=== PATIENT | male | born 1930 ===

== ENCOUNTER 2016-07-11 15:15 | Inpatient (IN) | payer MEDICARE, MEDICAID ==
[2016-07-11 15:15] VITALS: BMI 31.8
--- NOTE | 2016-07-11 16:40 | ED PDOC ---
Lower Extremity Pain/Injury Time Seen by Provider: 07/11/16 16:01 Chief Complaint (Nursing): Lower Extremity Problem/Injury Additional Complaint(s): Patient is an 85 y/o F with hx of htn, hyperlipidemia, on eliquis (for ?clots), presenting after fall 15 days ago. He reports that he walks with a cane at baseline and lost his footing- falling onto his R knee. He reports increasing pain and swelling since that time. Also reports swelling to L lower extremity. He reports dyspnea on exertion and intermittent chest pain. He reports prior cardiac workup, but is a poor historian and cannot provide further information. He reports that he ambulates at baseline with a cane but the lower extremity edema is making it almost impossible to walk. PMD: [facility] Past Medical History Vital Signs: Last Vital Signs Temp 97.6 F 07/11/16 15:40 Pulse 60 07/11/16 15:40 Resp 20 07/11/16 15:40 BP 148/75 07/11/16 15:40 Pulse Ox 98 07/11/16 15:40 - Medical History PMH: Anxiety, Arthritis, Back Problems, HTN Denies: HIV, Chronic Kidney Disease - Surgical History Surgical History: Back Surgery - Family History Family History: States: Unknown Family Hx - Home Medications Home Medications: Ambulatory Orders Medication Instructions Recorded Hydrochlorothiazide [HCTZ] 25 mg PO S[place]UTHSA 04/07/14 Pantoprazole [Protonix EC Tab] 40 mg PO DAILY 04/07/14 Sertraline [Zoloft] 100 mg PO DAILY 04/07/14 Tamsulosin HCl [Flomax] 0.4 mg PO DAILY 04/07/14 Albuterol 0.083% [Albuterol 0.083% 3 ml IH Q4H PRN 09/16/15 Inhal Aster (2.5 mg/3 ml) UD] Albuterol HFA [Ventolin HFA 90 1 puff IH TID PRN 09/16/15 mcg/actuation (8 g)] Aspirin [Ecotrin] 81 mg PO DAILY 09/16/15 Atorvastatin [Lipitor] 20 mg PO HS 09/16/15 Finasteride [Proscar] 5 mg PO DAILY 09/16/15 Gabapentin [Neurontin] 300 mg PO TID 09/16/15 Hydrochlorothiazide [HCTZ] 50 mg PO MOWEFR 09/16/15 Ipratropium 0.02% [Atrovent] 2.5 ml IH Q4 PRN 09/16/15 Lisinopril [Zestril] 20 mg PO DAILY 09/16/15 Metoprolol Succinate [Toprol XL] 100 mg PO DAILY 09/16/15 Multivitamin [Multi-Vitamin Daily] 1 tab PO DAILY 09/16/15 Naproxen 500 mg PO BID PRN 09/16/15 Torsemide [Demadex] 20 mg PO DAILY 09/16/15 Apixaban [Eliquis] 2.5 mg PO BID #60 tablet 09/18/15 Clindamycin [Cleocin] 600 mg PO Q8 #24 cap 09/18/15 Ferrous Sulfate 325 mg PO BID #60 tablet 09/18/15 Sennosides/Docusate Sodium [Eq 1 each PO BID #60 tablet 09/18/15 Stool Softener-Laxative Tab] - Allergies Allergies/Adverse Reactions: Allergies Allergy/AdvReac Type Severity Reaction Status Date / Time No Known Allergies Allergy Verified 07/11/16 15:40 Review of Systems Constitutional: Negative for: Fever, Chills Cardiovascular: Positive for: Chest Pain, Edema. Negative for: Palpitations Respiratory: Positive for: Shortness of Breath, SOB with Exertion. Negative for : Cough Gastrointestinal: Negative for: Nausea, Vomiting, Abdominal Pain, Diarrhea, Constipation Genitourinary Male: Negative for: Dysuria Musculoskeletal: Positive for: Other (knee pain). Negative for: Neck Pain Neurological: Negative for: Weakness, Numbness Psych: Negative for: Anxiety, Depression Physical Exam - Physical Exam Appears: Positive for: Well, Non-toxic Head Exam: Positive for: ATRAUMATIC, NORMAL INSPECTION, NORMOCEPHALIC Skin: Positive for: Normal Color Neck: Positive for: Normal, Supple Cardiovascular/Chest: Positive for: Regular Rate, Rhythm Respiratory: Positive for: Normal Breath Sounds. Negative for: Accessory Muscle Use, Stridor, Wheezing Gastrointestinal/Abdominal: Positive for: Soft. Negative for: Tenderness, Distended Extremity: Positive for: Pedal Edema, Other (2+ pitting edema extending up toward knee. Swelling to R knee. Normal ROM. Distal pulses intact) - Laboratory Results Result Diagrams: 07/11/16 16:40 07/11/16 16:40 - ECG O2 Sat by Pulse Oximetry: 98 Medical Decision Making Medical Decision Making: Patient has pitting edema b/l. Will get xray R knee to r/o fracture. Will get duplex to r/o dvt. Will get labs and ua to evaluate for cardiac, renal or hepatic causes of lower extremity edema. 6:17PM BNP and trop x 1 negative. Chart review shows prior normal echo in 2014. Creatinine WNL. Cxray negative. UA shows proteinuria. Knee xray negative. EKG shows NSR at 64bpm with no ST changes, but sinus arrhythmia 6:56PM U/S negative for DVT. Spoke to family resource specialist. Recommend tele observation for diuresis and further evaluation of lower extremity edema. Disposition - Clinical Impression Clinical Impression: Knee pain, Edema - Disposition Disposition: Against Medical Advice Disposition Time: 19:01 Condition: UNKNOWN
[2016-07-11 17:10] LABS: BASO # 0.1 K/uL (0.0-0.2); BASO % 0.9 % (0.0-2.0); EOS # 0.5 K/uL (0.0-0.7); EOS % 6.5 % (0.0-4.0); HEMATOCRIT 42.4 % (35.0-51.0); LYMPH # 1.7 K/uL (1.0-4.3); MEAN CELL VOLUME 92.5 fl (80.0-94.0); MEAN CORPUSCULAR HEMOGLOBIN 30.3 pg (27.0-31.0); MEAN CORPUSCULAR HGB CONC 32.8 g/dL (33.0-37.0); MEAN PLATELET VOLUME 9.5 fl (7.2-11.7); MONO # 0.8 K/uL (0.0-0.8); MONO % 10.5 % (0.0-10.0); NEUT # 4.2 K/uL (1.8-7.0); NEUT % 58.1 % (50.0-75.0); NRBC % 0.1 % (0.0-0.0); RED CELL DISTRIBUTION WIDTH 13.6 % (11.5-14.5); WHITE BLOOD COUNT 7.2 K/uL (4.8-10.8)
[2016-07-11 17:30] LABS: ALB/GLOB RATIO 1.2 (1.0-2.1); ALKALINE PHOSPHATASE 89 U/L (38-126); ALT/SGPT 31 U/L (21-72); AST/SGOT 27 U/L (17-59); BILIRUBIN,TOTAL 0.4 mg/dl (0.2-1.3); BLOOD UREA NITROGEN 24 mg/dl (9-20); CALCIUM 9.1 mg/dL (8.4-10.2); CARBON DIOXIDE 26 mmol/L (22-30); CHLORIDE 102 mmol/L (98-107); GFR AFRICAN-AMERICAN > 60; GLUCOSE,RANDOM 80 mg/dL (75-110); POTASSIUM 4.6 MMOL/L (3.6-5.0); SODIUM 138 mmol/l (132-148); TOTAL PROTEIN 7.4 G/DL (6.3-8.2)
[2016-07-11 17:32] LABS: RBC URINE 3 /hpf (0-3); URINE BILIRUBIN NEGATIVE (NEGATIVE); URINE BLOOD NEGATIVE (NEGATIVE); URINE COLOR YELLOW (YELLOW); URINE GLUCOSE (UA) NEG (Normal); URINE KETONE NEGATIVE (NEGATIVE); URINE LEUKOCYTE ESTERASE NEG Leu/uL (Negative); URINE PROTEIN 100 mg/dL (NEGATIVE); URINE UROBILINOGEN 0.2-1.0 mg/dL (0.2-1.0); WBC URINE 1 /hpf (0-5)
--- NOTE | 2016-07-11 17:44 | RAD ---
HISTORY: lower extremity swelling COMPARISON: No prior. FINDINGS: LUNGS: No active pulmonary disease. PLEURA: No significant pleural effusion identified, no pneumothorax apparent. CARDIOVASCULAR: Normal. OSSEOUS STRUCTURES: Old fracture of the right clavicle. VISUALIZED UPPER ABDOMEN: Normal. OTHER FINDINGS: None. IMPRESSION: No active disease.
--- NOTE | 2016-07-11 17:46 | RAD ---
HISTORY: pain and swelling after fall x 15 days ago COMPARISON: No prior FINDINGS: BONES: Normal. No fracture. JOINTS: Normal. No osteoarthritis. SOFT TISSUE: Medial soft tissue swelling. OTHER FINDINGS: None . IMPRESSION: No fracture.
--- NOTE | 2016-07-11 18:58 | US ---
PROCEDURE: Bilateral lower extremity venous duplex Doppler. HISTORY: b/l lower extremity swelling COMPARISON: Comparison made with prior bilateral lower extremity venous Doppler exam 09/30/2015 TECHNIQUE: Bilateral common femoral, superficial femoral, popliteal and posterior tibial veins were evaluated. Flow was assessed with color Doppler, compressibility, assessment of phasic flow and augmentation response. FINDINGS: COMMON FEMORAL VEIN: Right CFV: Unremarkable. Left CFV: Unremarkable. SUPERFICIAL FEMORAL VEIN: Right SFV: Unremarkable. Left SFV: Unremarkable. POPLITEAL VEIN: Right Popliteal: Unremarkable. Left Popliteal: Unremarkable. POSTERIOR TIBIAL VEIN: Right PTV: Unremarkable. Left PTV: Unremarkable. OTHER FINDINGS: None. IMPRESSION: No evidence of deep venous thrombosis.
--- NOTE | 2016-07-11 20:09 | CP.PCM.HP ---
History of Present Illness - History of Present Illness History of Present Illness: CC: Fall 15 days ago and bilateral LE edema 84 y/o M with pmh of a fib, HTN, HLD, BPH, chronic back pain admitted due to BL LE edema. Patient reports fall 15 days ago for which he did not see a doctor until today. He walks with a cane at baseline and lost his footing- falling onto his R knee. He reports increasing pain and swelling since that time. Also reports swelling to L lower extremity. He reports dyspnea on exertion, cannot walk 1 block without feeling SOB, cannot climb stairs. Patient states these Sx have been present for many years but have worsened over the past month or so. Patient denies current CP, SOB at rest, abdominal pain, nausea/vomiting, diarrhea, lower extremity swelling, palpitations, urinary disturbances, focal weakness. PMD: Dr. Farrukh Etienne PMH: HTN, 4 cervical disc herniations, BPH, anxiety, a fib, HLD Allergies: NKDA Medications: per ECW Taking Finasteride 5 MG Tablet Taking Flomax 0.4 MG Capsule Taking Eliquis 2.5 MG Tablet Start Ultracet 37.5-325 MG Tablet Taking Atorvastatin Calcium 20 MG Tablet Continue Gabapentin 300 MG Capsule Taking Hydrochlorothiazide 25 MG Tablet Taking Lisinopril 40 MG Tablet Taking Metoprol 100 tablet Taking Ferrous Sulfate 325 (65 Fe) MG Tablet Taking Sennosides-Docusate Sodium 8.6-50 MG Tablet Taking Cleocin 300 MG Capsule Taking Sertraline HCl 100 MG Tablet Taking Pantoprazole Sodium 40 MG Tablet Delayed Release Taking Ecotrin Low Strength 81 MG Tablet Delayed Release Surgeries: Varicose Vein ablation, Herniated Cervical Disc Surgeries x 4 Social: Patient has history of tobacco abuse-quit 40 years ago, used to smoke 1 pack.day x 30 years. ETOH abuse.1 bottle of hard liquor occasional, but "many years ago''. Denies illicit drug use. Patient ambulates with cane. ED Course: Patient has pitting edema b/l. xray R knee to r/o fracture. duplex to r/o dvt. labs and ua to evaluate for cardiac, renal or hepatic causes of lower extremity edema. BNP and trop x 1 negative. Chart review shows prior normal echo in 2015. Creatinine WNL. Cxray negative. UA shows proteinuria. Knee xray negative. EKG shows NSR at 64bpm with no ST changes, but sinus arrhythmia U/S negative for DVT. Present on Admission - Present on Admission Any Indicators Present on Admission: No Review of Systems - Review of Systems Review of Systems: see hpi Past Patient History - Past Medical History & Family History Past Medical History?: Yes - Past Social History Smoking Status: Former Smoker - CARDIAC Hx Hypertension: Yes - PULMONARY Hx Respiratory Disorders: No - NEUROLOGICAL Hx Neurological Disorder: No - HEENT Hx HEENT Problems: Yes Hx Cataracts: Yes - RENAL Hx Chronic Kidney Disease: No - ENDOCRINE/METABOLIC Hx Endocrine Disorders: No - HEMATOLOGICAL/ONCOLOGICAL Hx Human Immunodeficiency Virus (HIV): No - INTEGUMENTARY Hx Dermatological Problems: No - MUSCULOSKELETAL/RHEUMATOLOGICAL Hx Arthritis: Yes - GASTROINTESTINAL Hx Gastrointestinal Disorders: No - GENITOURINARY/GYNECOLOGICAL Hx Genitourinary Disorders: Yes Hx Prostate Problems: Yes - PSYCHIATRIC Hx Anxiety: Yes - SURGICAL HISTORY Hx Surgeries: Yes Hx Musculoskeletal Surgery: Yes (BACK SURGERY 2014) Hx Orthopedic Surgery: Yes (CLAVICULAR SURGERY RIGHT) Other/Comment: VARICOSE VEIN ABLATION - ANESTHESIA Hx Anesthesia: Yes Hx Anesthesia Reactions: No Hx Malignant Hyperthermia: No Meds Allergies/Adverse Reactions: Allergies Allergy/AdvReac Type Severity Reaction Status Date / Time No Known Allergies Allergy Verified 07/11/16 15:40 Physical Exam - Constitutional Appears: Non-toxic, No Acute Distress - Head Exam Head Exam: ATRAUMATIC - Eye Exam Eye Exam: EOMI Pupil Exam: PERRL - ENT Exam ENT Exam: Mucous Membranes Moist - Neck Exam Neck exam: Positive for: Full Rom - Respiratory Exam Respiratory Exam: Clear to Auscultation Bilateral. absent: Rales, Rhonchi, Wheezes - Cardiovascular Exam Cardiovascular Exam: +S1, +S2 - GI/Abdominal Exam GI & Abdominal Exam: Normal Bowel Sounds, Soft. absent: Tenderness - Extremities Exam Additional comments: right knee swelling with limited ROM BL LE 2+ pitting edema extending to knee - Neurological Exam Neurological exam: Alert, Oriented x3 - Psychiatric Exam Psychiatric exam: Normal Affect, Normal Mood - Skin Skin Exam: Dry, Warm Results - Vital Signs Recent Vital Signs: Last Vital Signs Temp 97.6 F 07/11/16 15:40 Pulse 60 07/11/16 15:40 Resp 20 07/11/16 15:40 BP 148/75 07/11/16 15:40 Pulse Ox 98 07/11/16 19:17 - Labs Result Diagrams: 07/11/16 16:40 07/11/16 16:40 Assessment & Plan - Assessment and Plan (Free Text) Plan: 84 y/o M with pmh of a fib, HTN, HLD, BPH, chronic back pain admitted due to BL LE edema. Patient reports fall 15 days ago for which he did not see a doctor until today. BL lower extermity pitting edema extending up to preciado ED Course: BNP 340 and trop x 1 negative. Creatinine WNL. Cxray negative. Knee xray negative. UA shows proteinuria but no infection. EKG shows NSR at 64bpm with no ST changes, but sinus arrhythmia U/S negative for DVT. 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
[2016-07-12 07:16] LABS: BASO # 0.1 K/uL (0.0-0.2); BASO % 1.8 % (0.0-2.0); EOS # 0.6 K/uL (0.0-0.7); EOS % 8.7 % (0.0-4.0); LYMPH # 1.9 K/uL (1.0-4.3); LYMPH % 28.6 % (20.0-40.0); MEAN CELL VOLUME 91.9 fl (80.0-94.0); MEAN CORPUSCULAR HEMOGLOBIN 30.7 pg (27.0-31.0); MEAN CORPUSCULAR HGB CONC 33.4 g/dL (33.0-37.0); MEAN PLATELET VOLUME 9.7 fl (7.2-11.7); MONO # 0.7 K/uL (0.0-0.8); MONO % 10.7 % (0.0-10.0); NEUT # 3.4 K/uL (1.8-7.0); NEUT % 50.2 % (50.0-75.0); NRBC % 0.1 % (0.0-0.0); WHITE BLOOD COUNT 6.8 K/uL (4.8-10.8)
[2016-07-12 07:35] LABS: ALB/GLOB RATIO 1.2 (1.0-2.1); ALKALINE PHOSPHATASE 81 U/L (38-126); ALT/SGPT 35 U/L (21-72); AST/SGOT 26 U/L (17-59); BILIRUBIN,TOTAL 0.5 mg/dl (0.2-1.3); BLOOD UREA NITROGEN 21 mg/dl (9-20); CALCIUM 9.1 mg/dL (8.4-10.2); CARBON DIOXIDE 30 mmol/L (22-30); CHLORIDE 99 mmol/L (98-107); GFR AFRICAN-AMERICAN > 60; GLUCOSE,RANDOM 98 mg/dL (75-110); POTASSIUM 3.4 MMOL/L (3.6-5.0); SODIUM 141 mmol/l (132-148); TOTAL PROTEIN 7.4 G/DL (6.3-8.2)
[2016-07-12] MEDS: Metoprolol Succinate 100 mg XL Tab PO SCH (10:08)
[2016-07-12] MEDS: Pantoprazole 40 mg EC Tab PO SCH (10:08)
--- NOTE | 2016-07-12 17:43 | CP.PCM.PN ---
Subjective - Date & Time of Evaluation Date of Evaluation: 07/12/16 Time of Evaluation: 07:40 - Subjective Subjective: 85 y/o M admitted for B/L LE edema seen at bedside in not acute distress, comfortable in bed. Patient states edema has already improved since admission. He admits SOB with min exertion. Denies CP, palpitations, dizziness, abd pain or calf pain. Afebrile. Patient admits fall 2 weeks ago and he hit his R/knee. Objective - Vital Signs/Intake and Output Vital Signs (last 24 hours): Temp Pulse Resp BP Pulse Ox 98.0 F 69 18 119/61 95 07/12/16 15:31 07/12/16 15:31 07/12/16 15:31 07/12/16 16:35 07/12/16 15:31 - Medications Medications: Current Medications Acetaminophen (Tylenol 325mg Tab) 650 mg PO Q4 PRN PRN Reason: Pain, moderate (4-7) Apixaban (Eliquis) 2.5 mg PO BID [facility] PRN Reason: Protocol Last Admin: 07/12/16 16:35 Dose: 2.5 mg Aspirin (Ecotrin) 81 mg PO DAILY [facility] Last Admin: 07/12/16 10:07 Dose: 81 mg Atorvastatin Calcium (Lipitor) 20 mg PO HS [facility] Last Admin: 07/11/16 22:18 Dose: 20 mg Finasteride (Proscar) 5 mg PO DAILY [facility] Last Admin: 07/12/16 10:08 Dose: 5 mg Furosemide (Lasix) 40 mg IVP BID [facility] Last Admin: 07/12/16 16:35 Dose: 40 mg Gabapentin (Neurontin) 300 mg PO TID [facility] Last Admin: 07/12/16 16:35 Dose: 300 mg Hydrochlorothiazide (Hydrodiuril) 25 mg PO DAILY [facility] Last Admin: 07/12/16 10:07 Dose: 25 mg Lisinopril (Zestril) 40 mg PO DAILY [facility] Last Admin: 07/12/16 10:09 Dose: 40 mg Metoprolol Succinate (Toprol Xl) 100 mg PO DAILY [facility] Last Admin: 07/12/16 10:08 Dose: 100 mg Ondansetron HCl (Zofran Inj) 4 mg IVP Q6 PRN PRN Reason: Nausea/Vomiting Pantoprazole Sodium (Protonix Ec Tab) 40 mg PO DAILY [facility] Last Admin: 07/12/16 10:08 Dose: 40 mg Sertraline HCl (Zoloft) 100 mg PO DAILY [facility] Last Admin: 07/12/16 10:09 Dose: 100 mg Tamsulosin HCl (Flomax) 0.4 mg PO DAILY [facility] Last Admin: 07/12/16 10:07 Dose: 0.4 mg Tramadol HCl (Ultram) 50 mg PO Q6 PRN PRN Reason: Pain, severe (8-10) Last Admin: 07/11/16 22:34 Dose: 50 mg - Constitutional Appears: Non-toxic, No Acute Distress - Eye Exam Eye Exam: PERRL - ENT Exam ENT Exam: Mucous Membranes Moist - Respiratory Exam Respiratory Exam: Clear to Ausculation Bilateral, NORMAL BREATHING PATTERN. absent: Rales - Cardiovascular Exam Cardiovascular Exam: +S1, +S2. absent: Gallop - GI/Abdominal Exam GI & Abdominal Exam: Soft, Normal Bowel Sounds. absent: Distended, Tenderness - Extremities Exam Extremities Exam: Pedal Edema Additional comments: B/L LE edema with mild redness associated in anterior tibial area of right leg. Also R/knee swelling and mild tender. - Neurological Exam Neurological Exam: Alert, Awake, Oriented x3 - Psychiatric Exam Psychiatric exam: Normal Affect, Normal Mood - Skin Skin Exam: Warm Assessment and Plan - Assessment and Plan (Free Text) Assessment: 84 y/o M with pmh of a fib, HTN, HLD, BPH, admitted due to BL LE edema. BL lower extremity pitting edema BNP 340 and trop x 2 negative. Creatinine WNL. Cxray negative. Knee xray negative. UA shows proteinuria but no infection. EKG sinus arrhythmia U/S negative for DVT. 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
[2016-07-12] MEDS: Potassium Chloride 20 mEq ER Tab PO SCH (18:41)
--- NOTE | 2016-07-12 18:49 | CARD ---
APPROVED REPORT EXAM: Two-dimensional and M-mode echocardiogram with Doppler and color Doppler. Other Information Quality : AverageRhythm : NSR Technically limited study due to Poor Echo Window INDICATION Dyspnea 2D DIMENSIONS IVSd1.29 (0.7-1.1cm)LVDd4.08 (3.9-5.9cm) PWd0.97 (0.7-1.1cm)IVSs1.67 (0.8-1.2cm) LVDs3.22 (2.5-4.0cm)FS (%) 21.0 % PWs1.48 (0.8-1.2cm)LVEF (%)55.0 (>50%) M-Mode DIMENSIONS Left Atrium (MM)5.41 (2.5-4.0cm)IVSd1.41 (0.7-1.1cm) Aortic Root3.38 (2.2-3.7cm)LVDd4.31 (4.0-5.6cm) Aortic Cusp Exc.1.94 (1.5-2.0cm)PWd0.97 (0.7-1.1cm) IVSs1.50 cmFS (%) 41 % LVDs2.56 (2.0-3.8cm)PWs1.53 cm Mitral Valve E/A ratio0.0 TDI E/Lateral E'0.0E/Medial E'0.0 LEFT VENTRICLE The left ventricle is normal size. There is mild concentric left ventricular hypertrophy. The left ventricular function is normal. The left ventricular ejection fraction is within the normal range. There is normal LV segmental wall motion. Transmitral Doppler flow pattern is Grade I-abnormal relaxation pattern. RIGHT VENTRICLE The right ventricle is normal size. There is normal right ventricular wall thickness. The right ventricular systolic function is normal. ATRIA The left atrium size is normal. The right atrium size is normal. AORTIC VALVE The aortic valve is not well visualized. There is trace aortic regurgitation. There is no aortic valvular stenosis. MITRAL VALVE The mitral valve is not well visualized. There is no mitral valve stenosis. Mitral regurgitation is trace. TRICUSPID VALVE The tricuspid valve is normal in structure and function. There is no tricuspid valve regurgitation noted. PULMONIC VALVE The pulmonary valve is normal in structure and function. There is no pulmonic valvular regurgitation. GREAT VESSELS The aortic root is normal in size. The IVC was not visualized. PERICARDIAL EFFUSION The pericardium appears normal. <Conclusion> The left ventricle is normal size. There is mild concentric left ventricular hypertrophy. The left ventricular function is normal. The left ventricular ejection fraction is within the normal range. There is normal LV segmental wall motion. Transmitral Doppler flow pattern is Grade I-abnormal relaxation pattern.
[2016-07-13 07:12] LABS: BLOOD UREA NITROGEN 31 mg/dl (9-20); CARBON DIOXIDE 31 mmol/L (22-30); CHLORIDE 97 mmol/L (98-107); GFR AFRICAN-AMERICAN > 60; GLUCOSE,RANDOM 86 mg/dL (75-110); MAGNESIUM 1.9 MG/DL (1.6-2.3); POTASSIUM 3.6 MMOL/L (3.6-5.0); SODIUM 138 mmol/l (132-148)
[2016-07-13] MEDS: Potassium Chloride 20 mEq ER Tab PO SCH (10:18)
[2016-07-13] MEDS: Pantoprazole 40 mg EC Tab PO SCH (10:19)
[2016-07-13] MEDS: Metoprolol Succinate 100 mg XL Tab PO SCH (10:20)
--- NOTE | 2016-07-13 12:05 | PQF GENQUE ---
Dr. Turcios, Please clarify the type of atrial fibrillation: if known >> Chronic >> Paroxysmal >> Permanent >> Persistent >> Other (please specify type) OR: Unable to determine OR: Unknown H and P:Afib ;controlled ;EKG today NSR at 64 bpm ;eliquis 2.5 mg BID This form is a permanent part of the medical record Clarification of your documentation is requested to better reflect the severity of illness and intensity of treatment of your patient. Indicators present [] Specify: [] [] Specify: [] [] Specify: [] [] Specify: [] Location in the medical record that reflects the above clinical findings: [] Treatment Provided: [] PHYSICIAN'S RESPONSE Based on your medical judgment of the clinical indicators outlined above please clarify the following: [] Practitioner response [] If unable to determine, please check the box, sign and date. Present On Admission (POA) Indicator: [] Present at the time of admission [] Not present at the time of admission [] Clinically Undetermined In responding to this query, please exercise your independent professional judgment. The fact that a question is asked does not imply that any particular answer is desired or expected. Thank you for your clarification on this documentation. If you have any questions please call. * Thank you, Verónica Davison RN BSN ext. #[phone] MTDD
--- NOTE | 2016-07-13 14:12 | CP.PCM.PN ---
Subjective - Date & Time of Evaluation Date of Evaluation: 07/13/16 Time of Evaluation: 07:50 - Subjective Subjective: 85 y/o M with PMHx of chronic A.fib admitted for B/L edema and s/p fall 2 weeks ago seen at bedside in not acute distress. Patient c/o leg pain b/l improved since yesterday as well as the swelling. Denies, CP, palpitations or SOB at rest. Objective - Vital Signs/Intake and Output Vital Signs (last 24 hours): Temp Pulse Resp BP Pulse Ox 97.9 F 67 18 94/50 L 95 07/13/16 12:01 07/13/16 12:01 07/13/16 12:01 07/13/16 12:01 07/13/16 12:01 - Medications Medications: Current Medications Acetaminophen (Tylenol 325mg Tab) 975 mg PO Q8 [facility] Apixaban (Eliquis) 2.5 mg PO BID [facility] PRN Reason: Protocol Last Admin: 07/13/16 10:17 Dose: 2.5 mg Aspirin (Ecotrin) 81 mg PO DAILY [facility] Last Admin: 07/13/16 10:17 Dose: 81 mg Atorvastatin Calcium (Lipitor) 20 mg PO HS [facility] Last Admin: 07/12/16 21:52 Dose: 20 mg Finasteride (Proscar) 5 mg PO DAILY [facility] Last Admin: 07/13/16 10:19 Dose: 5 mg Furosemide (Lasix) 20 mg IVP BID [facility] Gabapentin (Neurontin) 300 mg PO TID [facility] Last Admin: 07/13/16 13:19 Dose: 300 mg Hydrochlorothiazide (Hydrodiuril) 25 mg PO DAILY [facility] Last Admin: 07/13/16 10:18 Dose: 25 mg Lisinopril (Zestril) 40 mg PO DAILY [facility] Last Admin: 07/13/16 10:20 Dose: 40 mg Metoprolol Succinate (Toprol Xl) 100 mg PO DAILY [facility] Last Admin: 07/13/16 10:20 Dose: 100 mg Ondansetron HCl (Zofran Inj) 4 mg IVP Q6 PRN PRN Reason: Nausea/Vomiting Pantoprazole Sodium (Protonix Ec Tab) 40 mg PO DAILY [facility] Last Admin: 07/13/16 10:19 Dose: 40 mg Potassium Chloride (K-Dur 20 Meq Er Tab) 40 meq PO DAILY [facility] Last Admin: 07/13/16 10:18 Dose: 40 meq Sertraline HCl (Zoloft) 100 mg PO DAILY [facility] Last Admin: 07/13/16 10:20 Dose: 100 mg Tamsulosin HCl (Flomax) 0.4 mg PO DAILY [facility] Last Admin: 07/13/16 10:17 Dose: 0.4 mg Tramadol HCl (Ultram) 50 mg PO Q6 PRN PRN Reason: Pain, severe (8-10) Last Admin: 07/13/16 10:28 Dose: 50 mg - Labs Labs: 07/13/16 05:05 - Constitutional Appears: Non-toxic, No Acute Distress - Head Exam Head Exam: NORMAL INSPECTION - Eye Exam Eye Exam: PERRL - Respiratory Exam Respiratory Exam: Clear to Ausculation Bilateral, NORMAL BREATHING PATTERN. absent: Wheezes - Cardiovascular Exam Cardiovascular Exam: Irregular Rhythm, +S1, +S2. absent: Gallop, Murmur - GI/Abdominal Exam GI & Abdominal Exam: Soft, Normal Bowel Sounds. absent: Tenderness - Extremities Exam Extremities Exam: Joint Swelling, Normal Capillary Refill, Pedal Edema (B/L LE below knees edema with mild redness in anterior tibial aspect or R/leg. NO loss of skin integrity) Additional comments: r/knee - Neurological Exam Neurological Exam: Alert, Awake, Oriented x3 Neuro motor strength exam: Left Upper Extremity: 4, Right Upper Extremity: 4, Left Lower Extremity: 4, Right Lower Extremity: 4 - Psychiatric Exam Psychiatric exam: Normal Affect, Normal Mood - Skin Skin Exam: Warm Assessment and Plan - Assessment and Plan (Free Text) Assessment: 84 y/o M with pmh of a fib, HTN, HLD, BPH, admitted due to BL LE edema. BL lower extremity pitting edema improved BNP 340 and trop x 2 negative. Creatinine WNL. Cxray negative. Knee xray negative. UA shows proteinuria but no infection. EKG sinus arrhythmia U/S negative for DVT. lasix decreased to 20mg BID ECHO: EF normal Unsteady gait B/L leg pain PT/OT eval ordered S/P fall 2 weeks ago with trauma to the R/Knee Afib chronic stable elaquis 2.5 mg BID HTN hctz, lisinopril, metoprolol HLD c/w atorvastatin BPH c/w finasteride and flomax PPx DVT - on elaquis for a.fib, SCDs
[2016-07-14] MEDS: Potassium Chloride 20 mEq ER Tab PO SCH (09:00)
[2016-07-14] MEDS: Metoprolol Succinate 100 mg XL Tab PO SCH (09:00)
[2016-07-14] MEDS: Pantoprazole 40 mg EC Tab PO SCH (09:00)
[2016-07-14] MEDS: Lidocaine 5% Patch TD SCH (15:00)
[2016-07-15 07:37] VITALS: RESP 20; O2SAT 94
[2016-07-15] MEDS: Potassium Chloride 20 mEq ER Tab PO SCH (08:50)
[2016-07-15] MEDS: Lidocaine 5% Patch TD SCH (08:50)
[2016-07-15] MEDS: Metoprolol Succinate 100 mg XL Tab PO SCH (08:51)
[2016-07-15] MEDS: Pantoprazole 40 mg EC Tab PO SCH (08:51)
[2016-07-15 12:06] VITALS: BP 118/69; PULSE 73; TEMP 98
--- NOTE | 2016-07-15 14:54 | CP.PCM.DIS ---
<Ian Meadows - Last Filed: 07/17/16 13:25> Provider - Provider Date of Admission: 07/12/16 17:10 Attending physician: Kallie Turcios MD Primary care physician: Farrukh Etienne MD Consults: Physical Therapy Time Spent in preparation of Discharge (in minutes): 30 Diagnosis - Discharge Diagnosis (1) Lower extremity edema Status: Acute Comment: Improved. NO DVT. PT home services, F/U outpatient (2) Hypertension Status: Chronic Comment: Stable (3) BPH (benign prostatic hyperplasia) Status: Chronic Comment: Stable Hospital Course - Lab Results Lab Results: Most Recent Lab Values WBC 6.8 K/uL (4.8-10.8) 07/12/16 05:00 RBC 4.79 Mil/uL (4.40-5.90) 07/12/16 05:00 Hgb 14.7 g/dL (12.0-18.0) 07/12/16 05:00 Hct 44.0 % (35.0-51.0) 07/12/16 05:00 MCV 91.9 fl (80.0-94.0) 07/12/16 05:00 MCH 30.7 pg (27.0-31.0) 07/12/16 05:00 MCHC 33.4 g/dL (33.0-37.0) 07/12/16 05:00 RDW 14.0 % (11.5-14.5) 07/12/16 05:00 Plt Count 207 K/uL (130-400) 07/12/16 05:00 MPV 9.7 fl (7.2-11.7) 07/12/16 05:00 Neut % (Auto) 50.2 % (50.0-75.0) 07/12/16 05:00 Lymph % (Auto) 28.6 % (20.0-40.0) 07/12/16 05:00 Bladen % (Auto) 10.7 % (0.0-10.0) H 07/12/16 05:00 Eos % (Auto) 8.7 % (0.0-4.0) H 07/12/16 05:00 Baso % (Auto) 1.8 % (0.0-2.0) 07/12/16 05:00 Neut # 3.4 K/uL (1.8-7.0) 07/12/16 05:00 Lymph # 1.9 K/uL (1.0-4.3) 07/12/16 05:00 Bladen # 0.7 K/uL (0.0-0.8) 07/12/16 05:00 Eos # 0.6 K/uL (0.0-0.7) 07/12/16 05:00 Baso # 0.1 K/uL (0.0-0.2) 07/12/16 05:00 Sodium 138 mmol/l (132-148) 07/13/16 05:05 Potassium 3.6 MMOL/L (3.6-5.0) 07/13/16 05:05 Chloride 97 mmol/L (98-107) L 07/13/16 05:05 Carbon Dioxide 31 mmol/L (22-30) H 07/13/16 05:05 Anion Gap 14 (10-20) 07/13/16 05:05 BUN 31 mg/dl (9-20) H 07/13/16 05:05 Creatinine 1.1 mg/dL (0.8-1.5) 07/13/16 05:05 Est GFR ( Amer) > 60 07/13/16 05:05 Est GFR (Non-Af Amer) > 60 07/13/16 05:05 Random Glucose 86 mg/dL (75-110) 07/13/16 05:05 Calcium 9.0 mg/dL (8.4-10.2) 07/13/16 05:05 Magnesium 1.9 MG/DL (1.6-2.3) 07/13/16 05:05 Total Bilirubin 0.5 mg/dl (0.2-1.3) 07/12/16 05:00 AST 26 U/L (17-59) 07/12/16 05:00 ALT 35 U/L (21-72) 07/12/16 05:00 Alkaline Phosphatase 81 U/L (38-126) 07/12/16 05:00 Total Creatine Kinase 124 U/L (55-170) 07/11/16 16:40 CK-MB (Mass) 5.40 ng/mL (0.0-3.38) H 07/11/16 16:40 Troponin I < 0.0120 ng/mL (0.00-0.120) 07/11/16 16:40 NT-Pro-B Natriuret Pep 341 pg/ml (0-900) 07/11/16 16:40 Total Protein 7.4 G/DL (6.3-8.2) 07/12/16 05:00 Albumin 4.1 g/dL (3.5-5.0) 07/12/16 05:00 Globulin 3.3 gm/dL (2.2-3.9) 07/12/16 05:00 Albumin/Globulin Ratio 1.2 (1.0-2.1) 07/12/16 05:00 Urine Color Yellow (YELLOW) 07/11/16 17:14 Urine Clarity Clear (Clear) 07/11/16 17:14 Urine pH 5.0 (5.0-8.0) 07/11/16 17:14 Ur Specific [place] 1.024 (1.003-1.030) 07/11/16 17:14 Urine Protein 100 mg/dL (NEGATIVE) 07/11/16 17:14 Urine Glucose (UA) Neg mg/dL (Normal) 07/11/16 17:14 Urine Ketones Negative mg/dL (NEGATIVE) 07/11/16 17:14 Urine Blood Negative (NEGATIVE) 07/11/16 17:14 Urine Nitrate Negative (NEGATIVE) 07/11/16 17:14 Urine Bilirubin Negative (NEGATIVE) 07/11/16 17:14 Urine Urobilinogen 0.2-1.0 mg/dL (0.2-1.0) 07/11/16 17:14 Ur Leukocyte Esterase Neg Christina/uL (Negative) 07/11/16 17:14 Urine RBC (Auto) 3 /hpf (0-3) 07/11/16 17:14 Urine Microscopic WBC 1 /hpf (0-5) 07/11/16 17:14 Ur Squamous Epith Cells < 1 /hpf (0-5) 07/11/16 17:14 Hyaline Casts 0-2 /hpf (0-2) 07/11/16 17:14 - Hospital Course Hospital Course: 84 y/o M with pmh of a fib, HTN, HLD, BPH, chronic back pain admitted to hosp for BL LE edema. Patient reports fall 15 days before admission and has had knee pain since then. LE US negative for DVT, Knee XRay negative for Fx and patient edema improved during his hosp stay. Patient was evaluated by PT who recommended Home services and today patient is DC home with referral for PT home services and f/u appt with PMD for next week. Discharge meds: Hydrochlorothiazide [HCTZ] 25 mg PO SUTUTHSA Pantoprazole [Protonix EC Tab] 40 mg PO DAILY Sertraline [Zoloft] 100 mg PO DAILY Tamsulosin HCl [Flomax] 0.4 mg PO DAILY Albuterol 0.083% [Albuterol 0.083% 3 ml IH Q4H PRN Inhal Aster (2.5 mg/3 ml) UD] Albuterol HFA [Ventolin HFA 90 1 puff IH TID PRN mcg/actuation (8 g)] Aspirin [Ecotrin] 81 mg PO DAILY Atorvastatin [Lipitor] 20 mg PO HS 09/16/15 Finasteride [Proscar] 5 mg PO DAILY Gabapentin [Neurontin] 300 mg PO TID Hydrochlorothiazide [HCTZ] 50 mg PO MOWEFR Ipratropium 0.02% [Atrovent] 2.5 ml IH Q4 PRN Lisinopril [Zestril] 20 mg PO DAILY Metoprolol Succinate [Toprol XL] 100 mg PO DAILY Multivitamin [Multi-Vitamin Daily] 1 tab PO DAILY Naproxen 500 mg PO BID PRN Apixaban [Eliquis] 2.5 mg PO BID #60 tablet Ferrous Sulfate 325 mg PO BID #60 tablet Sennosides/Docusate Sodium [Eq 1 each PO BID #60 tablet Stool Softener-Laxative Tab] Discharge Exam - Head Exam Head Exam: NORMAL INSPECTION - Eye Exam Eye Exam: PERRL - ENT Exam ENT Exam: Mucous Membranes Moist - Respiratory Exam Respiratory Exam: Clear to PA & Lateral, NORMAL BREATHING PATTERN, UNREMARKABLE - Cardiovascular Exam Cardiovascular Exam: RRR, +S1, +S2. absent: Gallop - GI/Abdominal Exam GI & Abdominal Exam: Normal Bowel Sounds, Soft. absent: Distended, Tenderness - Extremities Exam Extremities exam: normal capillary refill, pedal edema (B/L dependent pedal edema. No tenderness) - Neurological Exam Neurological exam: Abnormal Gait (Unsteady gait), Alert, Oriented x3 - Psychiatric Exam Psychiatric exam: Normal Affect, Normal Mood - Skin Skin Exam: Normal Color, Warm Discharge Plan - Discharge Medications Prescriptions: Furosemide [Lasix] 20 mg PO BID #60 udc Potassium Chloride 20 meq PO DAILY 30 Days - Follow Up Plan Condition: GOOD Disposition: HOME/ ROUTINE Patient education suggested?: Yes Instructions: Peripheral Artery Disease (DC), Peripheral Artery Disease (GEN) Additional Instructions: F/U with Dr Татьяна Krishnamurthy on Monday07/20/16 2:20pm at [facility] pt verbalized understanding. Referrals: Farrukh Etienne MD [Primary Care Provider] - <Sabra Silva - Last Filed: 07/18/16 11:09> Provider - Provider Date of Admission: 07/12/16 17:10 Attending physician: Kallie Turcios MD Primary care physician: Farrukh Etienne MD Hospital Course - Lab Results Lab Results: Most Recent Lab Values WBC 6.8 K/uL (4.8-10.8) 07/12/16 05:00 RBC 4.79 Mil/uL (4.40-5.90) 07/12/16 05:00 Hgb 14.7 g/dL (12.0-18.0) 07/12/16 05:00 Hct 44.0 % (35.0-51.0) 07/12/16 05:00 MCV 91.9 fl (80.0-94.0) 07/12/16 05:00 MCH 30.7 pg (27.0-31.0) 07/12/16 05:00 MCHC 33.4 g/dL (33.0-37.0) 07/12/16 05:00 RDW 14.0 % (11.5-14.5) 07/12/16 05:00 Plt Count 207 K/uL (130-400) 07/12/16 05:00 MPV 9.7 fl (7.2-11.7) 07/12/16 05:00 Neut % (Auto) 50.2 % (50.0-75.0) 07/12/16 05:00 Lymph % (Auto) 28.6 % (20.0-40.0) 07/12/16 05:00 [place] % (Auto) 10.7 % (0.0-10.0) H 07/12/16 05:00 Eos % (Auto) 8.7 % (0.0-4.0) H 07/12/16 05:00 Baso % (Auto) 1.8 % (0.0-2.0) 07/12/16 05:00 Neut # 3.4 K/uL (1.8-7.0) 07/12/16 05:00 Lymph # 1.9 K/uL (1.0-4.3) 07/12/16 05:00 [place] # 0.7 K/uL (0.0-0.8) 07/12/16 05:00 Eos # 0.6 K/uL (0.0-0.7) 07/12/16 05:00 Baso # 0.1 K/uL (0.0-0.2) 07/12/16 05:00 Sodium 138 mmol/l (132-148) 07/13/16 05:05 Potassium 3.6 MMOL/L (3.6-5.0) 07/13/16 05:05 Chloride 97 mmol/L (98-107) L 07/13/16 05:05 Carbon Dioxide 31 mmol/L (22-30) H 07/13/16 05:05 Anion Gap 14 (10-20) 07/13/16 05:05 BUN 31 mg/dl (9-20) H 07/13/16 05:05 Creatinine 1.1 mg/dL (0.8-1.5) 07/13/16 05:05 Est GFR ( Amer) > 60 07/13/16 05:05 Est GFR (Non-Af Amer) > 60 07/13/16 05:05 Random Glucose 86 mg/dL (75-110) 07/13/16 05:05 Calcium 9.0 mg/dL (8.4-10.2) 07/13/16 05:05 Magnesium 1.9 MG/DL (1.6-2.3) 07/13/16 05:05 Total Bilirubin 0.5 mg/dl (0.2-1.3) 07/12/16 05:00 AST 26 U/L (17-59) 07/12/16 05:00 ALT 35 U/L (21-72) 07/12/16 05:00 Alkaline Phosphatase 81 U/L (38-126) 07/12/16 05:00 Total Creatine Kinase 124 U/L (55-170) 07/11/16 16:40 CK-MB (Mass) 5.40 ng/mL (0.0-3.38) H 07/11/16 16:40 Troponin I < 0.0120 ng/mL (0.00-0.120) 07/11/16 16:40 NT-Pro-B Natriuret Pep 341 pg/ml (0-900) 07/11/16 16:40 Total Protein 7.4 G/DL (6.3-8.2) 07/12/16 05:00 Albumin 4.1 g/dL (3.5-5.0) 07/12/16 05:00 Globulin 3.3 gm/dL (2.2-3.9) 07/12/16 05:00 Albumin/Globulin Ratio 1.2 (1.0-2.1) 07/12/16 05:00 Urine Color Yellow (YELLOW) 07/11/16 17:14 Urine Clarity Clear (Clear) 07/11/16 17:14 Urine pH 5.0 (5.0-8.0) 07/11/16 17:14 Ur Specific [place] 1.024 (1.003-1.030) 07/11/16 17:14 Urine Protein 100 mg/dL (NEGATIVE) 07/11/16 17:14 Urine Glucose (UA) Neg mg/dL (Normal) 07/11/16 17:14 Urine Ketones Negative mg/dL (NEGATIVE) 07/11/16 17:14 Urine Blood Negative (NEGATIVE) 07/11/16 17:14 Urine Nitrate Negative (NEGATIVE) 07/11/16 17:14 Urine Bilirubin Negative (NEGATIVE) 07/11/16 17:14 Urine Urobilinogen 0.2-1.0 mg/dL (0.2-1.0) 07/11/16 17:14 Ur Leukocyte Esterase Neg Christina/uL (Negative) 07/11/16 17:14 Urine RBC (Auto) 3 /hpf (0-3) 07/11/16 17:14 Urine Microscopic WBC 1 /hpf (0-5) 07/11/16 17:14 Ur Squamous Epith Cells < 1 /hpf (0-5) 07/11/16 17:14 Hyaline Casts 0-2 /hpf (0-2) 07/11/16 17:14 Discharge Exam - Additional Findings Additional findings: ATTENDING NOTE/ATTESTATION PATIENT SEEN AND EXAMINED. CASE DISCUSSED WITH RESIDENT. AGREE WITH PLAN.
== END 2016-07-15 16:00 | disposition home or self-care (01) | DRG 948 ==
LOC: H.ER 15:15 → H.ERHOLD 19:08 → H.TEL 22:09 → OBSVTOIN 07-12 17:10
PROVIDERS: ADMIT Family Medicine Geriatric Medicine; ATTEND Family Medicine Geriatric Medicine
DX: R60.9 Edema, unspecified (principal); R06.00 Dyspnea, unspecified; I10 Essential (primary) hypertension; W18.30XA Fall on same level, unspecified, initial encounter; I48.2 Chronic atrial fibrillation; M79.604 Pain in right leg; M79.605 Pain in left leg; E78.5 Hyperlipidemia, unspecified; N40.0 Benign prostatic hyperplasia without lower urinary tract symptoms; Z79.01 Long term (current) use of anticoagulants; R26.81 Unsteadiness on feet; F41.9 Anxiety disorder, unspecified; M19.90 Unspecified osteoarthritis, unspecified site; Y92.9 Unspecified place or not applicable

== ENCOUNTER 2016-09-02 05:25 | Observation (INO) | payer MEDICARE, MEDICAID ==
[2016-09-02 05:26] VITALS: BMI 31.8
--- NOTE | 2016-09-02 06:27 | ED PDOC ---
HPI: Hypertension/Hypotension Time Seen by Provider: 09/02/16 05:38 Chief Complaint (Nursing): High Blood Pressure Chief Complaint (Provider): Hypertension History Per: Patient History/Exam Limitations: no limitations Onset/Duration Of Symptoms: Hrs (x2) Current Symptoms Are (Timing): Still Present Associated Symptoms: Dyspnea Additional Complaint(s): 85 year old male presents to ED with elevated blood pressure and SOB x2 hours and has a past medical history of HTN. Patient notes that an acute sense of SOB prompted him to check his blood pressure, which was over 200 systolic. Patient describes the SOB as a suffocating sensation. (-) chest pain, nausea, vomiting, diarrhea, fever, or cough. Notes that he took his morning blood pressure medication but still desired further evaluation, prompting an ED visit. PCP: Farrukh Etienne Past Medical History Reviewed: Historical Data, Nursing Documentation, Vital Signs Vital Signs: Last Vital Signs Temp 98.7 F 09/02/16 05:38 Pulse 56 L 09/02/16 05:38 Resp 18 09/02/16 05:38 BP 192/106 H 09/02/16 05:38 Pulse Ox 98 09/02/16 05:38 - Medical History PMH: Anxiety, Arthritis, Atrial Fibrillation, Back Problems, HTN, Hypercholesterolemia Denies: HIV, Chronic Kidney Disease - Surgical History Surgical History: Back Surgery - Family History Family History: States: Unknown Family Hx - Social History Current smoker - smoking cessation education provided: No Alcohol: None Drugs: Denies - Home Medications Home Medications: Ambulatory Orders Medication Instructions Recorded Pantoprazole [Protonix EC Tab] 40 mg PO DAILY 04/07/14 Sertraline [Zoloft] 100 mg PO DAILY 04/07/14 Tamsulosin HCl [Flomax] 0.4 mg PO DAILY 04/07/14 Aspirin [Ecotrin] 81 mg PO DAILY 09/16/15 Atorvastatin [Lipitor] 20 mg PO HS 09/16/15 Finasteride [Proscar] 5 mg PO DAILY 09/16/15 Gabapentin [Neurontin] 300 mg PO TID 09/16/15 Lisinopril [Zestril] 20 mg PO DAILY 09/16/15 Metoprolol Succinate [Toprol XL] 100 mg PO DAILY 09/16/15 Apixaban [Eliquis] 2.5 mg PO BID #60 tablet 07/22/16 - Allergies Allergies/Adverse Reactions: Allergies Allergy/AdvReac Type Severity Reaction Status Date / Time No Known Allergies Allergy Verified 07/11/16 15:40 Review of Systems ROS Statement: Except As Marked, All Systems Reviewed And Found Negative Constitutional: Positive for: Other (Hypertension). Negative for: Fever Cardiovascular: Negative for: Chest Pain Respiratory: Positive for: Shortness of Breath. Negative for: Cough Gastrointestinal: Negative for: Nausea, Vomiting, Diarrhea Physical Exam - Reviewed Nursing Documentation Reviewed: Yes Vital Signs Reviewed: Yes - Physical Exam Appears: Positive for: Non-toxic, No Acute Distress Head Exam: Positive for: ATRAUMATIC Eye Exam: Positive for: Normal appearance, EOMI, PERRL ENT: Positive for: Normal ENT Inspection Neck: Positive for: Painless ROM, Supple. Negative for: Normal (lipoma on post cervical region for years - 8 cm diameter) Cardiovascular/Chest: Positive for: Regular Rate, Rhythm. Negative for: Murmur Respiratory: Positive for: Normal Breath Sounds. Negative for: Respiratory Distress Gastrointestinal/Abdominal: Positive for: Normal Exam, Soft. Negative for: Tenderness Back: Positive for: Normal Inspection Extremity: Positive for: Normal ROM. Negative for: Deformity Neurologic/Psych: Positive for: Alert, Oriented. Negative for: Motor/Sensory Deficits - Laboratory Results Result Diagrams: 09/02/16 06:15 09/02/16 06:15 - ECG O2 Sat by Pulse Oximetry: 98 (RA) Pulse Ox Interpretation: Normal Medical Decision Making Medical Decision Makin Initial impression: acute HTN and subjective dyspnea Initial plan: * EKG * Labs * Trop I * PTT/PT * CXR Scribe Attestation: Documented by Brittany Crandall acting as a scribe for Óscar Donohue MD. Scribe Attestation: All medical record entries made by the Scribe were at my direction and personally dictated by me. I have reviewed the chart and agree that the record accurately reflects my personal performance of the history, physical exam, medical decision making, and the department course for this patient. I have also personally directed, reviewed, and agree with the discharge instructions and disposition. Disposition - Clinical Impression Clinical Impression: Chest pain - Patient ED Disposition Is Patient to be Admitted: Transfer of Care - Disposition Disposition: Transfer of Care Disposition Time: 07:00 Condition: STABLE Patient Signed Over To: Rox Jaquez Handoff Comments: Pending ED work up
[2016-09-02 06:30] LABS: BASO # 0.1 K/uL (0.0-0.2); BASO % 0.7 % (0.0-2.0); EOS # 0.4 K/uL (0.0-0.7); EOS % 4.4 % (0.0-4.0); HEMOGLOBIN 12.5 g/dL (12.0-18.0); LYMPH # 1.4 K/uL (1.0-4.3); LYMPH % 16.2 % (20.0-40.0); MEAN CELL VOLUME 90.9 fl (80.0-94.0); MEAN CORPUSCULAR HEMOGLOBIN 30.1 pg (27.0-31.0); MEAN CORPUSCULAR HGB CONC 33.1 g/dL (33.0-37.0); MEAN PLATELET VOLUME 9.3 fl (7.2-11.7); MONO # 0.8 K/uL (0.0-0.8); MONO % 9.1 % (0.0-10.0); NEUT # 6.1 K/uL (1.8-7.0); NEUT % 69.6 % (50.0-75.0); RBC 4.17 Mil/uL (4.40-5.90); WHITE BLOOD COUNT 8.7 K/uL (4.8-10.8)
[2016-09-02 06:36] LABS: ALB/GLOB RATIO 1.2 (1.0-2.1); ALBUMIN 3.8 g/dL (3.5-5.0); ALT/SGPT 33 U/L (21-72); AST/SGOT 28 U/L (17-59); BLOOD UREA NITROGEN 23 mg/dl (9-20); CALCIUM 8.8 mg/dL (8.4-10.2); GFR AFRICAN-AMERICAN > 60; GFR NON-AFRICAN AMERICAN > 60
[2016-09-02 06:42] LABS: INR 1.1 (0.9-1.2); PARTIAL THROMBOPLASTIN TIME 32.5 Seconds (25.6-37.1); PROTHROMBIN TIME 12.4 Seconds (9.8-13.1)
[2016-09-02 06:47] LABS: B-TYPE NATRIURETIC PEPTIDE 234 pg/ml (0-900)
--- NOTE | 2016-09-02 09:29 | RAD ---
HISTORY: chest pain COMPARISON: No prior. FINDINGS: LUNGS: The lungs are clear. PLEURA: No significant pleural effusion identified, no pneumothorax apparent. CARDIOVASCULAR: There is mild cardiomegaly. There is unfolding of the aorta. OSSEOUS STRUCTURES: No significant abnormalities. VISUALIZED UPPER ABDOMEN: Normal. OTHER FINDINGS: None. IMPRESSION: No active pulmonary disease.
--- NOTE | 2016-09-02 09:39 | CP.PCM.HP ---
History of Present Illness - History of Present Illness History of Present Illness: 85 y/o M with PMH including HTN, HLD, Afib, BPH and Chronic back pain brought into ED by son after measuring a BP of over 200 systolic at home. Patient denies any associated chest pain, headaches, visual disturbances or focal weakness. He reports taking his medications as prescribed. He has associated lower extremity edema b/l which appears to be chronic. As per patient, he has a baseline of SOB on exertion. Patient denies SOB at rest but has dyspnea after walking from his bedroom to his restroom. An echo performed 6 weeks ago on previous admission reported mild concentric LVH and normal ejection fraction. He does not require assistance when ambulating at home, but uses a rolling walker when leaving his home. 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 PMD: [facility], Dr Alesha Etienne Present on Admission - Present on Admission Any Indicators Present on Admission: No History of DVT/PE: No History of Uncontrolled Diabetes: No Urinary Catheter: No Decubitus Ulcer Present: No Review of Systems - Review of Systems Review of Systems: See HPI - Constitutional Constitutional: absent: Chills, Fever - Cardiovascular Cardiovascular: Dyspnea, Leg Edema. absent: Chest Pain, Chest Pain with Activity, Palpitations - Respiratory Respiratory: absent: Cough, Wheezing, Chest Congestion, Change in Mucous Color - Gastrointestinal Gastrointestinal: absent: Abdominal Pain, Diarrhea, Nausea, Vomiting - Genitourinary Genitourinary: absent: Difficulty Urinating, Dysuria - Musculoskeletal Musculoskeletal: Arthralgias (Left hip) - Neurological Neurological: absent: Confusion, Focal Weakness, Headaches Past Patient History - Past Medical History & Family History Past Medical History?: Yes - Past Social History Smoking Status: Former Smoker Alcohol: None Drugs: Denies Home Situation {Lives}: With Family (With ) Domestic Violence: Negative - CARDIAC Hx Atrial Fibrillation: Yes Hx Hypercholesterolemia: Yes Hx Hypertension: Yes - PULMONARY Hx Respiratory Disorders: No - NEUROLOGICAL Hx Neurological Disorder: No - HEENT Hx HEENT Problems: Yes Hx Cataracts: Yes - RENAL Hx Chronic Kidney Disease: No - ENDOCRINE/METABOLIC Hx Endocrine Disorders: No - HEMATOLOGICAL/ONCOLOGICAL Hx Human Immunodeficiency Virus (HIV): No - INTEGUMENTARY Hx Dermatological Problems: No - MUSCULOSKELETAL/RHEUMATOLOGICAL Hx Arthritis: Yes - GASTROINTESTINAL Hx Gastrointestinal Disorders: No - GENITOURINARY/GYNECOLOGICAL Hx Genitourinary Disorders: Yes Hx Prostate Problems: Yes (BPH) - PSYCHIATRIC Hx Anxiety: Yes - SURGICAL HISTORY Hx Surgeries: Yes - ANESTHESIA Hx Anesthesia: Yes Hx Anesthesia Reactions: No Hx Malignant Hyperthermia: No Meds Allergies/Adverse Reactions: Allergies Allergy/AdvReac Type Severity Reaction Status Date / Time No Known Allergies Allergy Verified 07/11/16 15:40 Physical Exam - Constitutional Appears: Non-toxic, No Acute Distress - Head Exam Head Exam: ATRAUMATIC, NORMAL INSPECTION - Eye Exam Eye Exam: EOMI, PERRL - ENT Exam ENT Exam: Mucous Membranes Moist - Respiratory Exam Respiratory Exam: Decreased Breath Sounds (b/l ), Clear to Auscultation Bilateral. absent: Rhonchi, Wheezes, Respiratory Distress - Cardiovascular Exam Cardiovascular Exam: Irregular Rhythm, +S1, +S2. absent: Tachycardia, Systolic Murmur - GI/Abdominal Exam GI & Abdominal Exam: Normal Bowel Sounds, Soft. absent: Distended, Tenderness - Extremities Exam Extremities exam: Positive for: normal capillary refill, pedal edema (2+). Negative for: calf tenderness Additional comments: Franco tenderness present b/l, which patient states has been chronic - Back Exam Additional comments: Minor echymosis present on left upper back. No signs of sacral ulcers. - Neurological Exam Neurological exam: Alert, Altered, CN II-XII Intact, Oriented x3 Additional comments: Thought process clear, Speach clearly intelligble with no dysarthria. Finger to nose normal. - Psychiatric Exam Psychiatric exam: Normal Affect, Normal Mood - Skin Skin Exam: Dry, Warm Results - Vital Signs Recent Vital Signs: Last Vital Signs Temp 98.7 F 09/02/16 05:38 Pulse 66 09/02/16 06:48 Resp 16 09/02/16 06:48 BP 165/88 H 09/02/16 06:48 Pulse Ox 95 09/02/16 06:48 - Labs Result Diagrams: 09/02/16 06:15 09/02/16 06:15 Assessment & Plan - Assessment and Plan (Free Text) Assessment: 85 y/o M with PMH including HTN, HLD, Afib, BPH and Chronic back pain brought into ED by son after measuring a BP of over 200 systolic at home. Patient was subsequently admitted for hypertensive urgency and to R/O ACS. Plan: Hypertensive Urgency -Initial Systolic BP in 190s-200s range -Patient denies chest pain, headache, visual disturbance or focal weakness -Lisinopril 40mg daily -Metoprolol 100mg PO daily -Patient may have exhausted his supply of HCT 25mg daily (was last given a 90 day supply almost 4 months ago) -Monitor BP Dyspnea, Rule out ACS -Chronic dyspnea on exertion possibly exacerbated by hypertensive urgency -EKG sinus rhythm with no acute ischemic changes -CXR reveals no active pulmonary disease -ProBNP wnl at: 234 -Echo performed on 07/11/16 revealed mild concentric LVH with normal LV EF. Grade -I abnormal relaxation was also detected. -PT consulted -Continue telemetry monitoring Paroxysmal Afib, chronic -Rate controlled -On Metoprolol 100mg PO daily -On Eliquis 2.5mg PO BID for anticoagulation Hyperlipidemia -Well controlled -Last lipid panel total chol:138, LDL: 72, HDL: 40 -Continue Atorvastatin 20mg PO QHS BPH -Asymptomatic -Continue home Finasteride 5mg PO daily and Tamsulosin 0.4mg PO daily Chronic back pain -Gabapentin 300mg PO TID DVT Prophylaxis -On Eliquis -SCDs
[2016-09-02] MEDS ORDERED: Pantoprazole 40 mg EC Tab PO SCH (11:30)
[2016-09-02] MEDS: Metoprolol Succinate 100 mg XL Tab PO SCH (12:17)
--- NOTE | 2016-09-02 18:23 | CARD ---
APPROVED REPORT EKG Measurement Heart [id number] <Conclusion> Sinus rhythm with premature supraventricular complexes Otherwise normal ECG
[2016-09-03] MEDS ORDERED: Labetalol 5 mg/ml Inj 20ML IVP STA (00:23)
[2016-09-03] MEDS ORDERED: Labetalol 5mg/ml (4ml) IVP STA (00:30)
[2016-09-03] MEDS: Metoprolol Succinate 100 mg XL Tab PO SCH (08:46)
[2016-09-03] MEDS ORDERED: Lidocaine 5% Patch TD SCH (09:00)
[2016-09-03 12:07] VITALS: BP 154/85; RESP 18; TEMP 97.6; O2SAT 98
--- NOTE | 2016-09-03 13:25 | CP.PCM.DIS ---
Provider - Provider Date of Admission: 09/02/16 08:59 Attending physician: Kallie Turcios MD Primary care physician: Farrukh Etienne MD Time Spent in preparation of Discharge (in minutes): 30 Diagnosis - Discharge Diagnosis (1) Hypertensive urgency Status: Resolved (2) Paroxysmal a-fib Status: Chronic (3) BPH (benign prostatic hyperplasia) Status: Chronic (4) Hypertension Status: Chronic Hospital Course - Lab Results Lab Results: Most Recent Lab Values WBC 8.7 K/uL (4.8-10.8) 09/02/16 06:15 RBC 4.17 Mil/uL (4.40-5.90) L 09/02/16 06:15 Hgb 12.5 g/dL (12.0-18.0) D 09/02/16 06:15 Hct 37.9 % (35.0-51.0) 09/02/16 06:15 MCV 90.9 fl (80.0-94.0) 09/02/16 06:15 MCH 30.1 pg (27.0-31.0) 09/02/16 06:15 MCHC 33.1 g/dL (33.0-37.0) 09/02/16 06:15 RDW 15.0 % (11.5-14.5) H 09/02/16 06:15 Plt Count 199 K/uL (130-400) 09/02/16 06:15 MPV 9.3 fl (7.2-11.7) 09/02/16 06:15 Neut % (Auto) 69.6 % (50.0-75.0) 09/02/16 06:15 Lymph % (Auto) 16.2 % (20.0-40.0) L 09/02/16 06:15 Sully % (Auto) 9.1 % (0.0-10.0) 09/02/16 06:15 Eos % (Auto) 4.4 % (0.0-4.0) H 09/02/16 06:15 Baso % (Auto) 0.7 % (0.0-2.0) 09/02/16 06:15 Neut # 6.1 K/uL (1.8-7.0) 09/02/16 06:15 Lymph # 1.4 K/uL (1.0-4.3) 09/02/16 06:15 Sully # 0.8 K/uL (0.0-0.8) 09/02/16 06:15 Eos # 0.4 K/uL (0.0-0.7) 09/02/16 06:15 Baso # 0.1 K/uL (0.0-0.2) 09/02/16 06:15 PT 12.4 Seconds (9.8-13.1) 09/02/16 06:15 INR 1.1 (0.9-1.2) 09/02/16 06:15 APTT 32.5 Seconds (25.6-37.1) 09/02/16 06:15 Sodium 139 mmol/l (132-148) 09/02/16 06:15 Potassium 4.0 MMOL/L (3.6-5.0) 09/02/16 06:15 Chloride 106 mmol/L (98-107) 09/02/16 06:15 Carbon Dioxide 24 mmol/L (22-30) 09/02/16 06:15 Anion Gap 13 (10-20) 09/02/16 06:15 BUN 23 mg/dl (9-20) H 09/02/16 06:15 Creatinine 0.8 mg/dL (0.8-1.5) 09/02/16 06:15 Est GFR ( Amer) > 60 09/02/16 06:15 Est GFR (Non-Af Amer) > 60 09/02/16 06:15 Random Glucose 102 mg/dL (75-110) 09/02/16 06:15 Calcium 8.8 mg/dL (8.4-10.2) 09/02/16 06:15 Total Bilirubin 0.4 mg/dl (0.2-1.3) 09/02/16 06:15 AST 28 U/L (17-59) 09/02/16 06:15 ALT 33 U/L (21-72) 09/02/16 06:15 Alkaline Phosphatase 83 U/L (38-126) 09/02/16 06:15 Troponin I < 0.0120 ng/mL (0.00-0.120) 09/02/16 18:00 NT-Pro-B Natriuret Pep 234 pg/ml (0-900) 09/02/16 06:15 Total Protein 7.0 G/DL (6.3-8.2) 09/02/16 06:15 Albumin 3.8 g/dL (3.5-5.0) 09/02/16 06:15 Globulin 3.2 gm/dL (2.2-3.9) 09/02/16 06:15 Albumin/Globulin Ratio 1.2 (1.0-2.1) 09/02/16 06:15 - Hospital Course Hospital Course: 85 y/o M with PMH including HTN, HLD, Afib, BPH and Chronic back pain brought into ED by son after measuring a BP of over 200 systolic at home. Patient was subsequently admitted for hypertensive urgency and to R/O ACS. During admission , HCT 25mg PO was restarted and patient's blood pressure improved. Serial troponins were within normal limtts and EKG revealed no acute changes, so ACS was ruled out. PT evaluated patient and recommended d/c home with transfer tub chair Rx. Patient remained stable and was discharged home with follow up to PCP. Discharge Exam - Head Exam Head Exam: ATRAUMATIC, NORMAL INSPECTION, NORMOCEPHALIC - Eye Exam Eye Exam: EOMI, PERRL - ENT Exam ENT Exam: Mucous Membranes Moist - Respiratory Exam Respiratory Exam: Clear to PA & Lateral, UNREMARKABLE. absent: Rhonchi, Wheezes , Respiratory Distress - Cardiovascular Exam Cardiovascular Exam: Irregular Rhythm, +S1, +S2. absent: Tachycardia - GI/Abdominal Exam GI & Abdominal Exam: Soft. absent: Distended, Rebound, Tenderness - Extremities Exam Extremities exam: pedal edema (2+) Additional comments: Chronic preciado tenderness b/l. No calf tenderness. - Neurological Exam Neurological exam: Alert, Oriented x3 - Psychiatric Exam Psychiatric exam: Normal Affect, Normal Mood - Skin Skin Exam: Dry, Warm Discharge Plan - Discharge Medications Prescriptions: hydroCHLOROthiazide [Hydrodiuril] 25 mg PO DAILY #30 tab - Follow Up Plan Condition: STABLE Disposition: HOME/ ROUTINE Instructions: Hypertension (DC) Additional Instructions: Follow up with Dr Etienne after discharge Instructed on importance of taking BP medications as prescribed Monitor BP at home Discussed home safety including transfer tub chair, Rx given ED precautions given Referrals: Farrukh Etienne MD [Primary Care Provider] -
[2016-09-03 13:39] VITALS: PULSE 72
== END 2016-09-03 15:13 | disposition home or self-care (01) ==
LOC: H.ER 05:25 → H.ERHOLD 08:59 → H.TEL 14:33
PROVIDERS: ADMIT Family Medicine Geriatric Medicine; ATTEND Family Medicine Geriatric Medicine
DX: I16.0 Hypertensive urgency (principal); E78.00 Pure hypercholesterolemia, unspecified; F41.9 Anxiety disorder, unspecified; M19.90 Unspecified osteoarthritis, unspecified site; E78.5 Hyperlipidemia, unspecified; I10 Essential (primary) hypertension; I48.0 Paroxysmal atrial fibrillation; N40.0 Benign prostatic hyperplasia without lower urinary tract symptoms; Z79.01 Long term (current) use of anticoagulants; Z79.82 Long term (current) use of aspirin; I95.9 Hypotension, unspecified; R06.02 Shortness of breath; R07.9 Chest pain, unspecified; R60.0 Localized edema
CPT/HCPCS: 71010; 80053; 83880; 84484; 85025; 85610; 85730; 93005; 97161; 99285; G0378; G8978; G8979; G8980

== ENCOUNTER 2016-09-05 20:55 | Inpatient (IN) | payer MEDICARE, MEDICAID ==
[2016-09-05 20:56] VITALS: BMI 31.8
[2016-09-05] MEDS ORDERED: Sodium Chloride 0.9% 1,000 ML IV STA (21:15)
[2016-09-05 21:28] LABS: ABG ALLEN TEST YES; ARTERIAL BLOOD GAS HCO3 24.3 mmol/L (21-28); ARTERIAL BLOOD GAS PH 7.44 (7.35-7.45); ARTERIAL BLOOD GAS PO2 63 mm/Hg (80-100)
[2016-09-05 21:33] LABS: BASO % 0.3 % (0.0-2.0); EOS % 0.1 % (0.0-4.0); HEMATOCRIT 39.7 % (35.0-51.0); LYMPH # 0.7 K/uL (1.0-4.3); LYMPH % 4.1 % (20.0-40.0); MEAN CELL VOLUME 91.3 fl (80.0-94.0); MEAN CORPUSCULAR HEMOGLOBIN 29.7 pg (27.0-31.0); MEAN CORPUSCULAR HGB CONC 32.6 g/dL (33.0-37.0); MEAN PLATELET VOLUME 9.4 fl (7.2-11.7); MONO # 0.9 K/uL (0.0-0.8); MONO % 5.8 % (0.0-10.0); NEUT # 14.7 K/uL (1.8-7.0); NEUT % 89.7 % (50.0-75.0); PLATELET COUNT 209 K/uL (130-400); RED CELL DISTRIBUTION WIDTH 15.8 % (11.5-14.5); WHITE BLOOD COUNT 16.4 K/uL (4.8-10.8)
[2016-09-05 21:54] LABS: ALB/GLOB RATIO 1.2 (1.0-2.1); ALKALINE PHOSPHATASE 93 U/L (38-126); ALT/SGPT 36 U/L (21-72); AST/SGOT 26 U/L (17-59); BILIRUBIN,TOTAL 0.7 mg/dl (0.2-1.3); BLOOD UREA NITROGEN 28 mg/dl (9-20); CARBON DIOXIDE 25 mmol/L (22-30); CHLORIDE 102 mmol/L (98-107); GFR AFRICAN-AMERICAN > 60; GLUCOSE,RANDOM 111 mg/dL (75-110); LIPASE 73 U/L (23-300); MAGNESIUM 1.8 MG/DL (1.6-2.3); PHOSPHOROUS 2.1 mg/dl (2.5-4.5); POTASSIUM 4.1 MMOL/L (3.6-5.0); SODIUM 137 mmol/l (132-148); TOTAL PROTEIN 7.9 G/DL (6.3-8.2)
[2016-09-05] MEDS ORDERED: levoFLOXacin 750 mg in D5W 150 ML BAG IVPB STA (21:57)
[2016-09-05] MEDS ORDERED: Cefepime 2 GM in Sodium Chloride 0.9% 100 ML IVPB STA (21:57)
[2016-09-05 22:04] LABS: PARTIAL THROMBOPLASTIN TIME 29.6 Seconds (25.6-37.1)
--- NOTE | 2016-09-05 22:20 | ED PDOC ---
HPI: SOB/CHF/COPD Time Seen by Provider: 09/05/16 21:03 Chief Complaint (Nursing): Fever Chief Complaint (Provider): fever History/Exam Limitations: clinical condition Associated Symptoms: Fever Additional Complaint(s): History obtained from son, who had obtained information from his sister Pt had fever today with shortness of breath as well as progressive severe weakness for 1 day. Past Medical History Reviewed: Historical Data, Nursing Documentation, Vital Signs Vital Signs: Last Vital Signs Temp 100.8 F H 09/05/16 22:12 Pulse 108 H 09/05/16 22:12 Resp 23 09/05/16 22:12 BP 134/68 09/05/16 22:12 Pulse Ox 95 09/05/16 22:23 - Medical History PMH: Anxiety, Arthritis, Atrial Fibrillation, Back Problems, HTN, Hypercholesterolemia Denies: HIV, Chronic Kidney Disease - Surgical History Surgical History: Back Surgery - Family History Family History: States: Unknown Family Hx - Home Medications Home Medications: Ambulatory Orders Medication Instructions Recorded Pantoprazole [Protonix EC Tab] 40 mg PO DAILY 04/07/14 Sertraline [Zoloft] 100 mg PO DAILY 04/07/14 Tamsulosin HCl [Flomax] 0.4 mg PO DAILY 04/07/14 Aspirin [Ecotrin] 81 mg PO DAILY 09/16/15 Atorvastatin [Lipitor] 20 mg PO HS 09/16/15 Finasteride [Proscar] 5 mg PO DAILY 09/16/15 Gabapentin [Neurontin] 300 mg PO TID 09/16/15 Lisinopril [Zestril] 20 mg PO DAILY 09/16/15 Metoprolol Succinate [Toprol XL] 100 mg PO DAILY 09/16/15 Apixaban [Eliquis] 2.5 mg PO BID #60 tablet 09/18/15 hydroCHLOROthiazide [Hydrodiuril] 25 mg PO DAILY #30 tab 09/03/16 - Allergies Allergies/Adverse Reactions: Allergies Allergy/AdvReac Type Severity Reaction Status Date / Time No Known Allergies Allergy Verified 07/11/16 15:40 Review of Systems Review Of Systems: ROS cannot be obtained secondary to pt's inabilty to answer questions. Physical Exam - Reviewed Nursing Documentation Reviewed: Yes Vital Signs Reviewed: Yes - Physical Exam Appears: Positive for: Uncomfortable, In Acute Distress (appear chronically ill) Head Exam: Positive for: ATRAUMATIC, NORMOCEPHALIC Skin: Positive for: Warm, Dry, Pallor Eye Exam: Positive for: EOMI, PERRL ENT: Positive for: Pharynx Is (clear), Other (dry muc membranes) Neck: Positive for: Painless ROM, Supple Cardiovascular/Chest: Positive for: Tachycardia. Negative for: Edema, Murmur Respiratory: Positive for: Rhonchi, Respiratory Distress, Other (Tachypnea). Negative for: Wheezing Gastrointestinal/Abdominal: Positive for: Soft. Negative for: Tenderness Back: Positive for: Normal Inspection. Negative for: Vertebral Tenderness Extremity: Positive for: Normal ROM. Negative for: Pedal Edema Lymphatic: Negative for: Adenopathy Neurologic/Psych: Positive for: Alert (but confused). Negative for: Oriented, Motor/Sensory Deficits - Laboratory Results Result Diagrams: 09/05/16 21:10 09/05/16 21:10 - ECG ECG Rhythm: Positive for: Normal QRS, Normal ST Segment, Sinus Rhythm O2 Sat by Pulse Oximetry: 95 Pulse Ox Interpretation: Normal - Radiology X-Ray: Interpreted by Mt X-Ray Interpretation: Infiltrates (LLL infiltrate) - Progress ED Course And Treament: Labs demonstrate leukocytosis and dehydration (elevated BUN) Re-evaluation Time: 21:00 Condition: Improving,but remains with symptoms - Critical Care Total Time (In Min): 30 Comments: Pt with signs of sepsis, requiring immediately IVF and management. Review of previous charts for comparison. Documented Critical Care: Time excludes all time spent performint seperately billable procedures Medical Decision Making Medical Decision Making: Clinical impression: Febrile illness, sepsis, LLL infiltrate, dehydration Pt needs hospitalization for IV antibiotics and further management. With CHF fluids have to be given cautiously. ELISABETH Baumann FP resident for [facility]. ELISABETH family findings and plan of care. Disposition - Clinical Impression Clinical Impression: Pneumonia, Hypertension Counseled Patient/Family Regarding: Studies Performed, Diagnosis - Disposition Disposition Time: 22:00 Condition: FAIR - Pt Status Changed To: Hospital Disposition Of: Inpatient - Admit Certification Admit to Inpatient:: After my assessment, the patient will require hospitalization for at least two midnights. This is because of the severity of symptoms shown, intensity of services needed, and/or the medical risk in this patient being treated as an outpatient. - POA Present On Arrival: None
[2016-09-05 23:15] LABS: BASOPHIL 1 % (0-2); LARGE PLATELETS PRESENT; NEUTROPHIL 88 % (42-75); TOTAL CELLS COUNTED 100
--- NOTE | 2016-09-06 00:09 | CP.PCM.HP ---
History of Present Illness - History of Present Illness History of Present Illness: 85 yo M w PMHx of HTN, Afib, HLD, and chronic back pain is admitted due to fever and shortness of breath. He and his son state that he's had a one day h/o subjective fever and SOB and mildly diffuse pain in his limbs. He denies nausea , vomiting, diarrhea, ear pain, throat pain, chest pain, palpitations, dyspnea, or rhinorrhea. His baseline is he does not usually need walking assistance at home, however a rolling walker is used when he is out. He lives with his and receives manager home healthcare assistance 20 hours per week. His son, present at bedside , showed us 3 scripts that were not filled from previous discharge, asking if they needed to be or not: Hydrochlorothiazide, Shower Bench, and Salonpas. Otherwise, he denies headaches, dizziness, LOC, abdominal pain, hematuria, or dysuria. PMD: [place] PMHx: HTN, 4 cervical disc herniations, BPH, anxiety, Afib, HLD PSHx: Varicose Vein ablation, Herniated Cervical Disc Surgeries x 4 NKDA Home Meds: Eliquis 2.5mg BID, ASA 81mg QD, Lipitor 20mg QD, Finasteride 5mg QD, Flomax 0.4mg QD, Gabapentin 300mg TID, HCTZ 25mg QD, Lisinopril 20mg QD, Toprol XL 100mg QD, Protonix 40mg QD, Zoloft 100mg QD SHx: 1 PPD x 30 years but quit 40 yrs ago, etoh abuse but quit 'many' years prior, denies illicit drugs ED Course: -CBC -CMP -PT/INR/PTT -Troponin x1 -Lipase -ABG -UA -Flu -BCx -UCx -CXR -Tylenol 975mg PO x1 -Levofloxacin 750mg IVPB x1 -Cefepime 2gm IVPB x1 -NS 1L Bolus x1 Present on Admission - Present on Admission Any Indicators Present on Admission: No History of DVT/PE: No History of Uncontrolled Diabetes: No Urinary Catheter: No Decubitus Ulcer Present: No Review of Systems - Review of Systems All systems: reviewed and no additional remarkable complaints except (see HPI) Past Patient History - Past Medical History & Family History Past Medical History?: Yes - Past Social History Smoking Status: Former Smoker - CARDIAC Hx Atrial Fibrillation: Yes Hx Hypercholesterolemia: Yes Hx Hypertension: Yes - PULMONARY Hx Respiratory Disorders: No - NEUROLOGICAL Hx Neurological Disorder: No - HEENT Hx HEENT Problems: Yes Hx Cataracts: Yes - RENAL Hx Chronic Kidney Disease: No - ENDOCRINE/METABOLIC Hx Endocrine Disorders: No - HEMATOLOGICAL/ONCOLOGICAL Hx Human Immunodeficiency Virus (HIV): No - INTEGUMENTARY Hx Dermatological Problems: No - MUSCULOSKELETAL/RHEUMATOLOGICAL Hx Arthritis: Yes - GASTROINTESTINAL Hx Gastrointestinal Disorders: No - GENITOURINARY/GYNECOLOGICAL Hx Genitourinary Disorders: Yes Hx Prostate Problems: Yes (BPH) - PSYCHIATRIC Hx Anxiety: Yes - SURGICAL HISTORY Hx Surgeries: Yes - ANESTHESIA Hx Anesthesia: Yes Hx Anesthesia Reactions: No Hx Malignant Hyperthermia: No Meds Allergies/Adverse Reactions: Allergies Allergy/AdvReac Type Severity Reaction Status Date / Time No Known Allergies Allergy Verified 07/11/16 15:40 Physical Exam - Constitutional Appears: Non-toxic, In Acute Distress, Chronically Ill - Head Exam Head Exam: ATRAUMATIC, NORMOCEPHALIC - Eye Exam Eye Exam: EOMI Pupil Exam: PERRL - ENT Exam ENT Exam: Mucous Membranes Dry - Neck Exam Neck exam: Positive for: Full Rom - Respiratory Exam Respiratory Exam: Rhonchi, Wheezes (minimally). absent: Accessory Muscle Use, Clear to Auscultation Bilateral (mildly middle/lower lobes), Respiratory Distress - Cardiovascular Exam Cardiovascular Exam: Tachycardia - GI/Abdominal Exam GI & Abdominal Exam: Soft. absent: Distended, Guarding, Tenderness - Extremities Exam Extremities exam: Negative for: calf tenderness, pedal edema - Back Exam Back exam: absent: vertebral tenderness - Neurological Exam Neurological exam: Alert - Skin Skin Exam: Dry, Normal Color, Warm Results - Vital Signs Recent Vital Signs: Last Vital Signs Temp 100.8 F H 09/05/16 22:12 Pulse 85 09/05/16 23:51 Resp 20 09/05/16 23:51 BP 125/52 L 09/05/16 23:51 Pulse Ox 95 09/06/16 00:02 - Labs Result Diagrams: 09/05/16 21:10 09/05/16 21:10 Assessment & Plan - Assessment and Plan (Free Text) Plan: 85 yo M w PMHx of HTN, Afib, HLD, and chronic back pain is admitted due to fever and shortness of breath 1) Pneumonia -Hospital Acquired; not Septic -WBC: 16.4 -Initial 100.8F, did respond to Tylenol -Lactate 0.8 -Cefepime 2gm IVPB x1 [ED] -Levofloxacin 750mg IVPB x1 [ED] -Tylenol 650mg PO Q6H PRN Fever -Cefepime 2g Q8H IVPB -f/u Temps, Vitals -f/u CXR official report -f/u BNP -f/u Procalcitonin -f/u CBC, BMP -f/u BCx -f/u UCx 2) HTN -Controlled, 128/76 -Echo performed on 07/11/16 revealed mild concentric LVH with normal LV EF. Grade -I abnormal relaxation was also detected. -EKG sinus rhythm with no acute ischemic changes -Lisinopril 40mg Daily (Home Med) -Metoprolol 100mg PO Daily (Home Med) -Hydrochlorothiazide 25mg PO Daily (Home Med) -f/u BPs 3) Paroxysmal Afib, chronic -Rate controlled -Metoprolol 100mg PO daily (Home Med) -Eliquis 2.5mg PO BID for anticoagulation (Home Med) 4) Hyperlipidemia -Well controlled -Last lipid panel total chol:138, LDL: 72, HDL: 40 -Continue Atorvastatin 20mg PO QHS (Home Med) 5) BPH -Asymptomatic -Finasteride 5mg PO Daily (Home Med) -Tamsulosin 0.4mg PO Daily (Home Med) 6) Chronic back pain -Gabapentin 300mg PO TID (Home Med) 7) DVT Prophylaxis -Eliquis 2.5mg PO BID for anticoagulation (Home Med) -SCDs
[2016-09-06 00:11] LABS: RBC URINE 1 /hpf (0-3); URINE BILIRUBIN NEGATIVE (NEGATIVE); URINE BLOOD NEGATIVE (NEGATIVE); URINE COLOR YELLOW (YELLOW); URINE GLUCOSE (UA) NEG (Normal); URINE KETONE NEGATIVE (NEGATIVE); URINE LEUKOCYTE ESTERASE NEG Leu/uL (Negative); URINE PROTEIN 100 mg/dL (NEGATIVE); URINE UROBILINOGEN 0.2-1.0 mg/dL (0.2-1.0); WBC URINE 3 /hpf (0-5)
[2016-09-06] MEDS: Cefepime 2 GM in Sodium Chloride 0.9% 100 ML IVPB SCH ×3 (05:31→21:16)
[2016-09-06 07:09] LABS: HEMATOCRIT 39.4 % (35.0-51.0); MEAN CORPUSCULAR HEMOGLOBIN 29.9 pg (27.0-31.0); MEAN CORPUSCULAR HGB CONC 32.5 g/dL (33.0-37.0); RED CELL DISTRIBUTION WIDTH 15.9 % (11.5-14.5); WHITE BLOOD COUNT 13.9 K/uL (4.8-10.8)
[2016-09-06 07:15] LABS: BLOOD UREA NITROGEN 23 mg/dl (9-20); CALCIUM 8.6 mg/dL (8.4-10.2); CARBON DIOXIDE 27 mmol/L (22-30); CHLORIDE 103 mmol/L (98-107); GFR AFRICAN-AMERICAN > 60; GLUCOSE,RANDOM 109 mg/dL (75-110); POTASSIUM 4.1 MMOL/L (3.6-5.0); SODIUM 139 mmol/l (132-148)
[2016-09-06] MEDS: Pantoprazole 40 mg EC Tab PO SCH (08:32)
--- NOTE | 2016-09-06 08:32 | CARD ---
APPROVED REPORT EKG Measurement Heart [id number] <Conclusion> Sinus rhythm with marked sinus arrhythmia Otherwise normal ECG
[2016-09-06] MEDS: Metoprolol Succinate 100 mg XL Tab PO SCH (08:33)
[2016-09-06] MEDS: Nasal Spray(Ocean spray) NAS PRN ×3 (08:35→17:00)
[2016-09-06] MEDS ORDERED: LISINOPRIL 20 MG PO SCH (09:00)
--- NOTE | 2016-09-06 10:48 | RAD ---
HISTORY: Shortness of breath. COMPARISON: 04/08/2014 and 09/02/2016. FINDINGS: LUNGS: No active pulmonary disease. PLEURA: No significant pleural effusion identified, no pneumothorax apparent. CARDIOVASCULAR: Cardiomegaly. No evidence of acute, significant cardiovascular disease. OSSEOUS STRUCTURES: No significant abnormalities. VISUALIZED UPPER ABDOMEN: Stable appearance, configuration right clavicular fracture. OTHER FINDINGS: None. IMPRESSION: No active disease. No significant interval change compared to the prior examination(s).
--- NOTE | 2016-09-06 13:32 | CP.PCM.CON ---
History of Present Illness - History of Present Illness History of Present Illness: Infectious Disease Consultation Note- asked to see this patient at the request of family practice team for Pneumonia. HPI- patient is a pleasant 85 year old amle with pmh of HTN, A.Fib, HLD, chronic back pain who was admitted for fever and sob. asper pt. he was having progressive son and subjective fevers at home but he states he feels much better today. He denies any cough, denies any chest pain, denies any recent travel, denies any sick contacts. he also c/o small pimple /mole like lesions that have developed on his feet and they bleed and he has self medicated with an ointment ( purple color to help dry them out). He denies any injury to the feet or legs, denies any abd. pain, denies any dysurea, denies any diarrhea, denies any ARCE. PMHx: HTN, 4 cervical disc herniations, BPH, anxiety, Afib, HLD PSHx: Varicose Vein ablation, Herniated Cervical Disc Surgeries x 4 NKDA Home Meds: Eliquis 2.5mg BID, ASA 81mg QD, Lipitor 20mg QD, Finasteride 5mg QD, Flomax 0.4mg QD, Gabapentin 300mg TID, HCTZ 25mg QD, Lisinopril 20mg QD, Toprol XL 100mg QD, Protonix 40mg QD, Zoloft 100mg QD SHx: 1 PPD x 30 years but quit 40 yrs ago, etoh abuse but quit 'many' years prior, denies illicit dr Review of Systems - Review of Systems Review of Systems: ROS- was having progressive son and subjective fevers at home but he states he feels much better today. He denies any cough, denies any chest pain, denies any recent travel, denies any sick contacts. he also c/o small pimple /mole like lesions that have developed on his feet and they bleed and he has self medicated with an ointment ( purple color to help dry them out). He denies any injury to the feet or legs, denies any abd. pain, denies any dysurea, denies any diarrhea, denies any ARCE. Past Patient History - Past Medical History & Family History Past Medical History?: Yes - Past Social History Smoking Status: Former Smoker Alcohol: None Drugs: Denies Home Situation {Lives}: With Family - CARDIAC Hx Atrial Fibrillation: Yes Hx Hypercholesterolemia: Yes Hx Hypertension: Yes - PULMONARY Hx Respiratory Disorders: No - NEUROLOGICAL Hx Neurological Disorder: No - HEENT Hx HEENT Problems: Yes Hx Cataracts: Yes - RENAL Hx Chronic Kidney Disease: No - ENDOCRINE/METABOLIC Hx Endocrine Disorders: No - HEMATOLOGICAL/ONCOLOGICAL Hx Blood Disorders: No - INTEGUMENTARY Hx Dermatological Problems: No - MUSCULOSKELETAL/RHEUMATOLOGICAL Hx Arthritis: Yes - GASTROINTESTINAL Hx Gastrointestinal Disorders: No - GENITOURINARY/GYNECOLOGICAL Hx Genitourinary Disorders: Yes Hx Prostate Problems: Yes (BPH) - PSYCHIATRIC Hx Anxiety: Yes - SURGICAL HISTORY Hx Surgeries: Yes - ANESTHESIA Hx Anesthesia: Yes Hx Anesthesia Reactions: No Hx Malignant Hyperthermia: No Meds Allergies/Adverse Reactions: Allergies Allergy/AdvReac Type Severity Reaction Status Date / Time No Known Allergies Allergy Verified 07/11/16 15:40 - Medications Medications: Current Medications Acetaminophen (Tylenol 325mg Tab) 650 mg PO Q6 PRN PRN Reason: Fever >100.4 F Acetaminophen (Tylenol 325mg Tab) 650 mg PO Q6 PRN PRN Reason: Pain, Mild (1-3) Apixaban (Eliquis) 2.5 mg PO BID [facility] PRN Reason: Protocol Last Admin: 09/06/16 11:55 Dose: 2.5 mg Aspirin (Ecotrin) 81 mg PO DAILY [facility] Last Admin: 09/06/16 08:31 Dose: 81 mg Atorvastatin Calcium (Lipitor) 20 mg PO HS [facility] Finasteride (Proscar) 5 mg PO DAILY [facility] Last Admin: 09/06/16 08:32 Dose: 5 mg Gabapentin (Neurontin) 300 mg PO TID [facility] Last Admin: 09/06/16 12:18 Dose: 300 mg Hydrochlorothiazide (Hydrodiuril) 25 mg PO DAILY [facility] Last Admin: 09/06/16 08:32 Dose: 25 mg Cefepime HCl 2 gm/ Sodium (Chloride) 100 mls @ 100 mls/hr IVPB Q8H [facility] Last Admin: 09/06/16 13:01 Dose: 100 mls/hr Lisinopril (Zestril) 20 mg PO DAILY [facility] Last Admin: 09/06/16 08:34 Dose: 20 mg Loratadine (Claritin) 10 mg PO DAILY [facility] Last Admin: 09/06/16 08:30 Dose: 10 mg Metoprolol Succinate (Toprol Xl) 100 mg PO DAILY [facility] Last Admin: 09/06/16 08:33 Dose: 100 mg Oxymetazoline HCl (Nasal Decongestant 15 Ml) 1 spr NS Q12 PRN PRN Reason: Nasal congestion Last Admin: 09/06/16 10:18 Dose: 1 spr Pantoprazole Sodium (Protonix Ec Tab) 40 mg PO DAILY [facility] Last Admin: 09/06/16 08:32 Dose: 40 mg Sertraline HCl (Zoloft) 100 mg PO DAILY [facility] Last Admin: 09/06/16 08:34 Dose: 100 mg Sodium Chloride ([place] Nasal [place]) 2 sprays PB Q4 PRN PRN Reason: Nasal congestion Last Admin: 09/06/16 13:00 Dose: 1 spr Tamsulosin HCl (Flomax) 0.4 mg PO DAILY [facility] Last Admin: 09/06/16 08:32 Dose: 0.4 mg Physical Exam - Constitutional Appears: No Acute Distress - Head Exam Head Exam: ATRAUMATIC - Eye Exam Eye Exam: EOMI, PERRL - ENT Exam ENT Exam: Normal Oropharynx - Respiratory Exam Respiratory Exam: NORMAL BREATHING PATTERN Additional comments: good breath sounds b/l no wheezing no rhonchi - Cardiovascular Exam Additional comments: irregularly irregular - GI/Abdominal Exam GI & Abdominal Exam: Normal Bowel Sounds, Soft Additional comments: NT, ND - Extremities Exam Additional comments: 2+ pitting edema b/l LE, LLE with erythema from above ankle to mid calf region left achile area with small papule covered with purple ink/ointment no d/c no open wounds right lateral feet 2 small papules agian covered with purple ink/ointment , no active discharge, no open wounds - Neurological Exam Neurological exam: Alert, Oriented x3 Results - Vital Signs Recent Vital Signs: Last Vital Signs Temp 98.9 F 09/06/16 13:00 Pulse 80 09/06/16 13:00 Resp 18 09/06/16 13:00 BP 125/71 09/06/16 13:00 Pulse Ox 95 09/06/16 13:00 - Labs Result Diagrams: 09/06/16 05:00 09/06/16 05:00 Labs: Laboratory Results - last 24 hr 09/05/16 09/06/16 09/06/16 23:50 05:00 05:00 WBC 13.9 H RBC 4.28 L Hgb 12.8 Hct 39.4 MCV 92.0 MCH 29.9 MCHC 32.5 L RDW 15.9 H Plt Count 199 Sodium 139 Potassium 4.1 Chloride 103 Carbon Dioxide 27 Anion Gap 13 BUN 23 H Creatinine 0.9 Est GFR ( Amer) > 60 Est GFR (Non-Af Amer) > 60 Random Glucose 109 Calcium 8.6 Troponin I < 0.0120 NT-Pro-B Natriuret Pep 589 Urine Color Yellow Urine Clarity Clear Urine pH 6.0 Ur Specific [place] 1.018 Urine Protein 100 Urine Glucose (UA) Neg Urine Ketones Negative Urine Blood Negative Urine Nitrate Negative Urine Bilirubin Negative Urine Urobilinogen 0.2-1.0 Ur Leukocyte Esterase Neg Urine RBC (Auto) 1 Urine Microscopic WBC 3 Ur Squamous Epith Cells < 1 Accession No. : [id number] Patient Name / ID : ZITA LINARES / [id number] Exam Date : 09/05/2016 21:39:30 ( Approved ) Study Comment : Sex / Age : M / 85Y Creator : Michael Miles MD Dictator : Michael Miles MD Broadcast Field Supervisor : Hospitality Host : Michael Miles MD Approver2 : Report Date : 09/06/2016 10:46:26 My Comment : HISTORY: Shortness of breath. COMPARISON: 04/08/2014 and 09/02/2016. FINDINGS: LUNGS: No active pulmonary disease. PLEURA: No significant pleural effusion identified, no pneumothorax apparent. CARDIOVASCULAR: Cardiomegaly. No evidence of acute, significant cardiovascular disease. OSSEOUS STRUCTURES: No significant abnormalities. VISUALIZED UPPER ABDOMEN: Stable appearance, configuration right clavicular fracture. OTHER FINDINGS: None. IMPRESSION: No active disease. No significant interval change compared to the prior examination(s). Assessment & Plan (1) SIRS (systemic inflammatory response syndrome) Status: Acute (2) Leukocytosis Status: Acute (3) Lower extremity edema Status: Acute - Assessment and Plan (Free Text) Assessment: A/P- 85 year old male with multiple medical conditions admitted witg fever , sob and found to have leukocytosis. The etiology of his SIRS not entirely clear at this time since his CXR is negative as per radiologist' reading . his LLE erythema and ? cellulitis could also be a source. UA-is negative and hence source unlikely. plan- advise to check blood cx x 2. may need to have chest CT for better evaluation f the lung. check urine legionella and mycoplasma serologies as well. advise to continue with IV cefepime and would also advise to add IV vancomycin as well to cover for LLE ? cellullitis. advise to also get derm consult for further eval of the bluih papaules on b/l feet and possible punch BX to r/o any malignancy. check sputum cx as well. Thank you for allowing me to take art in the care of this patient. Will f/u while inpatient.
[2016-09-07] MEDS: Cefepime 2 GM in Sodium Chloride 0.9% 100 ML IVPB SCH ×3 (05:47→21:58)
[2016-09-07 07:12] LABS: BASO % 0.3 % (0.0-2.0); EOS # 0.1 K/uL (0.0-0.7); EOS % 1.1 % (0.0-4.0); HEMATOCRIT 36.6 % (35.0-51.0); LYMPH # 1.2 K/uL (1.0-4.3); LYMPH % 10.8 % (20.0-40.0); MEAN CELL VOLUME 90.8 fl (80.0-94.0); MEAN CORPUSCULAR HEMOGLOBIN 30.1 pg (27.0-31.0); MEAN CORPUSCULAR HGB CONC 33.2 g/dL (33.0-37.0); MEAN PLATELET VOLUME 9.6 fl (7.2-11.7); MONO # 1.1 K/uL (0.0-0.8); MONO % 9.6 % (0.0-10.0); NEUT # 8.8 K/uL (1.8-7.0); NEUT % 78.2 % (50.0-75.0); NRBC % 0.1 % (0.0-0.0); RED CELL DISTRIBUTION WIDTH 15.6 % (11.5-14.5); WHITE BLOOD COUNT 11.3 K/uL (4.8-10.8)
[2016-09-07] MEDS: Pantoprazole 40 mg EC Tab PO SCH (10:21)
[2016-09-07] MEDS: Metoprolol Succinate 100 mg XL Tab PO SCH (10:21)
--- NOTE | 2016-09-07 10:55 | US ---
HISTORY: Erythema, edema . PRIORS: None. FINDINGS: 2-D, color and duplex Doppler analysis of the lower extremity venous circulation using routine protocol from the femoral veins through the popliteal veins. Venous compressibility: Normal. Flow and augmentation patterns: Normal. Visualized veins upper third of calf: Normal. Gonzales cyst: None. IMPRESSION: No sonographic or Doppler evidence for DVT in left lower extremity.
--- NOTE | 2016-09-07 12:03 | CP.PCM.PN ---
Subjective - Date & Time of Evaluation Date of Evaluation: 09/07/16 Time of Evaluation: 08:40 - Subjective Subjective: Patient seen and examined at bedside, in no acute distress. Sitting in bed. Denies chest pain,weakness, fever or dizziness. SOB persists, is tolerating PO diet, has normal urine output. Has complaint of LLE redness and tenderness. Ambulates to bathroom with rolling walker at bedside. Reports his nasal congestion has improved. Objective - Vital Signs/Intake and Output Vital Signs (last 24 hours): Temp Pulse Resp BP Pulse Ox 98.1 F 73 18 139/69 97 09/07/16 11:50 09/07/16 11:50 09/07/16 11:50 09/07/16 11:50 09/07/16 11:50 - Medications Medications: Current Medications Acetaminophen (Tylenol 325mg Tab) 650 mg PO Q6 PRN PRN Reason: Fever >100.4 F Acetaminophen (Tylenol 325mg Tab) 650 mg PO Q6 PRN PRN Reason: Pain, Mild (1-3) Last Admin: 09/07/16 11:27 Dose: 650 mg Apixaban (Eliquis) 2.5 mg PO BID [facility] PRN Reason: Protocol Last Admin: 09/07/16 10:19 Dose: 2.5 mg Aspirin (Ecotrin) 81 mg PO DAILY [facility] Last Admin: 09/07/16 10:20 Dose: 81 mg Atorvastatin Calcium (Lipitor) 20 mg PO HS [facility] Last Admin: 09/06/16 21:17 Dose: 20 mg Finasteride (Proscar) 5 mg PO DAILY [facility] Last Admin: 09/07/16 10:20 Dose: 5 mg Gabapentin (Neurontin) 300 mg PO TID [facility] Last Admin: 09/07/16 10:19 Dose: 300 mg Hydrochlorothiazide (Hydrodiuril) 25 mg PO DAILY [facility] Last Admin: 09/07/16 10:20 Dose: 25 mg Cefepime HCl 2 gm/ Sodium (Chloride) 100 mls @ 100 mls/hr IVPB Q8H [facility] Last Admin: 09/07/16 05:47 Dose: 100 mls/hr Vancomycin HCl 1 gm/ Sodium (Chloride) 250 mls @ 166.667 mls/hr IVPB DAILY [facility] Last Admin: 09/07/16 10:21 Dose: 166.667 mls/hr Lisinopril (Zestril) 20 mg PO DAILY [facility] Last Admin: 09/07/16 10:20 Dose: 20 mg Loratadine (Claritin) 10 mg PO DAILY [facility] Last Admin: 09/07/16 10:22 Dose: 10 mg Metoprolol Succinate (Toprol Xl) 100 mg PO DAILY [facility] Last Admin: 09/07/16 10:21 Dose: 100 mg Oxymetazoline HCl (Nasal Decongestant 15 Ml) 1 spr NS Q12 PRN PRN Reason: Nasal congestion Last Admin: 09/06/16 10:18 Dose: 1 spr Pantoprazole Sodium (Protonix Ec Tab) 40 mg PO DAILY [facility] Last Admin: 09/07/16 10:21 Dose: 40 mg Sertraline HCl (Zoloft) 100 mg PO DAILY [facility] Last Admin: 09/07/16 10:20 Dose: 100 mg Sodium Chloride ([place] Nasal [place]) 2 sprays PB Q4 PRN PRN Reason: Nasal congestion Last Admin: 09/06/16 17:00 Dose: 2 spr Tamsulosin HCl (Flomax) 0.4 mg PO DAILY [facility] Last Admin: 09/07/16 10:20 Dose: 0.4 mg - Labs Labs: 09/07/16 05:45 09/06/16 05:00 PT 13.4 Seconds (9.8-13.1) H 09/05/16 21:10 INR 1.2 (0.9-1.2) 09/05/16 21:10 APTT 29.6 Seconds (25.6-37.1) 09/05/16 21:10 - Constitutional Appears: Non-toxic, No Acute Distress, Older Than Stated Age - Head Exam Head Exam: ATRAUMATIC, NORMOCEPHALIC - Eye Exam Eye Exam: EOMI, PERRL - ENT Exam ENT Exam: Mucous Membranes Moist - Neck Exam Neck Exam: Full ROM. absent: Lymphadenopathy - Respiratory Exam Respiratory Exam: Clear to Ausculation Bilateral, NORMAL BREATHING PATTERN - Cardiovascular Exam Cardiovascular Exam: REGULAR RHYTHM, +S1, +S2 - GI/Abdominal Exam GI & Abdominal Exam: Soft (obese). absent: Distended, Tenderness - Extremities Exam Extremities Exam: Full ROM, Pedal Edema (bilateral pitting +1; left distal extremity erythematous from below knee to ankle with increased warmth and mildly tender to palpation) - Back Exam Back Exam: absent: CVA tenderness (L), CVA tenderness (R) - Neurological Exam Neurological Exam: Alert, Awake, CN II-XII Intact, Oriented x3 - Psychiatric Exam Psychiatric exam: Normal Affect, Normal Mood - Skin Skin Exam: Dry, Intact, Warm Assessment and Plan - Assessment and Plan (Free Text) Assessment: 85 yr old M admitted for fever and SOB with PMHx of HTN, Afib, HLD, and chronic back pain. Patient was febrile/tachycardic with leukocytosis. Fever and tachycardia have resolved, leukocytosis persists but is improving. Acute LLE cellulitis, no DVT. Patient is being treated with IV antibiotics. ID is on board. 1) SIRS -acute, improving -likely secondary to LLE cellulitis -leukocytosis 11.3 (improved) -Lactate 0.8 -ID consult appreciated-Dr. Bernard: will follow recommendations -Day 2 Cefepime 2gm IVPB Q8H, Day 1 Vancomycin 750mg PO Q12H -Tylenol 650mg PO Q6H PRN Fever -CXR: no active disease, no change compared to prior CXR -BNP wnl, troponin neg x 2, procalcitonin wnl -BCx no growth x 24hrs -LLE Duplex: no evidence of DVT -f/u UCx, urine legionella, mycolasma serology, 2) HTN -Controlled -Echo performed on 07/11/16 revealed mild concentric LVH with normal LVEF. Grade- I abnormal relaxation was also detected. -EKG sinus rhythm with no acute ischemic changes -adjusted Lisinopril 40mg Daily (Home Med) -Metoprolol 100mg PO Daily (Home Med) -Hydrochlorothiazide 25mg PO Daily (Home Med) -monitor BP 3) Paroxysmal Afib, chronic -Rate controlled -Metoprolol 100mg PO daily (Home Med) -Eliquis 2.5mg PO BID for anticoagulation (Home Med) 4) Hyperlipidemia -Well controlled -Last lipid panel total chol:138, LDL: 72, HDL: 40 -Continue Atorvastatin 20mg PO QHS (Home Med) 5) BPH -Asymptomatic -Finasteride 5mg PO Daily (Home Med) -Tamsulosin 0.4mg PO Daily (Home Med) 6) Chronic back pain -Gabapentin 300mg PO TID (Home Med) 7) DVT Prophylaxis -Eliquis 2.5mg PO BID for anticoagulation (Home Med) -SCDs
--- NOTE | 2016-09-07 12:33 | CP.PCM.PN ---
Subjective - Date & Time of Evaluation Date of Evaluation: 09/07/16 Time of Evaluation: 12:32 - Subjective Subjective: ID Note- Pt. seen and examined today. denies any cough or any sob, however does c/o pain in left leg. Objective - Vital Signs/Intake and Output Vital Signs (last 24 hours): Temp Pulse Resp BP Pulse Ox 98.1 F 73 18 139/69 97 09/07/16 11:50 09/07/16 11:50 09/07/16 11:50 09/07/16 11:50 09/07/16 11:50 - Medications Medications: Current Medications Acetaminophen (Tylenol 325mg Tab) 650 mg PO Q6 PRN PRN Reason: Fever >100.4 F Acetaminophen (Tylenol 325mg Tab) 650 mg PO Q6 PRN PRN Reason: Pain, Mild (1-3) Last Admin: 09/07/16 11:27 Dose: 650 mg Apixaban (Eliquis) 2.5 mg PO BID [facility] PRN Reason: Protocol Last Admin: 09/07/16 10:19 Dose: 2.5 mg Aspirin (Ecotrin) 81 mg PO DAILY [facility] Last Admin: 09/07/16 10:20 Dose: 81 mg Atorvastatin Calcium (Lipitor) 20 mg PO HS [facility] Last Admin: 09/06/16 21:17 Dose: 20 mg Finasteride (Proscar) 5 mg PO DAILY [facility] Last Admin: 09/07/16 10:20 Dose: 5 mg Gabapentin (Neurontin) 300 mg PO TID [facility] Last Admin: 09/07/16 10:19 Dose: 300 mg Hydrochlorothiazide (Hydrodiuril) 25 mg PO DAILY [facility] Last Admin: 09/07/16 10:20 Dose: 25 mg Cefepime HCl 2 gm/ Sodium (Chloride) 100 mls @ 100 mls/hr IVPB Q8H [facility] Last Admin: 09/07/16 05:47 Dose: 100 mls/hr Vancomycin HCl 1 gm/ Sodium (Chloride) 250 mls @ 166.667 mls/hr IVPB DAILY [facility] Last Admin: 09/07/16 10:21 Dose: 166.667 mls/hr Lisinopril (Zestril) 20 mg PO DAILY [facility] Last Admin: 09/07/16 10:20 Dose: 20 mg Loratadine (Claritin) 10 mg PO DAILY [facility] Last Admin: 09/07/16 10:22 Dose: 10 mg Metoprolol Succinate (Toprol Xl) 100 mg PO DAILY [facility] Last Admin: 09/07/16 10:21 Dose: 100 mg Oxymetazoline HCl (Nasal Decongestant 15 Ml) 1 spr NS Q12 PRN PRN Reason: Nasal congestion Last Admin: 09/06/16 10:18 Dose: 1 spr Pantoprazole Sodium (Protonix Ec Tab) 40 mg PO DAILY [facility] Last Admin: 09/07/16 10:21 Dose: 40 mg Sertraline HCl (Zoloft) 100 mg PO DAILY [facility] Last Admin: 09/07/16 10:20 Dose: 100 mg Sodium Chloride ([place] Nasal [place]) 2 sprays PB Q4 PRN PRN Reason: Nasal congestion Last Admin: 09/06/16 17:00 Dose: 2 spr Tamsulosin HCl (Flomax) 0.4 mg PO DAILY [facility] Last Admin: 09/07/16 10:20 Dose: 0.4 mg - Labs Labs: - Additional Findings Additional findings: - Constitutional Appears: No Acute Distress - Head Exam Head Exam: ATRAUMATIC - Eye Exam Eye Exam: EOMI, PERRL - ENT Exam ENT Exam: Normal Oropharynx - Respiratory Exam Respiratory Exam: NORMAL BREATHING PATTERN Additional comments: good breath sounds b/l no wheezing no rhonchi - Cardiovascular Exam Additional comments: irregularly irregular - GI/Abdominal Exam GI & Abdominal Exam: Normal Bowel Sounds, Soft Additional comments: NT, ND - Extremities Exam Additional comments: 2+ pitting edema b/l LE, LLE with erythema from above ankle to mid calf region left achile area with small papule covered with purple ink/ointment no d/c no open wounds right lateral feet 2 small papules agian covered with purple ink/ointment , no active discharge, no open wounds - Neurological Exam Neurological exam: Alert, Oriented x 3 Laboratory Results - last 72 hr 09/05/16 09/05/16 09/05/16 21:10 21:10 21:10 WBC 16.4 H D RBC 4.35 L Hgb 12.9 Hct 39.7 MCV 91.3 MCH 29.7 MCHC 32.6 L RDW 15.8 H Plt Count 209 MPV 9.4 Neut % (Auto) 89.7 H Lymph % (Auto) 4.1 L [place] % (Auto) 5.8 Eos % (Auto) 0.1 Baso % (Auto) 0.3 Neut # 14.7 H Lymph # 0.7 L [place] # 0.9 H Eos # 0.0 Baso # 0.0 Neutrophils % (Manual) 88 H Band Neutrophils % 2 Lymphocytes % (Manual) 5 L Monocytes % (Manual) 4 Basophils % (Manual) 1 Platelet Estimate Normal Large Platelets Present Anisocytosis (manual) Slight Tear Drop Cells Slight Ovalocytes Slight PT 13.4 H INR 1.2 APTT 29.6 pCO2 pO2 HCO3 ABG pH ABG Total CO2 ABG O2 Saturation ABG Base Excess Oscar Test ABG Potassium A-a O2 Difference Glucose Lactate FiO2 Sodium 137 Potassium 4.1 Chloride 102 Carbon Dioxide 25 Anion Gap 14 BUN 28 H Creatinine 0.9 Est GFR ( Amer) > 60 Est GFR (Non-Af Amer) > 60 POC Glucose (mg/dL) Random Glucose 111 H Calcium 9.0 Phosphorus 2.1 L Magnesium 1.8 Total Bilirubin 0.7 AST 26 ALT 36 Alkaline Phosphatase 93 Troponin I < 0.0120 NT-Pro-B Natriuret Pep Total Protein 7.9 Albumin 4.3 Globulin 3.6 Albumin/Globulin Ratio 1.2 Lipase 73 Procalcitonin Arterial Blood Potassium Urine Color Urine Clarity Urine pH Ur Specific [place] Urine Protein Urine Glucose (UA) Urine Ketones Urine Blood Urine Nitrate Urine Bilirubin Urine Urobilinogen Ur Leukocyte Esterase Urine RBC (Auto) Urine Microscopic WBC Ur Squamous Epith Cells Influenza Typ A,B (EIA) Blood Type Antibody Screen BBK History Checked 09/05/16 09/05/16 09/05/16 21:10 21:10 21:23 WBC RBC Hgb Hct MCV MCH MCHC RDW Plt Count MPV Neut % (Auto) Lymph % (Auto) [place] % (Auto) Eos % (Auto) Baso % (Auto) Neut # Lymph # [place] # Eos # Baso # Neutrophils % (Manual) Band Neutrophils % Lymphocytes % (Manual) Monocytes % (Manual) Basophils % (Manual) Platelet Estimate Large Platelets Anisocytosis (manual) Tear Drop Cells Ovalocytes PT INR APTT pCO2 pO2 HCO3 ABG pH ABG Total CO2 ABG O2 Saturation ABG Base Excess Oscar Test ABG Potassium A-a O2 Difference Glucose Lactate FiO2 Sodium Potassium Chloride Carbon Dioxide Anion Gap BUN Creatinine Est GFR ( Amer) Est GFR (Non-Af Amer) POC Glucose (mg/dL) 122 H Random Glucose Calcium Phosphorus Magnesium Total Bilirubin AST ALT Alkaline Phosphatase Troponin I NT-Pro-B Natriuret Pep Total Protein Albumin Globulin Albumin/Globulin Ratio Lipase Procalcitonin Arterial Blood Potassium Urine Color Urine Clarity Urine pH Ur Specific [place] Urine Protein Urine Glucose (UA) Urine Ketones Urine Blood Urine Nitrate Urine Bilirubin Urine Urobilinogen Ur Leukocyte Esterase Urine RBC (Auto) Urine Microscopic WBC Ur Squamous Epith Cells Influenza Typ A,B (EIA) Negative for flu a/b Blood Type O NEGATIVE Antibody Screen Negative BBK History Checked Patient has bt 09/05/16 09/05/16 09/06/16 21:28 23:50 05:00 WBC 13.9 H RBC 4.28 L Hgb 12.8 Hct 39.4 MCV 92.0 MCH 29.9 MCHC 32.5 L RDW 15.9 H Plt Count 199 MPV Neut % (Auto) Lymph % (Auto) [place] % (Auto) Eos % (Auto) Baso % (Auto) Neut # Lymph # [place] # Eos # Baso # Neutrophils % (Manual) Band Neutrophils % Lymphocytes % (Manual) Monocytes % (Manual) Basophils % (Manual) Platelet Estimate Large Platelets Anisocytosis (manual) Tear Drop Cells Ovalocytes PT INR APTT pCO2 34 L pO2 63 L HCO3 24.3 ABG pH 7.44 ABG Total CO2 24.1 ABG O2 Saturation 96.9 ABG Base Excess -0.6 Oscar Test Yes ABG Potassium 3.7 A-a O2 Difference 94.0 Glucose 112 H Lactate 0.8 FiO2 28.0 Sodium 134.0 Potassium Chloride 106.0 Carbon Dioxide Anion Gap BUN Creatinine Est GFR ( Amer) Est GFR (Non-Af Amer) POC Glucose (mg/dL) Random Glucose Calcium Phosphorus Magnesium Total Bilirubin AST ALT Alkaline Phosphatase Troponin I NT-Pro-B Natriuret Pep Total Protein Albumin Globulin Albumin/Globulin Ratio Lipase Procalcitonin Arterial Blood Potassium 3.7 Urine Color Yellow Urine Clarity Clear Urine pH 6.0 Ur Specific [place] 1.018 Urine Protein 100 Urine Glucose (UA) Neg Urine Ketones Negative Urine Blood Negative Urine Nitrate Negative Urine Bilirubin Negative Urine Urobilinogen 0.2-1.0 Ur Leukocyte Esterase Neg Urine RBC (Auto) 1 Urine Microscopic WBC 3 Ur Squamous Epith Cells < 1 Influenza Typ A,B (EIA) Blood Type Antibody Screen BBK History Checked 09/06/16 09/06/16 09/07/16 05:00 08:38 05:45 WBC 11.3 H RBC 4.03 L Hgb 12.1 Hct 36.6 MCV 90.8 MCH 30.1 MCHC 33.2 RDW 15.6 H Plt Count 188 MPV 9.6 Neut % (Auto) 78.2 H Lymph % (Auto) 10.8 L [place] % (Auto) 9.6 Eos % (Auto) 1.1 Baso % (Auto) 0.3 Neut # 8.8 H Lymph # 1.2 [place] # 1.1 H Eos # 0.1 Baso # 0.0 Neutrophils % (Manual) Band Neutrophils % Lymphocytes % (Manual) Monocytes % (Manual) Basophils % (Manual) Platelet Estimate Large Platelets Anisocytosis (manual) Tear Drop Cells Ovalocytes PT INR APTT pCO2 pO2 HCO3 ABG pH ABG Total CO2 ABG O2 Saturation ABG Base Excess [place] Test ABG Potassium A-a O2 Difference Glucose Lactate FiO2 Sodium 139 Potassium 4.1 Chloride 103 Carbon Dioxide 27 Anion Gap 13 BUN 23 H Creatinine 0.9 Est GFR ( Amer) > 60 Est GFR (Non-Af Amer) > 60 POC Glucose (mg/dL) Random Glucose 109 Calcium 8.6 Phosphorus Magnesium Total Bilirubin AST ALT Alkaline Phosphatase Troponin I < 0.0120 NT-Pro-B Natriuret Pep 589 Total Protein Albumin Globulin Albumin/Globulin Ratio Lipase Procalcitonin 0.21 Arterial Blood Potassium Urine Color Urine Clarity Urine pH Ur Specific [place] Urine Protein Urine Glucose (UA) Urine Ketones Urine Blood Urine Nitrate Urine Bilirubin Urine Urobilinogen Ur Leukocyte Esterase Urine RBC (Auto) Urine Microscopic WBC Ur Squamous Epith Cells Influenza Typ A,B (EIA) Blood Type Antibody Screen BBK History Checked Microbiology 09/05/16 21:40 Blood-Venous Blood Culture - Preliminary NO GROWTH AFTER 24 HOURS 09/05/16 21:10 Blood-Venous Blood Culture - Preliminary NO GROWTH AFTER 24 HOURS Patient Name / ID : ZITA LINARES / [id number] Exam Date : 09/07/2016 08:43:21 ( Approved ) Study Comment : Sex / Age : M / [id number] Creator : Taj Beth MD Dictator : Taj Beth MD Sales Representative Education Courses : [employer] Pot : Taj Beth MD Approver2 : Report Date : 09/07/2016 10:52:53 My Comment : HISTORY: Erythema, edema . PRIORS: None. FINDINGS: 2-D, color and duplex Doppler analysis of the lower extremity venous circulation using routine protocol from the femoral veins through the popliteal veins. Venous compressibility: Normal. Flow and augmentation patterns: Normal. Visualized veins upper third of calf: Normal. Gonzales cyst: None. IMPRESSION: No sonographic or Doppler evidence for DVT in left lower extremity. Assessment and Plan (1) SIRS (systemic inflammatory response syndrome) Status: Acute (2) Leukocytosis Status: Acute (3) Lower extremity edema Status: Acute - Assessment and Plan (Free Text) Assessment: A/P- 85 year old male with multiple medical conditions admitted witg fever , sob and found to have leukocytosis. afebrile Leukocytosis resolving blood cx- neg x 2 LE US report- neg for dvt plan- await urine legionella and mycoplasma serologies as well. advise to continue with IV cefepime and would also advise to continue IV vancomycin as well to cover for LLE ? cellullitis. day #2. keep vanco trough <15. keep LLE elevated while in bed. advise to also get derm consult for further eval of the bluih papaules on b/l feet and possible punch BX to r/o any malignancy. all above d/w patient and he verbalizes full understanding of all above.
[2016-09-07] MEDS: Nasal Spray(Ocean spray) NAS PRN (17:02)
[2016-09-07 20:05] VITALS: RESP 20
[2016-09-07] MEDS: Oxycodone/Acetaminophen 5/325 mg Tab PO PRN (22:00)
[2016-09-08] MEDS: Cefepime 2 GM in Sodium Chloride 0.9% 100 ML IVPB SCH ×2 (05:19→13:06)
[2016-09-08 07:55] VITALS: BP 155/85; PULSE 84; TEMP 97.9; O2SAT 97
[2016-09-08] MEDS: Pantoprazole 40 mg EC Tab PO SCH (08:17)
[2016-09-08] MEDS: Metoprolol Succinate 100 mg XL Tab PO SCH (08:18)
[2016-09-08] MEDS: Oxycodone/Acetaminophen 5/325 mg Tab PO PRN ×2 (08:26→13:41)
--- NOTE | 2016-09-08 09:53 | CP.PCM.DIS ---
Provider - Provider Date of Admission: 09/05/16 22:11 Attending physician: Kallie Turcios MD Primary care physician: Dr. Baumann Consults: Dr. Alcantara Time Spent in preparation of Discharge (in minutes): 30 Diagnosis - Discharge Diagnosis (1) SIRS (systemic inflammatory response syndrome) Status: Resolved Priority: Low (2) Cellulitis of left lower extremity Status: Acute Priority: Medium Hospital Course - Lab Results Lab Results: Most Recent Lab Values WBC 11.3 K/uL (4.8-10.8) H 09/07/16 05:45 RBC 4.03 Mil/uL (4.40-5.90) L 09/07/16 05:45 Hgb 12.1 g/dL (12.0-18.0) 09/07/16 05:45 Hct 36.6 % (35.0-51.0) 09/07/16 05:45 MCV 90.8 fl (80.0-94.0) 09/07/16 05:45 MCH 30.1 pg (27.0-31.0) 09/07/16 05:45 MCHC 33.2 g/dL (33.0-37.0) 09/07/16 05:45 RDW 15.6 % (11.5-14.5) H 09/07/16 05:45 Plt Count 188 K/uL (130-400) 09/07/16 05:45 MPV 9.6 fl (7.2-11.7) 09/07/16 05:45 Neut % (Auto) 78.2 % (50.0-75.0) H 09/07/16 05:45 Lymph % (Auto) 10.8 % (20.0-40.0) L 09/07/16 05:45 [place] % (Auto) 9.6 % (0.0-10.0) 09/07/16 05:45 Eos % (Auto) 1.1 % (0.0-4.0) 09/07/16 05:45 Baso % (Auto) 0.3 % (0.0-2.0) 09/07/16 05:45 Neut # 8.8 K/uL (1.8-7.0) H 09/07/16 05:45 Lymph # 1.2 K/uL (1.0-4.3) 09/07/16 05:45 [place] # 1.1 K/uL (0.0-0.8) H 09/07/16 05:45 Eos # 0.1 K/uL (0.0-0.7) 09/07/16 05:45 Baso # 0.0 K/uL (0.0-0.2) 09/07/16 05:45 Neutrophils % (Manual) 88 % (42-75) H 09/05/16 21:10 Band Neutrophils % 2 % (0-2) 09/05/16 21:10 Lymphocytes % (Manual) 5 % (20-50) L 09/05/16 21:10 Monocytes % (Manual) 4 % (0-10) 09/05/16 21:10 Basophils % (Manual) 1 % (0-2) 09/05/16 21:10 Platelet Estimate Normal (NORMAL) 09/05/16 21:10 Large Platelets Present 09/05/16 21:10 Anisocytosis (manual) Slight 09/05/16 21:10 Tear Drop Cells Slight 09/05/16 21:10 Ovalocytes Slight 09/05/16 21:10 PT 13.4 Seconds (9.8-13.1) H 09/05/16 21:10 INR 1.2 (0.9-1.2) 09/05/16 21:10 APTT 29.6 Seconds (25.6-37.1) 09/05/16 21:10 pCO2 34 mm/Hg (35-45) L 09/05/16 21:28 pO2 63 mm/Hg (80-100) L 09/05/16 21:28 HCO3 24.3 mmol/L (21-28) 09/05/16 21:28 ABG pH 7.44 (7.35-7.45) 09/05/16 21:28 ABG Total CO2 24.1 mmol/L (22-28) 09/05/16 21:28 ABG O2 Saturation 96.9 % (95-98) 09/05/16 21:28 ABG Base Excess -0.6 mmol/L (-2.0-3.0) 09/05/16 21:28 Oscar Test Yes 09/05/16 21:28 ABG Potassium 3.7 mmol/L (3.6-5.2) 09/05/16 21:28 A-a O2 Difference 94.0 mm/Hg 09/05/16 21:28 Sodium 134.0 mmol/L (132-148) 09/05/16 21:28 Chloride 106.0 mmol/L (98-107) 09/05/16 21:28 Glucose 112 mg/dL (75-110) H 09/05/16 21:28 Lactate 0.8 mmol/L (0.7-2.1) 09/05/16 21: FiO2 28.0 % 09/05/16 21:28 Sodium 139 mmol/l (132-148) 09/06/16 05:00 Potassium 4.1 MMOL/L (3.6-5.0) 09/06/16 05:00 Chloride 103 mmol/L (98-107) 09/06/16 05:00 Carbon Dioxide 27 mmol/L (22-30) 09/06/16 05:00 Anion Gap 13 (10-20) 09/06/16 05:00 BUN 23 mg/dl (9-20) H 09/06/16 05:00 Creatinine 0.9 mg/dL (0.8-1.5) 09/06/16 05:00 Est GFR ( Amer) > 60 09/06/16 05:00 Est GFR (Non-Af Amer) > 60 09/06/16 05:00 POC Glucose (mg/dL) 122 mg/dL (65-110) H 09/05/16 21:23 Random Glucose 109 mg/dL (75-110) 09/06/16 05:00 Calcium 8.6 mg/dL (8.4-10.2) 09/06/16 05:00 Phosphorus 2.1 mg/dl (2.5-4.5) L 09/05/16 21:10 Magnesium 1.8 MG/DL (1.6-2.3) 09/05/16 21:10 Total Bilirubin 0.7 mg/dl (0.2-1.3) 09/05/16 21:10 AST 26 U/L (17-59) 09/05/16 21:10 ALT 36 U/L (21-72) 09/05/16 21:10 Alkaline Phosphatase 93 U/L (38-126) 09/05/16 21:10 Troponin I < 0.0120 ng/mL (0.00-0.120) 09/06/16 05:00 NT-Pro-B Natriuret Pep 589 pg/ml (0-900) 09/06/16 05:00 Total Protein 7.9 G/DL (6.3-8.2) 09/05/16 21:10 Albumin 4.3 g/dL (3.5-5.0) 09/05/16 21:10 Globulin 3.6 gm/dL (2.2-3.9) 09/05/16 21:10 Albumin/Globulin Ratio 1.2 (1.0-2.1) 09/05/16 21:10 Lipase 73 U/L (23-300) 09/05/16 21:10 Procalcitonin 0.21 NG/ML (0.19-0.49) 09/06/16 08:38 Arterial Blood Potassium 3.7 mmol/L (3.6-5.2) 09/05/16 21:28 Urine Color Yellow (YELLOW) 09/05/16 23:50 Urine Clarity Clear (Clear) 09/05/16 23:50 Urine pH 6.0 (5.0-8.0) 09/05/16 23:50 Ur Specific [place] 1.018 (1.003-1.030) 09/05/16 23:50 Urine Protein 100 mg/dL (NEGATIVE) 09/05/16 23:50 Urine Glucose (UA) Neg mg/dL (Normal) 09/05/16 23:50 Urine Ketones Negative mg/dL (NEGATIVE) 09/05/16 23:50 Urine Blood Negative (NEGATIVE) 09/05/16 23:50 Urine Nitrate Negative (NEGATIVE) 09/05/16 23:50 Urine Bilirubin Negative (NEGATIVE) 09/05/16 23:50 Urine Urobilinogen 0.2-1.0 mg/dL (0.2-1.0) 09/05/16 23:50 Ur Leukocyte Esterase Neg [place]/uL (Negative) 09/05/16 23:50 Urine RBC (Auto) 1 /hpf (0-3) 09/05/16 23:50 Urine Microscopic WBC 3 /hpf (0-5) 09/05/16 23:50 Ur Squamous Epith Cells < 1 /hpf (0-5) 09/05/16 23:50 Influenza Typ A,B (EIA) Negative for flu a/b (NEGATIVE) 09/05/16 21:10 Blood Type O NEGATIVE 09/05/16 21:10 Antibody Screen Negative 09/05/16 21:10 BBK History Checked Patient has bt 09/05/16 21:10 - Hospital Course Hospital Course: 85 yr old M admitted for fever and SOB with PMHx of HTN, Afib, HLD, and chronic back pain. Patient was found to meet criteria for SIRS with fever/tachycardia and leukocytosis. SIRS resolved, patient remained afebrile. Leukocytosis persists but is improving. Patient was found to have Acute LLE cellulitis, no DVT evidence on LLE DUplex. Patient is being treated with IV antibiotics. ID is on board. Patient is tolerating PT, PO diet and is stable for discharge to TCU. - Date & Time of H&P Date of H&P: 09/06/16 Time of H&P: 00:48 Discharge Exam - Head Exam Head Exam: ATRAUMATIC, NORMOCEPHALIC - Eye Exam Eye Exam: EOMI, PERRL - ENT Exam ENT Exam: Mucous Membranes Moist - Neck Exam Neck exam: Full Rom (no lymphadenopathy) - Respiratory Exam Respiratory Exam: Clear to PA & Lateral, NORMAL BREATHING PATTERN. absent: Rales - Cardiovascular Exam Cardiovascular Exam: REGULAR RHYTHM, +S1, +S2 - GI/Abdominal Exam GI & Abdominal Exam: Normal Bowel Sounds, Soft (obese). absent: Distended, Tenderness - Extremities Exam Extremities exam: full ROM, normal capillary refill, pedal edema (+1 pitting of LLE, verruca vulgaris on left posterior ankle and right lateral foot- non tender /non erythematous/no drainage), tenderness (of LLE from knee to above ankle, with erythema and warmth), pedal pulses present - Back Exam Back exam: absent: CVA tenderness (L), CVA tenderness (R) - Neurological Exam Neurological exam: Alert, CN II-XII Intact, Oriented x3 - Psychiatric Exam Psychiatric exam: Normal Affect, Normal Mood - Skin Skin Exam: Dry, Intact, Warm Discharge Plan - Follow Up Plan Condition: FAIR Disposition: REHAB FACILITY/REHAB UNIT Patient education suggested?: Yes Instructions: Cellulitis (DC), Cryotherapy Wart Removal (DC), Common Wart (GEN) Additional Instructions: -Discharge to TCU -Follow up at [facility] with Dr. Baumann once discharged from TCU -Continue home meds -Continue IV antibiotic tx with Cefepime 2gm IV Q8 and Vancomycin 750mg IV Q12 -Refer to Dermatology as outpatient Referrals: Eduardo Baumann MD [Resident] -
--- NOTE | 2016-09-09 10:36 | PQF SEPSIS ---
Dr. Turcios pt was admitted with SIRS. Does pt have a diagnosis of Sepsis? or Sirs due to infectious process without Sepsis? This form is a permanent part of the medical record Clarification of your documentation is requested to better reflect the severity of illness and intensity of treatment of your patient. Indicators present [] Temp < 96.8 or > 100.4 [] WBC count > 12,000/mm3 or <000/mm3 or 10% immature neutrophils [] Heart Rate > 90 [] Respiratory Rate > 20 [] Fever or hypothermia [] Chills [] Positive blood cultures [] Hypotension [] Metabolic acidosis (Elevated lactate level, anion gap or reduced blood pH) [] Acute confusion /Altered Mental Status [] Shock [] Other: [] Location in the medical record that reflects the above clinical findings: [] Treatment Provided: [] PHYSICIAN'S RESPONSE Based on your medical judgment of the clinical indicators outlined above, are you treating this patient for a known or suspected: [] Sepsis / Septicemia Please specify organism if known [] [] SIRS (Systemic Inflammatory Response Syndrome) [] Severe Sepsis (Sepsis with Associated Organ Dysfunction) [] Fever of Unknown Origin [] Other, please indicate: [] [] If Unable to Determine, please check the box, sign and date. Present On Admission (POA) Indicator: [] Present at the time of admission [] Not present at the time of admission [] Clinically Undetermined In responding to this query, please exercise your independent professional judgment. The fact that a question is asked does not imply that any particular answer is desired or expected. Thank you for your clarification on this documentation. If you have any questions please call:[ ] * Thank you, [ ]Deonna Paul accuracy expert JOSEPH
== END 2016-09-08 16:29 | DRG 603 ==
LOC: H.ER 20:55 → H.ERHOLD 22:11 → H.TEL 09-06 01:40 → H.MEDSURG1 09-07 17:53
PROVIDERS: ADMIT Family Medicine Geriatric Medicine; ATTEND Family Medicine Geriatric Medicine
DX: L03.116 Cellulitis of left lower limb (principal); I48.0 Paroxysmal atrial fibrillation; E86.0 Dehydration; E78.5 Hyperlipidemia, unspecified; G89.29 Other chronic pain; I10 Essential (primary) hypertension; F41.9 Anxiety disorder, unspecified; N40.0 Benign prostatic hyperplasia without lower urinary tract symptoms; Z87.891 Personal history of nicotine dependence; E78.00 Pure hypercholesterolemia, unspecified; R60.9 Edema, unspecified

== ENCOUNTER 2016-09-08 10:26 | Inpatient (IN) | payer OTHER, MEDICAID ==
[2016-09-08 15:10] VITALS: BMI 28.7
[2016-09-08] MEDS ORDERED: Nasal Spray(Ocean spray) NAS PRN (15:29)
[2016-09-08 16:26] VITALS: RESP 20
--- NOTE | 2016-09-08 17:25 | CP.PCM.CON ---
History of Present Illness - History of Present Illness History of Present Illness: Patient is a pleasant 85 year old male multiple medical conditions including HTN, HTN, A.Fib, HLD, chronic back pain who was admitted for fever and sob and found to have leukocytosis. and also was found to have B/L pitting rashaun and LLE erythema /cellulitis. pulmonary smith he is doing ok and cxr was negative for any infiltrates . he was started on empiric abx to cover both pulmonary and skin pathogens for the LLE cellulitis. pt. has been doing well and was transferred to TCU by the primary team to get PT and rehab and his antibiotics. Pt. states he is feeling fine and other than continuous left leg pain, denies any other complaints. ROS- denies any fever or chills, denies any cough, denies any sob, denies any chest pain, denies any n/v, denies any abd. pain, denies any dysurea, denies any diarrhea, denies any ARCE, b/l le edema and c/o left leg pain and redness but redness has decreased. allergy-NKDA - Constitutional Appears: No Acute Distress - Head Exam Head Exam: ATRAUMATIC - Eye Exam Eye Exam: EOMI, PERRL - ENT Exam ENT Exam: Normal Oropharynx - Respiratory Exam Respiratory Exam: NORMAL BREATHING PATTERN Additional comments: good breath sounds b/l no wheezing no rhonchi - Cardiovascular Exam Additional comments: irregularly irregular - GI/Abdominal Exam GI & Abdominal Exam: Normal Bowel Sounds, Soft Additional comments: NT, ND - Extremities Exam Additional comments: 2+ pitting edema b/l LE, LLE with erythema from above ankle to mid calf region but less erythematous and not as warm to touch as before left achile area with small papule covered with purple ink/ointment no d/c no open wounds right lateral feet 2 small papules agian covered with purple ink/ointment , no active discharge, no open wounds - Neurological Exam Neurological exam: Alert, Oriented x 3 Past Patient History - Past Medical History & Family History Past Medical History?: Yes - Past Social History Smoking Status: Former Smoker - CARDIAC Hx Atrial Fibrillation: Yes Hx Hypercholesterolemia: Yes Hx Hypertension: Yes - PULMONARY Hx Respiratory Disorders: No Hx Pneumonia: Yes - NEUROLOGICAL Hx Neurological Disorder: No - HEENT Hx HEENT Problems: Yes Hx Cataracts: Yes - RENAL Hx Chronic Kidney Disease: No - ENDOCRINE/METABOLIC Hx Endocrine Disorders: No - HEMATOLOGICAL/ONCOLOGICAL Hx Blood Disorders: No - INTEGUMENTARY Hx Dermatological Problems: No - MUSCULOSKELETAL/RHEUMATOLOGICAL Hx Arthritis: Yes - GASTROINTESTINAL Hx Gastrointestinal Disorders: No - GENITOURINARY/GYNECOLOGICAL Hx Genitourinary Disorders: Yes Hx Prostate Problems: Yes (BPH) - PSYCHIATRIC Hx Anxiety: Yes - SURGICAL HISTORY Hx Surgeries: Yes - ANESTHESIA Hx Anesthesia: Yes Hx Anesthesia Reactions: No Hx Malignant Hyperthermia: No Meds Allergies/Adverse Reactions: Allergies Allergy/AdvReac Type Severity Reaction Status Date / Time No Known Allergies Allergy Verified 07/11/16 15:40 - Medications Medications: Current Medications Acetaminophen (Tylenol 325mg Tab) 650 mg PO Q6 PRN PRN Reason: Fever >100.4 F Apixaban (Eliquis) 2.5 mg PO BID [facility] PRN Reason: Protocol Aspirin (Ecotrin) 81 mg PO DAILY [facility] Atorvastatin Calcium (Lipitor) 20 mg PO HS [facility] Finasteride (Proscar) 5 mg PO DAILY [facility] Gabapentin (Neurontin) 300 mg PO TID [facility] Hydrochlorothiazide (Hydrodiuril) 25 mg PO DAILY [facility] Vancomycin HCl 750 mg/ Sodium (Chloride) 250 mls @ 166.667 mls/hr IVPB Q12 [facility] Cefepime HCl 2 gm/ Sodium (Chloride) 100 mls @ 100 mls/hr IVPB Q8@0600,1400, 2200 [facility] Lisinopril (Zestril) 40 mg PO DAILY [facility] Loratadine (Claritin) 10 mg PO DAILY [facility] Metoprolol Succinate (Toprol Xl) 100 mg PO DAILY [facility] Oxycodone/Acetaminophen (Percocet 5/325 Mg Tab) 1 tab PO Q6 PRN PRN Reason: Pain, moderate (4-7) Stop: 09/11/16 15:30 Oxymetazoline HCl (Nasal Decongestant 15 Ml) 1 spr NS Q12 PRN PRN Reason: Nasal congestion Pantoprazole Sodium (Protonix Ec Tab) 40 mg PO DAILY [facility] Sertraline HCl (Zoloft) 100 mg PO DAILY [facility] Sodium Chloride ([place] Nasal [place]) 2 sprays PB Q4 PRN PRN Reason: Nasal congestion Tamsulosin HCl (Flomax) 0.4 mg PO DAILY [facility] Results - Vital Signs Recent Vital Signs: Last Vital Signs Temp 97.9 F 09/08/16 16:25 Pulse 62 09/08/16 16:25 Resp 20 09/08/16 16:25 BP 154/86 H 09/08/16 16:25 Pulse Ox 99 09/08/16 16:25 - Labs Result Diagrams: 09/09/16 05:30 09/09/16 05:30 Labs: Microbiology 09/05/16 08:16 Urine Urine Culture - Final No Growth (<1,000 CFU/ML) 09/07/16 11:20 Blood Blood Culture - Preliminary 09/07/16 11:20 Blood NO GROWTH AFTER 24 HOURS 09/05/16 21:40 Blood-Venous Blood Culture - Preliminary 09/05/16 21:40 Blood-Venous NO GROWTH AFTER 3 DAYS 09/05/16 21:10 Blood-Venous Blood Culture - Preliminary 09/05/16 21:10 Blood-Venous NO GROWTH AFTER 3 DAYS Accession No. 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 PRIORS: None. FINDINGS: 2-D, color and duplex Doppler analysis of the lower extremity venous circulation using routine protocol from the femoral veins through the popliteal veins. Venous compressibility: Normal. Flow and augmentation patterns: Normal. Visualized veins upper third of calf: Normal. Gonzales cyst: None. IMPRESSION: No sonographic or Doppler evidence for DVT in left lower extremity. Assessment & Plan (1) Cellulitis of left lower extremity Status: Acute Priority: Medium (2) Lower extremity edema Status: Acute (3) Hypertension Status: Chronic - Assessment and Plan (Free Text) Assessment: A/P- 85 year old male with multiple medical conditions [facility] was found to have leukocytosis and b/l LE edema nad LLE cellulitis. transferred to tcu by primary team to get PT and rehab and complete his abx therppay as well. afebrile Leukocytosis has resolved. blood cx- neg x 2 urine cx- neg LE US report- neg for dvt plan- has been on IV cefepime and vancomycin for 4 days so far. advise to d/ce cefepime at this time since no sign of pulmonary infiltrates. advise to continue with IV vancomycin for the LLE cellulitis. day #4 advise if erythema improves can be switched to oral abx for the cellulitis. keep vanco trough <15. keep LLE elevated while in bed. all above d/w pt. at length and he verbalzies full understanding of all above. all above d/w primary team here as well. Thank you for allowing me to take part in the care of this patient.
[2016-09-08] MEDS: Cefepime 2 GM in Sodium Chloride 0.9% 100 ML IVPB SCH (22:17)
[2016-09-08] MEDS: Oxycodone/Acetaminophen 5/325 mg Tab PO PRN (22:30)
[2016-09-09 06:43] LABS: HEMOGLOBIN 12.8 g/dL (12.0-18.0); MEAN CELL VOLUME 91.5 fl (80.0-94.0); MEAN CORPUSCULAR HEMOGLOBIN 29.6 pg (27.0-31.0); MEAN CORPUSCULAR HGB CONC 32.4 g/dL (33.0-37.0); RBC 4.31 Mil/uL (4.40-5.90); RED CELL DISTRIBUTION WIDTH 15.6 % (11.5-14.5)
[2016-09-09 06:58] LABS: BLOOD UREA NITROGEN 21 mg/dl (9-20); GFR AFRICAN-AMERICAN > 60; GFR NON-AFRICAN AMERICAN > 60
[2016-09-09] MEDS: Cefepime 2 GM in Sodium Chloride 0.9% 100 ML IVPB SCH (07:01)
[2016-09-09] MEDS: Metoprolol Succinate 100 mg XL Tab PO SCH (09:00)
[2016-09-09] MEDS: Pantoprazole 40 mg EC Tab PO SCH (09:00)
--- NOTE | 2016-09-09 10:33 | CP.PCM.HP ---
History of Present Illness - History of Present Illness History of Present Illness: 85 yr old M admitted to TCU for IV PT/OT and IV antibiotics for acute LLE cellulitis. Patient has PMHx of HTN, Afib, HLD, and chronic back pain. Patient was discharged from med/surg after treatment of SIRS which resolved. Patient has remained afebrile and leukocytosis has resolved. No of DVT evidence on LLE Duplex. Patient is being treated with IV antibiotics with mild improvement of LLE cellulitis. ID is on board and appreciated. Patient is tolerating PT, PO diet. Present on Admission - Present on Admission Any Indicators Present on Admission: No History of DVT/PE: No Urinary Catheter: No Decubitus Ulcer Present: No Review of Systems - Review of Systems All systems: reviewed and no additional remarkable complaints except (for what is mentioned in the HPI) Past Patient History - Past Medical History & Family History Past Medical History?: Yes - Past Social History Smoking Status: Former Smoker - CARDIAC Hx Atrial Fibrillation: Yes Hx Hypercholesterolemia: Yes Hx Hypertension: Yes - PULMONARY Hx Respiratory Disorders: No Hx Pneumonia: Yes - NEUROLOGICAL Hx Neurological Disorder: No - HEENT Hx HEENT Problems: Yes Hx Cataracts: Yes - RENAL Hx Chronic Kidney Disease: No - ENDOCRINE/METABOLIC Hx Endocrine Disorders: No - HEMATOLOGICAL/ONCOLOGICAL Hx Blood Disorders: No - INTEGUMENTARY Hx Dermatological Problems: No - MUSCULOSKELETAL/RHEUMATOLOGICAL Hx Arthritis: Yes - GASTROINTESTINAL Hx Gastrointestinal Disorders: No - GENITOURINARY/GYNECOLOGICAL Hx Genitourinary Disorders: Yes Hx Prostate Problems: Yes (BPH) - PSYCHIATRIC Hx Anxiety: Yes - SURGICAL HISTORY Hx Surgeries: Yes - ANESTHESIA Hx Anesthesia: Yes Hx Anesthesia Reactions: No Hx Malignant Hyperthermia: No Meds Allergies/Adverse Reactions: Allergies Allergy/AdvReac Type Severity Reaction Status Date / Time No Known Allergies Allergy Verified 07/11/16 15:40 Physical Exam - Constitutional Appears: Non-toxic, No Acute Distress, Older Than Stated Age - Head Exam Head Exam: ATRAUMATIC, NORMOCEPHALIC - Eye Exam Eye Exam: EOMI, PERRL - ENT Exam ENT Exam: Mucous Membranes Moist - Neck Exam Neck exam: Positive for: Full Rom. Negative for: Lymphadenopathy - Respiratory Exam Respiratory Exam: Clear to Auscultation Bilateral, NORMAL BREATHING PATTERN - Cardiovascular Exam Cardiovascular Exam: REGULAR RHYTHM, +S1, +S2 - GI/Abdominal Exam GI & Abdominal Exam: Normal Bowel Sounds, Soft (obese). absent: Distended, Tenderness - Extremities Exam Extremities exam: Positive for: full ROM, normal capillary refill, pedal edema ( +1 pitting of RLE, +2 pitting of LLE ; verruca vulgaris on left posterior ankle and right lateral foot- non tender/non erythematous/no drainage; b/l LE hyperpigmentation), tenderness (of LLE from knee to above ankle, with erythema and warmth improved compared to yesterday), pedal pulses present - Back Exam Back exam: absent: CVA tenderness (L), CVA tenderness (R) - Neurological Exam Neurological exam: Alert, CN II-XII Intact, Oriented x3 - Psychiatric Exam Psychiatric exam: Normal Affect, Normal Mood - Skin Skin Exam: Dry, Intact, Warm Results - Vital Signs Recent Vital Signs: Last Vital Signs Temp 97.7 F 09/09/16 08:26 Pulse 77 09/09/16 09:00 Resp 20 09/09/16 08:26 BP 168/84 H 09/09/16 09:00 Pulse Ox 99 09/09/16 08:26 - Labs Result Diagrams: 09/09/16 05:30 09/09/16 05:30 Labs: Laboratory Results - last 24 hr 09/09/16 09/09/16 05:30 05:30 WBC 8.0 RBC 4.31 L Hgb 12.8 Hct 39.4 MCV 91.5 MCH 29.6 MCHC 32.4 L RDW 15.6 H Plt Count 211 Sodium 139 Potassium 4.0 Chloride 103 Carbon Dioxide 28 Anion Gap 12 BUN 21 H Creatinine 0.8 Est GFR ( Amer) > 60 Est GFR (Non-Af Amer) > 60 Random Glucose 85 Calcium 9.0 Assessment & Plan - Assessment and Plan (Free Text) Assessment: 85 yr old M admitted to TCU for IV PT/OT and IV antibiotics for acute LLE cellulitis. Patient has PMHx of HTN, Afib, HLD, and chronic back pain. Patient is afebrile and leukocytosis has resolved. No of DVT evidence on LLE Duplex. Patient is being treated with IV antibiotics with mild improvement of LLE cellulitis. ID is on board and appreciated. Patient is tolerating PT, PO diet. 1) LLE cellulitis -stable, afebrile, leukocytosis resolved, Lactate 0.8 -ID consult appreciated-Dr. Bernard: will follow recommendations, keep vanco trough < 15 -discontinue Cefepime -Day 3 Vancomycin 750mg PO Q12H -Tylenol 650mg PO Q6H PRN Fever -CXR: no active disease, no change compared to prior CXR -BNP wnl, troponin neg x 2, procalcitonin wnl, 2x BCx no growth x 72hrs, UCx neg , mycolasma IgM neg/IgG high -LLE Duplex: no evidence of DVT -f/u urine legionella 2) HTN -Controlled -Echo performed on 07/11/16 revealed mild concentric LVH with normal LVEF. Grade- I abnormal relaxation was also detected. -EKG sinus rhythm with no acute ischemic changes -adjusted Lisinopril 40mg Daily (Home Med) -continue rest of home meds: Metoprolol 100mg PO Daily, Hydrochlorothiazide 25mg PO Daily -monitor BP 3) Paroxysmal Afib, chronic -Rate controlled -continue Metoprolol 100mg PO daily, Eliquis 2.5mg PO BID for anticoagulation 4) Hyperlipidemia -Well controlled -Last lipid panel total chol:138, LDL: 72, HDL: 40 -Continue Atorvastatin 20mg PO QHS (Home Med) 5) BPH -Asymptomatic -Finasteride 5mg PO Daily (Home Med) -Tamsulosin 0.4mg PO Daily (Home Med) 6) Chronic back pain -Gabapentin 300mg PO TID (Home Med) 7) DVT Prophylaxis -Eliquis 2.5mg PO BID for anticoagulation (Home Med) -SCDs - Date & Time Date: 09/09/16 Time: 07:20
[2016-09-09] MEDS: Oxycodone/Acetaminophen 5/325 mg Tab PO PRN (11:31)
[2016-09-10] MEDS: Pantoprazole 40 mg EC Tab PO SCH (09:10)
[2016-09-10] MEDS: Metoprolol Succinate 100 mg XL Tab PO SCH (09:11)
[2016-09-10] MEDS ORDERED: POLYETHYLENE GLYCOL 3350 17 GM/Dose PACKET PO ONE (10:30)
--- NOTE | 2016-09-10 11:23 | CP.PCM.PN ---
Subjective - Date & Time of Evaluation Date of Evaluation: 09/10/16 Time of Evaluation: 11:23 - Subjective Subjective: ID note- Pt. seen and examined today. He is in good spirits and states his left leg is less red and less swollen. he only c/o lower back pain and states he does have disk disease and has had back surgeries in the past. Objective - Vital Signs/Intake and Output Vital Signs (last 24 hours): Temp Pulse Resp BP Pulse Ox 98.1 F 73 20 161/91 H 96 09/10/16 08:42 09/10/16 09:11 09/10/16 08:42 09/10/16 09:11 09/10/16 08:42 - Medications Medications: Current Medications Acetaminophen (Tylenol 325mg Tab) 650 mg PO Q6 PRN PRN Reason: Fever >100.4 F Apixaban (Eliquis) 2.5 mg PO BID [facility] PRN Reason: Protocol Last Admin: 09/10/16 09:11 Dose: 2.5 mg Aspirin (Ecotrin) 81 mg PO DAILY [facility] Last Admin: 09/10/16 09:11 Dose: 81 mg Atorvastatin Calcium (Lipitor) 20 mg PO HS [facility] Last Admin: 09/09/16 21:06 Dose: 20 mg Finasteride (Proscar) 5 mg PO DAILY [facility] Last Admin: 09/10/16 09:11 Dose: 5 mg Gabapentin (Neurontin) 300 mg PO TID [facility] Last Admin: 09/10/16 09:11 Dose: 300 mg Hydrochlorothiazide (Hydrodiuril) 25 mg PO DAILY [facility] Last Admin: 09/10/16 09:11 Dose: 25 mg Vancomycin HCl 750 mg/ Sodium (Chloride) 250 mls @ 166.667 mls/hr IVPB Q12 [facility] Last Admin: 09/10/16 09:14 Dose: 166.667 mls/hr Lisinopril (Zestril) 40 mg PO DAILY [facility] Last Admin: 09/10/16 09:11 Dose: 40 mg Loratadine (Claritin) 10 mg PO DAILY [facility] Last Admin: 09/10/16 09:12 Dose: 10 mg Metoprolol Succinate (Toprol Xl) 100 mg PO DAILY [facility] Last Admin: 09/10/16 09:11 Dose: 100 mg Oxycodone/Acetaminophen (Percocet 5/325 Mg Tab) 1 tab PO Q6 PRN PRN Reason: Pain, moderate (4-7) Stop: 09/11/16 15:30 Last Admin: 09/09/16 11:31 Dose: 1 tab Oxymetazoline HCl (Nasal Decongestant 15 Ml) 1 spr NS Q12 PRN PRN Reason: Nasal congestion Pantoprazole Sodium (Protonix Ec Tab) 40 mg PO DAILY [facility] Last Admin: 09/10/16 09:10 Dose: 40 mg Sertraline HCl (Zoloft) 100 mg PO DAILY [facility] Last Admin: 09/10/16 09:11 Dose: 100 mg Sodium Chloride ([place] Nasal [place]) 2 sprays PB Q4 PRN PRN Reason: Nasal congestion Tamsulosin HCl (Flomax) 0.4 mg PO DAILY [facility] Last Admin: 09/10/16 09:11 Dose: 0.4 mg - Labs Labs: - Additional Findings Additional findings: - Constitutional Appears: No Acute Distress - Head Exam Head Exam: ATRAUMATIC - Eye Exam Eye Exam: EOMI, PERRL - ENT Exam ENT Exam: Normal Oropharynx - Respiratory Exam Respiratory Exam: NORMAL BREATHING PATTERN Additional comments: good breath sounds b/l no wheezing no rhonchi - Cardiovascular Exam Additional comments: irregularly irregular - GI/Abdominal Exam GI & Abdominal Exam: Normal Bowel Sounds, Soft Additional comments: NT, ND - Extremities Exam Additional comments: LLE erythema almost resolved, minimal warmth to touch edema is also less - Neurological Exam Neurological exam: Alert, Oriented x 3 Laboratory Results - last 72 hr 09/09/16 09/09/16 05:30 05:30 WBC 8.0 RBC 4.31 L Hgb 12.8 Hct 39.4 MCV 91.5 MCH 29.6 MCHC 32.4 L RDW 15.6 H Plt Count 211 Sodium 139 Potassium 4.0 Chloride 103 Carbon Dioxide 28 Anion Gap 12 BUN 21 H Creatinine 0.8 Est GFR ( Amer) > 60 Est GFR (Non-Af Amer) > 60 Random Glucose 85 Calcium 9.0 Microbiology 09/05/16 08:16 Urine Urine Culture - Final No Growth (<1,000 CFU/ML) 09/07/16 11:20 Blood Blood Culture - Preliminary 09/07/16 11:20 Blood NO GROWTH AFTER 3 DAYS 09/05/16 21:40 Blood-Venous Blood Culture - Preliminary 09/05/16 21:40 Blood-Venous NO GROWTH AFTER 4 DAYS 09/05/16 21:10 Blood-Venous Blood Culture - Preliminary 09/05/16 21:10 Blood-Venous NO GROWTH AFTER 4 DAYS Assessment and Plan (1) Cellulitis of left lower extremity Status: Acute (2) Lower extremity edema Status: Acute (3) Hypertension Status: Chronic - Assessment and Plan (Free Text) Assessment: A/P- 85 year old male with multiple medical conditions [facility] was found to have leukocytosis and b/l LE edema nad LLE cellulitis. transferred to tcu by primary team to get PT and rehab and complete his abx therapy as well. improved clinically afebrile Leukocytosis has resolved. blood cx- neg x 2 urine cx- neg LE US report- neg for dvt plan- advise to continue with IV vancomycin for the LLE cellulitis. day #6. continue with vanco for one more day. can be switched to oral abx namely bactrim 1 TAb BID for 7 dasy starting tomm. keep LLE elevated while in bed. lower back pain and discomfort to be addressed by the family practice team. all above d/w pt. at length and he verbalzies full understanding of all above.
--- NOTE | 2016-09-10 12:28 | CP.PCM.PN ---
Subjective - Date & Time of Evaluation Date of Evaluation: 09/10/16 Time of Evaluation: 08:20 - Subjective Subjective: Patient seen and examined at bedside, in no acute distress. Reports he is tolerating PT. Left lower extremity pain, swelling and erythema persists but has improved. Denies chest pain, SOB, weakness or dizziness. Objective - Vital Signs/Intake and Output Vital Signs (last 24 hours): Temp Pulse Resp BP Pulse Ox 98.1 F 73 20 161/91 H 96 09/10/16 08:42 09/10/16 09:11 09/10/16 08:42 09/10/16 09:11 09/10/16 08:42 - Medications Medications: Current Medications Acetaminophen (Tylenol 325mg Tab) 650 mg PO Q6 PRN PRN Reason: Fever >100.4 F Apixaban (Eliquis) 2.5 mg PO BID [facility] PRN Reason: Protocol Last Admin: 09/10/16 09:11 Dose: 2.5 mg Aspirin (Ecotrin) 81 mg PO DAILY [facility] Last Admin: 09/10/16 09:11 Dose: 81 mg Atorvastatin Calcium (Lipitor) 20 mg PO HS [facility] Last Admin: 09/09/16 21:06 Dose: 20 mg Finasteride (Proscar) 5 mg PO DAILY [facility] Last Admin: 09/10/16 09:11 Dose: 5 mg Gabapentin (Neurontin) 300 mg PO TID [facility] Last Admin: 09/10/16 12:08 Dose: 300 mg Hydrochlorothiazide (Hydrodiuril) 25 mg PO DAILY [facility] Last Admin: 09/10/16 09:11 Dose: 25 mg Vancomycin HCl 750 mg/ Sodium (Chloride) 250 mls @ 166.667 mls/hr IVPB Q12 [facility] Last Admin: 09/10/16 09:14 Dose: 166.667 mls/hr Lisinopril (Zestril) 40 mg PO DAILY [facility] Last Admin: 09/10/16 09:11 Dose: 40 mg Loratadine (Claritin) 10 mg PO DAILY [facility] Last Admin: 09/10/16 09:12 Dose: 10 mg Metoprolol Succinate (Toprol Xl) 100 mg PO DAILY [facility] Last Admin: 09/10/16 09:11 Dose: 100 mg Oxycodone/Acetaminophen (Percocet 5/325 Mg Tab) 1 tab PO Q6 PRN PRN Reason: Pain, moderate (4-7) Stop: 09/11/16 15:30 Last Admin: 09/09/16 11:31 Dose: 1 tab Oxymetazoline HCl (Nasal Decongestant 15 Ml) 1 spr NS Q12 PRN PRN Reason: Nasal congestion Pantoprazole Sodium (Protonix Ec Tab) 40 mg PO DAILY [facility] Last Admin: 09/10/16 09:10 Dose: 40 mg Sertraline HCl (Zoloft) 100 mg PO DAILY [facility] Last Admin: 09/10/16 09:11 Dose: 100 mg Sodium Chloride ([place] Nasal [place]) 2 sprays PB Q4 PRN PRN Reason: Nasal congestion Tamsulosin HCl (Flomax) 0.4 mg PO DAILY [facility] Last Admin: 09/10/16 09:11 Dose: 0.4 mg - Labs Labs: 09/09/16 05:30 09/09/16 05:30 - Constitutional Appears: Non-toxic, No Acute Distress, Older Than Stated Age - Head Exam Head Exam: ATRAUMATIC, NORMOCEPHALIC - Eye Exam Eye Exam: EOMI, PERRL - ENT Exam ENT Exam: Mucous Membranes Moist - Neck Exam Neck Exam: Full ROM. absent: Lymphadenopathy - Respiratory Exam Respiratory Exam: Clear to Ausculation Bilateral, NORMAL BREATHING PATTERN - Cardiovascular Exam Cardiovascular Exam: REGULAR RHYTHM, +S1, +S2 - GI/Abdominal Exam GI & Abdominal Exam: Soft (obese), Normal Bowel Sounds. absent: Distended, Tenderness - Extremities Exam Extremities Exam: Full ROM (mild tinea pedis between toes), Normal Capillary Refill, Pedal Edema (+2 pitting of left LE , warmth and blanching erythema improving; +1 of right LE), Tenderness (mild LLE) - Back Exam Back Exam: absent: CVA tenderness (L), CVA tenderness (R) - Neurological Exam Neurological Exam: Alert, Awake, CN II-XII Intact, Oriented x3 - Psychiatric Exam Psychiatric exam: Normal Affect, Normal Mood - Skin Skin Exam: Dry, Intact Assessment and Plan - Assessment and Plan (Free Text) Assessment: 85 yr old M admitted to TCU for IV PT/OT and IV antibiotics for acute LLE cellulitis. Patient has PMHx of HTN, Afib, HLD, and chronic back pain. Patient is afebrile and leukocytosis has resolved. No of DVT evidence on LLE Duplex. Patient is being treated with IV antibiotics with further mild improvement of LLE cellulitis. ID is on board and appreciated. Patient is tolerating PT, PO diet. LLE cellulitis -stable, afebrile, leukocytosis resolved, Lactate 0.8 -ID consult appreciated-Dr. Bernard: will follow recommendations, keep vanco trough < 15 -Day 4 Vancomycin 750mg PO Q12H -LLE Duplex: no evidence of DVT -continue PT/OT, f/u urine legionella Tinea Pedis -Clotrimazole 1% apply TOP BID HTN -Controlled -Echo performed on 07/11/16 revealed mild concentric LVH with normal LVEF. Grade- I abnormal relaxation was also detected. -EKG sinus rhythm with no acute ischemic changes -adjusted Lisinopril 40mg Daily, continue rest of home meds: Metoprolol 100mg PO Daily, Hydrochlorothiazide 25mg PO Daily -monitor BP Paroxysmal Afib, chronic -Rate controlled -continue Metoprolol 100mg PO daily, Eliquis 2.5mg PO BID for anticoagulation Hyperlipidemia -Well controlled -Continue Atorvastatin 20mg PO QHS (Home Med) BPH -Asymptomatic -continue Finasteride 5mg PO Daily, Tamsulosin 0.4mg PO Daily (Home Med) Chronic back pain -Gabapentin 300mg PO TID (Home Med) DVT Prophylaxis -Eliquis 2.5mg PO BID for anticoagulation (Home Med) -SCDs
[2016-09-10] MEDS: Docusate-Senna 50 mg-8.6 mg Tab PO SCH ×2 (20:30→21:42)
[2016-09-11] MEDS: Pantoprazole 40 mg EC Tab PO SCH (08:51)
[2016-09-11] MEDS: Metoprolol Succinate 100 mg XL Tab PO SCH (08:52)
[2016-09-11] MEDS: Docusate-Senna 50 mg-8.6 mg Tab PO SCH (21:19)
[2016-09-11] MEDS: Oxycodone/Acetaminophen 5/325 mg Tab PO PRN (22:12)
--- NOTE | 2016-09-11 22:34 | CP.PCM.PCO ---
Physician Communication Note - Physician Communication Note Physician Communication Note: Cellulitis continuing to improve slowly. Cont. antibiotics. Pain no worse.
[2016-09-12] MEDS: Metoprolol Succinate 100 mg XL Tab PO SCH (08:31)
[2016-09-12] MEDS: Pantoprazole 40 mg EC Tab PO SCH (08:32)
[2016-09-12] MEDS: Oxycodone/Acetaminophen 5/325 mg Tab PO PRN (13:20)
[2016-09-13] MEDS: Metoprolol Succinate 100 mg XL Tab PO SCH (09:00)
[2016-09-13] MEDS: Pantoprazole 40 mg EC Tab PO SCH (09:01)
--- NOTE | 2016-09-13 11:36 | CP.PCM.PN ---
Subjective - Date & Time of Evaluation Date of Evaluation: 09/13/16 Time of Evaluation: 12:10 - Subjective Subjective: Pt seen and examined at bedside, does not have any complaints, states leg pain is better today compared to other days. denies any nausea, vomiting. eating well. tolerating PT ok. no other complaints. Objective - Vital Signs/Intake and Output Vital Signs (last 24 hours): Temp Pulse Resp BP Pulse Ox 97.9 F 70 20 127/65 94 L 09/13/16 08:00 09/13/16 09:00 09/13/16 08:00 09/13/16 09:00 09/13/16 08:00 - Medications Medications: Current Medications Acetaminophen (Tylenol 325mg Tab) 650 mg PO Q6 PRN PRN Reason: Fever >100.4 F Apixaban (Eliquis) 2.5 mg PO BID [facility] PRN Reason: Protocol Last Admin: 09/13/16 09:00 Dose: 2.5 mg Aspirin (Ecotrin) 81 mg PO DAILY [facility] Last Admin: 09/13/16 09:01 Dose: 81 mg Atorvastatin Calcium (Lipitor) 20 mg PO HS [facility] Last Admin: 09/12/16 22:09 Dose: 20 mg Clotrimazole (Lotrimin 1% Cream) 1 applic TOP BID [facility] Last Admin: 09/13/16 09:05 Dose: 1 applic Docusate Sodium (Colace) 100 mg PO BID [facility] Last Admin: 09/13/16 08:59 Dose: 100 mg Finasteride (Proscar) 5 mg PO DAILY [facility] Last Admin: 09/13/16 09:00 Dose: 5 mg Gabapentin (Neurontin) 300 mg PO TID [facility] Last Admin: 09/13/16 09:00 Dose: 300 mg Hydrochlorothiazide (Hydrodiuril) 25 mg PO DAILY [facility] Last Admin: 09/13/16 09:01 Dose: 25 mg Vancomycin HCl 750 mg/ Sodium (Chloride) 250 mls @ 166.667 mls/hr IVPB Q12 [facility] Last Admin: 09/13/16 09:02 Dose: 166.667 mls/hr Lisinopril (Zestril) 40 mg PO DAILY [facility] Last Admin: 09/13/16 09:00 Dose: 40 mg Loratadine (Claritin) 10 mg PO DAILY [facility] Last Admin: 09/13/16 09:01 Dose: 10 mg Metoprolol Succinate (Toprol Xl) 100 mg PO DAILY [facility] Last Admin: 09/13/16 09:00 Dose: 100 mg Oxycodone/Acetaminophen (Percocet 5/325 Mg Tab) 1 tab PO Q6 PRN PRN Reason: Pain, moderate (4-7) Stop: 09/14/16 22:02 Last Admin: 09/12/16 13:20 Dose: 1 tab Oxymetazoline HCl (Nasal Decongestant 15 Ml) 1 spr NS Q12 PRN PRN Reason: Nasal congestion Pantoprazole Sodium (Protonix Ec Tab) 40 mg PO DAILY [facility] Last Admin: 09/13/16 09:01 Dose: 40 mg Sennosides (Senokot Tab) 17.2 mg PO HS [facility] Last Admin: 09/12/16 22:09 Dose: 17.2 mg Sertraline HCl (Zoloft) 100 mg PO DAILY [facility] Last Admin: 09/13/16 09:01 Dose: 100 mg Sodium Chloride ([place] Nasal [place]) 2 sprays PB Q4 PRN PRN Reason: Nasal congestion Tamsulosin HCl (Flomax) 0.4 mg PO DAILY [facility] Last Admin: 09/13/16 09:01 Dose: 0.4 mg - Labs Labs: 09/09/16 05:30 09/09/16 05:30 - Constitutional Appears: No Acute Distress - Eye Exam Eye Exam: Normal appearance - ENT Exam ENT Exam: Mucous Membranes Moist - Respiratory Exam Respiratory Exam: Clear to Ausculation Bilateral, NORMAL BREATHING PATTERN. absent: Rhonchi, Wheezes - Cardiovascular Exam Cardiovascular Exam: REGULAR RHYTHM, +S1, +S2 - GI/Abdominal Exam GI & Abdominal Exam: Soft, Normal Bowel Sounds. absent: Tenderness - Extremities Exam Extremities Exam: absent: Calf Tenderness, Pedal Edema Additional comments: lower extremity cellulites improving, not warm to touch - Neurological Exam Neurological Exam: Alert, Awake, Oriented x3 Assessment and Plan - Assessment and Plan (Free Text) Assessment: 85 yr old M PMHx of HTN, Afib, HLD, and chronic back pain admitted to TCU for IV PT/OT and IV antibiotics for acute LLE cellulitis. Patient is being treated with IV antibiotics with further mild improvement of LLE cellulitis. ID is on board and appreciated. LLE cellulitis -stable, afebrile, leukocytosis resolved, Lactate 0.8 -ID consult appreciated-Dr. Bernard: will follow recommendations -Day 6 Vancomycin 750mg PO Q12H -LLE Duplex: no evidence of DVT -continue PT/OT Tinea Pedis -Clotrimazole 1% apply TOP BID HTN -Controlled -Echo performed on 07/11/16 revealed mild concentric LVH with normal LVEF. Grade- I abnormal relaxation was also detected. -EKG sinus rhythm with no acute ischemic changes -adjusted Lisinopril 40mg Daily, continue rest of home meds: Metoprolol 100mg PO Daily, Hydrochlorothiazide 25mg PO Daily -monitor BP Paroxysmal Afib, chronic -Rate controlled -continue Metoprolol 100mg PO daily, Eliquis 2.5mg PO BID for anticoagulation Hyperlipidemia -Well controlled -Continue Atorvastatin 20mg PO QHS (Home Med) BPH -Asymptomatic -continue Finasteride 5mg PO Daily, Tamsulosin 0.4mg PO Daily (Home Med) Chronic back pain -Gabapentin 300mg PO TID (Home Med) DVT Prophylaxis -Eliquis 2.5mg PO BID for anticoagulation (Home Med) -SCDs
[2016-09-13] MEDS: Oxycodone/Acetaminophen 5/325 mg Tab PO PRN (16:06)
[2016-09-14] MEDS: Pantoprazole 40 mg EC Tab PO SCH (08:39)
[2016-09-14] MEDS: Metoprolol Succinate 100 mg XL Tab PO SCH (08:39)
--- NOTE | 2016-09-14 11:26 | CP.PCM.PN ---
Subjective - Date & Time of Evaluation Date of Evaluation: 09/14/16 Time of Evaluation: 11:25 - Subjective Subjective: ID Note- Pt. seen and examined today. remaisna febrile . pt. c/o left leg pain and swelling but the redness has almost resolved. He also c/o left lower back pain extending to back of his left leg. Objective - Vital Signs/Intake and Output Vital Signs (last 24 hours): Temp Pulse Resp BP Pulse Ox 98.1 F 70 20 131/56 L 97 09/14/16 07:50 09/14/16 08:39 09/14/16 07:50 09/14/16 08:39 09/14/16 07:50 - Medications Medications: Current Medications Acetaminophen (Tylenol 325mg Tab) 650 mg PO Q6 PRN PRN Reason: Fever >100.4 F Apixaban (Eliquis) 2.5 mg PO BID [facility] PRN Reason: Protocol Last Admin: 09/14/16 08:38 Dose: 2.5 mg Aspirin (Ecotrin) 81 mg PO DAILY [facility] Last Admin: 09/14/16 08:37 Dose: 81 mg Atorvastatin Calcium (Lipitor) 20 mg PO HS [facility] Last Admin: 09/13/16 21:24 Dose: 20 mg Clotrimazole (Lotrimin 1% Cream) 1 applic TOP BID [facility] Last Admin: 09/14/16 08:38 Dose: 1 applic Docusate Sodium (Colace) 100 mg PO BID [facility] Last Admin: 09/14/16 08:37 Dose: 100 mg Finasteride (Proscar) 5 mg PO DAILY [facility] Last Admin: 09/14/16 08:39 Dose: 5 mg Gabapentin (Neurontin) 300 mg PO TID [facility] Last Admin: 09/14/16 08:38 Dose: 300 mg Hydrochlorothiazide (Hydrodiuril) 25 mg PO DAILY [facility] Last Admin: 09/14/16 08:38 Dose: 25 mg Lisinopril (Zestril) 40 mg PO DAILY [facility] Last Admin: 09/14/16 08:39 Dose: 40 mg Loratadine (Claritin) 10 mg PO DAILY [facility] Last Admin: 09/14/16 08:36 Dose: 10 mg Metoprolol Succinate (Toprol Xl) 100 mg PO DAILY [facility] Last Admin: 09/14/16 08:39 Dose: 100 mg Oxycodone/Acetaminophen (Percocet 5/325 Mg Tab) 1 tab PO Q6 PRN PRN Reason: Pain, moderate (4-7) Stop: 09/14/16 22:02 Last Admin: 09/13/16 16:06 Dose: 1 tab Oxymetazoline HCl (Nasal Decongestant 15 Ml) 1 spr NS Q12 PRN PRN Reason: Nasal congestion Pantoprazole Sodium (Protonix Ec Tab) 40 mg PO DAILY [facility] Last Admin: 09/14/16 08:39 Dose: 40 mg Sennosides (Senokot Tab) 17.2 mg PO HS [facility] Last Admin: 09/13/16 21:24 Dose: 17.2 mg Sertraline HCl (Zoloft) 100 mg PO DAILY [facility] Last Admin: 09/14/16 08:40 Dose: 100 mg Sodium Chloride ([place] Nasal [place]) 2 sprays PB Q4 PRN PRN Reason: Nasal congestion Tamsulosin HCl (Flomax) 0.4 mg PO DAILY [facility] Last Admin: 09/14/16 08:38 Dose: 0.4 mg Trimethoprim/Sulfamethoxazole (Bactrim Ds Tab) 1 tab PO Q12 [facility] - Labs Labs: - Additional Findings Additional findings: - Constitutional Appears: No Acute Distress - Head Exam Head Exam: ATRAUMATIC - Eye Exam Eye Exam: EOMI, PERRL - ENT Exam ENT Exam: Normal Oropharynx - Respiratory Exam Respiratory Exam: NORMAL BREATHING PATTERN Additional comments: good breath sounds b/l no wheezing no rhonchi - Cardiovascular Exam Additional comments: irregularly irregular - GI/Abdominal Exam GI & Abdominal Exam: Normal Bowel Sounds, Soft Additional comments: NT, ND - Extremities Exam Additional comments: LLE erythema almost resolved, minimal warmth to touch however has edema and tenderness to touch - Neurological Exam Neurological exam: Alert, Oriented x 3 Assessment and Plan (1) Cellulitis of left lower extremity Status: Acute (2) Lower extremity edema Status: Acute (3) Hypertension Status: Chronic - Assessment and Plan (Free Text) Assessment: A/P- 85 year old male with multiple medical conditions was originally admitted to [facility] fever and sob fever was found to have leukocytosis and b/l LE edema nad LLE cellulitis. transferred to TCU by primary team to get PT and rehab and complete his abx therapy as well. afebrile Leukocytosis has resolved. blood cx- neg x 2 urine cx- neg LE US report- neg for dvt plan- advise to d/c Iv vancomycin . has already been on 9 days of this. can be switched to oral abx namely bactrim 1 TAb BID for 7 days starting tomm. keep LLE elevated while in bed. lower back pain and discomfort to be addressed by the family practice team. advise to either get CT or MRI of the lumbar spine and left leg to evaluate the cause of the pain and edema better. this was d/w Dr.Pierre Cardoza . all above d/w pt. at length and he verbalizes full understanding of all above.
--- NOTE | 2016-09-14 16:21 | RAD ---
PROCEDURE: Radiographs of the Lumbar Spine. Flexion and extension lateral views included HISTORY: lumbar sacral region and extremity COMPARISON: No prior. FINDINGS: BONES: The vertebral bodies are maintained in height. The patient is status post posterior fixation at L 3-4 with pedicle screws and vertical rods. There is dextroscoliotic curvature of the lumbar spine. Asymmetric narrowing of the left side of the L3-4 disc space is evident. DISC SPACES: There is multilevel degenerative disc disease with disc space narrowing and anterior osteophytes. There is grade 1 retrolisthesis at L 2-3, stable with flexion and extension. OTHER FINDINGS: None. IMPRESSION: Posterior fixation L3-4. Grade 1 retrolisthesis L2-3, stable with flexion and extension. Multilevel degenerative disc disease. Dextroscoliosis.
[2016-09-14] MEDS: Oxycodone/Acetaminophen 5/325 mg Tab PO PRN (19:34)
[2016-09-14] MEDS: Tmp-Smz 800 mg-160 mg DS Tab PO SCH (21:00)
[2016-09-15] MEDS: Metoprolol Succinate 100 mg XL Tab PO SCH (08:46)
[2016-09-15] MEDS: Tmp-Smz 800 mg-160 mg DS Tab PO SCH ×2 (08:47→21:19)
[2016-09-15] MEDS: Pantoprazole 40 mg EC Tab PO SCH (08:48)
[2016-09-15] MEDS: Oxycodone/Acetaminophen 5/325 mg Tab PO PRN ×2 (10:55→21:24)
--- NOTE | 2016-09-15 14:11 | CP.PCM.PN ---
Subjective - Date & Time of Evaluation Date of Evaluation: 09/15/16 Time of Evaluation: 12:30 - Subjective Subjective: Pt seen and evaluated at bedside, reports back pain and lower extremity, this is a chronic problem, for which he has had previous surgery for which symptoms did not resolve, evidence of surgery noted in lumbar xray obtained a day ago. tolerating phyiscal therapy well. Nurses and consults noted reviewed. Objective - Vital Signs/Intake and Output Vital Signs (last 24 hours): Temp Pulse Resp BP Pulse Ox 97.7 F 92 H 20 138/80 99 09/15/16 07:57 09/15/16 08:49 09/15/16 07:57 09/15/16 08:49 09/15/16 07:57 - Medications Medications: Current Medications Acetaminophen (Tylenol 325mg Tab) 650 mg PO Q6 PRN PRN Reason: Fever >100.4 F Apixaban (Eliquis) 2.5 mg PO BID [facility] PRN Reason: Protocol Last Admin: 09/15/16 08:47 Dose: 2.5 mg Aspirin (Ecotrin) 81 mg PO DAILY [facility] Last Admin: 09/15/16 08:48 Dose: 81 mg Atorvastatin Calcium (Lipitor) 20 mg PO HS [facility] Last Admin: 09/14/16 21:00 Dose: 20 mg Clotrimazole (Lotrimin 1% Cream) 1 applic TOP BID [facility] Last Admin: 09/15/16 08:49 Dose: 1 applic Docusate Sodium (Colace) 100 mg PO BID [facility] Last Admin: 09/15/16 08:47 Dose: 100 mg Finasteride (Proscar) 5 mg PO DAILY [facility] Last Admin: 09/15/16 08:48 Dose: 5 mg Gabapentin (Neurontin) 300 mg PO TID [facility] Last Admin: 09/15/16 08:46 Dose: 300 mg Hydrochlorothiazide (Hydrodiuril) 25 mg PO DAILY [facility] Last Admin: 09/15/16 08:48 Dose: 25 mg Lisinopril (Zestril) 40 mg PO DAILY [facility] Last Admin: 09/15/16 08:49 Dose: 40 mg Loratadine (Claritin) 10 mg PO DAILY [facility] Last Admin: 09/15/16 08:48 Dose: 10 mg Metoprolol Succinate (Toprol Xl) 100 mg PO DAILY [facility] Last Admin: 09/15/16 08:46 Dose: 100 mg Oxycodone/Acetaminophen (Percocet 5/325 Mg Tab) 1 tab PO Q6 PRN PRN Reason: Pain, moderate (4-7) Stop: 09/18/16 10:55 Oxymetazoline HCl (Nasal Decongestant 15 Ml) 1 spr NS Q12 PRN PRN Reason: Nasal congestion Pantoprazole Sodium (Protonix Ec Tab) 40 mg PO DAILY [facility] Last Admin: 09/15/16 08:48 Dose: 40 mg Sennosides (Senokot Tab) 17.2 mg PO HS [facility] Last Admin: 09/14/16 21:00 Dose: 17.2 mg Sertraline HCl (Zoloft) 100 mg PO DAILY [facility] Last Admin: 09/15/16 08:51 Dose: 100 mg Sodium Chloride ([place] Nasal [place]) 2 sprays PB Q4 PRN PRN Reason: Nasal congestion Tamsulosin HCl (Flomax) 0.4 mg PO DAILY [facility] Last Admin: 09/15/16 08:46 Dose: 0.4 mg Tramadol HCl (Ultram) 100 mg PO Q6 PRN PRN Reason: Pain, severe (8-10) Trimethoprim/Sulfamethoxazole (Bactrim Ds Tab) 1 tab PO Q12 [facility] Last Admin: 09/15/16 08:47 Dose: 1 tab - Labs Labs: 09/09/16 05:30 09/09/16 05:30 - Constitutional Appears: Non-toxic, No Acute Distress - Head Exam Head Exam: NORMOCEPHALIC - Eye Exam Eye Exam: Normal appearance Pupil Exam: NORMAL ACCOMODATION - ENT Exam ENT Exam: Mucous Membranes Moist - Respiratory Exam Respiratory Exam: Clear to Ausculation Bilateral, NORMAL BREATHING PATTERN. absent: Wheezes - Cardiovascular Exam Cardiovascular Exam: REGULAR RHYTHM, +S1, +S2 - GI/Abdominal Exam GI & Abdominal Exam: Soft, Normal Bowel Sounds. absent: Tenderness - Extremities Exam Extremities Exam: absent: Calf Tenderness Additional comments: LLE edema and erythema has improved greatly, not warm to touch, no drainage multiple warts noted on foot bilaterally - Neurological Exam Neurological Exam: Alert, Awake, Oriented x3 Assessment and Plan - Assessment and Plan (Free Text) Assessment: 85 yr old M PMHx of HTN, Afib, HLD, and chronic back pain admitted to TCU for IV PT/OT and IV antibiotics for acute LLE cellulitis. Patient is being treated PO antibiotics with improvement of LLE cellulitis. ID is on board and appreciated. LLE cellulitis -stable, afebrile, leukocytosis resolved, Lactate 0.8 -ID consult appreciated-Dr. Bernard: will follow recommendations -On day 2 of bactrim DS -LLE Duplex: no evidence of DVT -continue PT/OT Chronic back and LLE Pain -Xrays obtained on 09/14/16 shows evidence of asymmetric narrowing of the left side of the L3-4 disc space, multilevel disc degenerative dx -No evidence of acute changes Tinea Pedis -Clotrimazole 1% apply TOP BID HTN -Controlled -Echo performed on 07/11/16 revealed mild concentric LVH with normal LVEF. Grade- I abnormal relaxation was also detected. -EKG sinus rhythm with no acute ischemic changes -adjusted Lisinopril 40mg Daily, continue rest of home meds: Metoprolol 100mg PO Daily, Hydrochlorothiazide 25mg PO Daily -monitor BP Paroxysmal Afib, chronic -Rate controlled -continue Metoprolol 100mg PO daily, Eliquis 2.5mg PO BID for anticoagulation Hyperlipidemia -Well controlled -Continue Atorvastatin 20mg PO QHS (Home Med) BPH -Asymptomatic -continue Finasteride 5mg PO Daily, Tamsulosin 0.4mg PO Daily (Home Med) Chronic back pain -Gabapentin 300mg PO TID (Home Med) DVT Prophylaxis -Eliquis 2.5mg PO BID for anticoagulation (Home Med) -SCDs
[2016-09-16] MEDS: Oxycodone/Acetaminophen 5/325 mg Tab PO PRN (08:56)
[2016-09-16] MEDS: Tmp-Smz 800 mg-160 mg DS Tab PO SCH ×2 (08:56→22:51)
[2016-09-16] MEDS: Metoprolol Succinate 100 mg XL Tab PO SCH (08:57)
[2016-09-16] MEDS: Pantoprazole 40 mg EC Tab PO SCH (08:57)
--- NOTE | 2016-09-16 23:12 | CP.PCM.PN ---
Subjective - Date & Time of Evaluation Date of Evaluation: 09/16/16 Time of Evaluation: 14:00 - Subjective Subjective: 85 year old male patient with PMHx of HTN, Afib, HLD, and chronic back pain seen at bedside in TCU complaining of pain in his left lower leg. Patient states that he has had this pain for the past few months. Patient states that this pain has been present for years. Patient states that the pain starts in his back and travels down his entire leg into his foot. Patient describes the pain as sharp, shooting, pain comparable to an electric shock. Patient denies N/ V/F/C/D/SOB. No other pedal complaints at this time. Objective - Vital Signs/Intake and Output Vital Signs (last 24 hours): Temp Pulse Resp BP Pulse Ox 97.8 F 67 20 94/54 L 94 L 09/16/16 21:40 09/16/16 21:40 09/16/16 21:40 09/16/16 21:40 09/16/16 21:40 - Medications Medications: Current Medications Acetaminophen (Tylenol 325mg Tab) 650 mg PO Q6 PRN PRN Reason: Fever >100.4 F Apixaban (Eliquis) 2.5 mg PO BID [facility] PRN Reason: Protocol Last Admin: 09/16/16 16:50 Dose: 2.5 mg Aspirin (Ecotrin) 81 mg PO DAILY [facility] Last Admin: 09/16/16 08:59 Dose: 81 mg Atorvastatin Calcium (Lipitor) 20 mg PO HS [facility] Last Admin: 09/16/16 22:50 Dose: 20 mg Clotrimazole (Lotrimin 1% Cream) 1 applic TOP BID [facility] Last Admin: 09/16/16 16:50 Dose: 1 applic Docusate Sodium (Colace) 100 mg PO BID [facility] Last Admin: 09/16/16 16:50 Dose: 100 mg Finasteride (Proscar) 5 mg PO DAILY [facility] Last Admin: 09/16/16 08:57 Dose: 5 mg Gabapentin (Neurontin) 300 mg PO TID [facility] Last Admin: 09/16/16 16:50 Dose: 300 mg Hydrochlorothiazide (Hydrodiuril) 25 mg PO DAILY [facility] Last Admin: 09/16/16 08:57 Dose: 25 mg Lisinopril (Zestril) 40 mg PO DAILY [facility] Last Admin: 09/16/16 08:59 Dose: 40 mg Loratadine (Claritin) 10 mg PO DAILY [facility] Last Admin: 09/16/16 08:57 Dose: 10 mg Metoprolol Succinate (Toprol Xl) 100 mg PO DAILY [facility] Last Admin: 09/16/16 08:57 Dose: 100 mg Oxycodone/Acetaminophen (Percocet 5/325 Mg Tab) 1 tab PO Q6 PRN PRN Reason: Pain, moderate (4-7) Stop: 09/18/16 10:55 Last Admin: 09/16/16 08:56 Dose: 1 tab Oxymetazoline HCl (Nasal Decongestant 15 Ml) 1 spr NS Q12 PRN PRN Reason: Nasal congestion Pantoprazole Sodium (Protonix Ec Tab) 40 mg PO DAILY [facility] Last Admin: 09/16/16 08:57 Dose: 40 mg Sennosides (Senokot Tab) 17.2 mg PO HS [facility] Last Admin: 09/16/16 22:51 Dose: 17.2 mg Sertraline HCl (Zoloft) 100 mg PO DAILY [facility] Last Admin: 09/16/16 08:57 Dose: 100 mg Sodium Chloride ([place] Nasal [place]) 2 sprays PB Q4 PRN PRN Reason: Nasal congestion Tamsulosin HCl (Flomax) 0.4 mg PO DAILY [facility] Last Admin: 09/16/16 08:57 Dose: 0.4 mg Tramadol HCl (Ultram) 100 mg PO Q6 PRN PRN Reason: Pain, severe (8-10) Last Admin: 09/16/16 10:45 Dose: 100 mg Trimethoprim/Sulfamethoxazole (Bactrim Ds Tab) 1 tab PO Q12 [facility] Last Admin: 09/16/16 22:51 Dose: 1 tab - Labs Labs: 09/09/16 05:30 09/09/16 05:30 - Constitutional Appears: Well, Non-toxic, No Acute Distress - Extremities Exam Additional comments: Vasc: DP and PT pulses palpable b/l. CFT <3 seconds to all digits. TG warm to warm. +2 pitting edema to LLE, +1 pitting edema to RLE. Neuro: Gross sensation intact Derm: No open lesions noted Ortho: tenderness to palpation BLE, L>R - Neurological Exam Neurological Exam: Alert, Awake, Oriented x3 - Psychiatric Exam Psychiatric exam: Normal Affect, Normal Mood Assessment and Plan - Assessment and Plan (Free Text) Assessment: 85 year old male patient with PMHx chronic back pain, HTN, HLD, afib with bilateral leg pain likely secondary to radiculopathy Plan: Patient seen and evaluated at bedside Charts, labs, vitals reviewed = afebrile, WBC WNL @ 8.0 LLE Duplex reviewed: No sonographic or Doppler evidence for DVT in LLE Continue with compression stockings Informed patient that leg pain likely secondary to chronic back issues Stable per podiatry standpoint Podiatry will sign off on this patient, please reconsult again as needed.
[2016-09-17 08:39] VITALS: TEMP 97.5; O2SAT 99
[2016-09-17] MEDS: Oxycodone/Acetaminophen 5/325 mg Tab PO PRN (09:02)
[2016-09-17] MEDS: Tmp-Smz 800 mg-160 mg DS Tab PO SCH (09:04)
[2016-09-17] MEDS: Metoprolol Succinate 100 mg XL Tab PO SCH (09:13)
[2016-09-17] MEDS: Pantoprazole 40 mg EC Tab PO SCH (09:13)
--- NOTE | 2016-09-17 12:04 | CP.PCM.DIS ---
<Nara Gustafson - Last Filed: 09/17/16 12:26> Provider - Provider Date of Admission: 09/08/16 15:50 Attending physician: Kallie Turcios MD Time Spent in preparation of Discharge (in minutes): 30 Diagnosis - Discharge Diagnosis (1) Cellulitis of left lower extremity Status: Acute Priority: Medium Hospital Course - Lab Results Lab Results: Most Recent Lab Values WBC 8.0 K/uL (4.8-10.8) 09/09/16 05:30 RBC 4.31 Mil/uL (4.40-5.90) L 09/09/16 05:30 Hgb 12.8 g/dL (12.0-18.0) 09/09/16 05:30 Hct 39.4 % (35.0-51.0) 09/09/16 05:30 MCV 91.5 fl (80.0-94.0) 09/09/16 05:30 MCH 29.6 pg (27.0-31.0) 09/09/16 05:30 MCHC 32.4 g/dL (33.0-37.0) L 09/09/16 05:30 RDW 15.6 % (11.5-14.5) H 09/09/16 05:30 Plt Count 211 K/uL (130-400) 09/09/16 05:30 Sodium 139 mmol/l (132-148) 09/09/16 05:30 Potassium 4.0 MMOL/L (3.6-5.0) 09/09/16 05:30 Chloride 103 mmol/L (98-107) 09/09/16 05:30 Carbon Dioxide 28 mmol/L (22-30) 09/09/16 05:30 Anion Gap 12 (10-20) 09/09/16 05:30 BUN 21 mg/dl (9-20) H 09/09/16 05:30 Creatinine 0.8 mg/dL (0.8-1.5) 09/09/16 05:30 Est GFR ( Amer) > 60 09/09/16 05:30 Est GFR (Non-Af Amer) > 60 09/09/16 05:30 Random Glucose 85 mg/dL (75-110) 09/09/16 05:30 Calcium 9.0 mg/dL (8.4-10.2) 09/09/16 05:30 - Hospital Course Hospital Course: Pt is a 85 y/o who is admitted for lower extremity cellulites, was discharged to TCU to complete antibiotic course and physical therapy. Pt tolerated rehab well, completed course of vancomycin and switched to bactrim DS for which he is being sent home on for 3 more days. Pt also advised to follow up with podiatry regarding his warts. Discharge Exam - Head Exam Head Exam: NORMOCEPHALIC - Eye Exam Eye Exam: Normal appearance - ENT Exam ENT Exam: Mucous Membranes Moist - Respiratory Exam Respiratory Exam: NORMAL BREATHING PATTERN - Cardiovascular Exam Cardiovascular Exam: REGULAR RHYTHM, +S1, +S2 - GI/Abdominal Exam GI & Abdominal Exam: Normal Bowel Sounds, Soft. absent: Tenderness - Extremities Exam Additional comments: LLE: erythema greatly improved, edema improved. pt seen wearing compression stalking today - Neurological Exam Neurological exam: Alert, CN II-XII Intact, Oriented x3 Discharge Plan - Discharge Medications Prescriptions: Apixaban [Eliquis] 2.5 mg PO BID #30 tab Atorvastatin [Lipitor] 20 mg PO HS #30 tab Docusate [Colace] 100 mg PO BID #30 cap Finasteride [Proscar] 5 mg PO DAILY #30 tab Gabapentin [Neurontin] 300 mg PO TID #30 cap hydroCHLOROthiazide [Hydrodiuril] 25 mg PO DAILY #30 tab Lisinopril [Zestril] 40 mg PO DAILY #30 tab Loratadine [Claritin] 10 mg PO DAILY #30 tab Metoprolol Succinate [Toprol XL] 100 mg PO DAILY #30 tab oxyCODONE/Acetaminophen [Percocet 5/325 mg Tab] 1 tab PO Q6 PRN #30 tab PRN Reason: Pain, Moderate (4-7) Oxymetazoline HCl [Nasal Decongestant 15 ml] 1 spr NS Q12 PRN #30 bottle PRN Reason: Nasal Congestion Sertraline [Zoloft] 100 mg PO DAILY #30 tab Sodium Chloride Nasal [place] [[place] Nasal [place]] 2 sprays PB Q4 PRN #30 bottle PRN Reason: Nasal Congestion Sulfamethoxazole/Trimethoprim [Bactrim DS Tab] 1 tab PO Q12 #7 tab Tamsulosin [Flomax] 0.4 mg PO DAILY #30 cap - Follow Up Plan Condition: GOOD Disposition: HOME/ ROUTINE Instructions: Cellulitis (DC), Chronic Pain (DC) Additional Instructions: Please follow up with your PCP at [facility] for follow up on 09/23/[address] Gutierrez Please call to schedule appointment with podiatry clinic for wart removal; the number to call is [phone] Please take all medications as prescribe continue to use compression socks <Sabra Silva - Last Filed: 09/18/16 08:35> Provider - Provider Date of Admission: 09/08/16 15:50 Attending physician: Kallie Turcios MD Hospital Course - Lab Results Lab Results: Most Recent Lab Values WBC 8.0 K/uL (4.8-10.8) 09/09/16 05:30 RBC 4.31 Mil/uL (4.40-5.90) L 09/09/16 05:30 Hgb 12.8 g/dL (12.0-18.0) 09/09/16 05:30 Hct 39.4 % (35.0-51.0) 09/09/16 05:30 MCV 91.5 fl (80.0-94.0) 09/09/16 05:30 MCH 29.6 pg (27.0-31.0) 09/09/16 05:30 MCHC 32.4 g/dL (33.0-37.0) L 09/09/16 05:30 RDW 15.6 % (11.5-14.5) H 09/09/16 05:30 Plt Count 211 K/uL (130-400) 09/09/16 05:30 Sodium 139 mmol/l (132-148) 09/09/16 05:30 Potassium 4.0 MMOL/L (3.6-5.0) 09/09/16 05:30 Chloride 103 mmol/L (98-107) 09/09/16 05:30 Carbon Dioxide 28 mmol/L (22-30) 09/09/16 05:30 Anion Gap 12 (10-20) 09/09/16 05:30 BUN 21 mg/dl (9-20) H 09/09/16 05:30 Creatinine 0.8 mg/dL (0.8-1.5) 09/09/16 05:30 Est GFR ( Amer) > 60 09/09/16 05:30 Est GFR (Non-Af Amer) > 60 09/09/16 05:30 Random Glucose 85 mg/dL (75-110) 09/09/16 05:30 Calcium 9.0 mg/dL (8.4-10.2) 09/09/16 05:30 Discharge Exam - Respiratory Exam Additional comments: ATTENDING NOTE ADDENDUM Patient seen and examined. Case discussed with resident. Patient reports he feels better and is ready to go home. Podiatry consult discussed. Agree with findings and plan.
[2016-09-17 12:23] VITALS: BP 102/78; PULSE 80
== END 2016-09-17 15:30 | disposition home or self-care (01) | DRG 603 ==
LOC: H.TCU 15:10 → UNDOADMIN 15:10 → H.TCU 15:50 → UNDOADMIN 09-15 08:06 → H.TCU 09-15 08:06
PROVIDERS: ADMIT Family Medicine Geriatric Medicine; ATTEND Family Medicine Geriatric Medicine
PROC: F07Z9FZ Gait Training/Functional Ambulation Treatment using Assistive, Adaptive, Supportive or Protective Equipment (ICD-10-PCS; principal; 2016-09-08)
PROC: F08Z4ZZ Home Management Treatment (ICD-10-PCS; 2016-09-08)
PROC: F07L6ZZ Therapeutic Exercise Treatment of Musculoskeletal System - Lower Back / Lower Extremity (ICD-10-PCS; 2016-09-08)
DX: L03.116 Cellulitis of left lower limb (principal); I48.0 Paroxysmal atrial fibrillation; I10 Essential (primary) hypertension; B35.3 Tinea pedis; E78.5 Hyperlipidemia, unspecified; F41.9 Anxiety disorder, unspecified; M54.10 Radiculopathy, site unspecified; G89.29 Other chronic pain; N40.0 Benign prostatic hyperplasia without lower urinary tract symptoms; Z87.891 Personal history of nicotine dependence

== ENCOUNTER 2016-10-14 07:01 | Emergency (ER) | payer MEDICARE, MEDICAID ==
[2016-10-14 07:01] VITALS: BMI 28.7
[2016-10-14 07:18] VITALS: TEMP 98.2
[2016-10-14 07:48] VITALS: RESP 16
[2016-10-14 08:10] LABS: BASO # 0.1 K/uL (0.0-0.2); BASO % 0.9 % (0.0-2.0); EOS # 0.3 K/uL (0.0-0.7); EOS % 3.8 % (0.0-4.0); HEMOGLOBIN 10.6 g/dL (12.0-18.0); LYMPH # 1.4 K/uL (1.0-4.3); MEAN CELL VOLUME 88.4 fl (80.0-94.0); MEAN CORPUSCULAR HEMOGLOBIN 28.7 pg (27.0-31.0); MEAN CORPUSCULAR HGB CONC 32.4 g/dL (33.0-37.0); MEAN PLATELET VOLUME 8.8 fl (7.2-11.7); MONO # 0.8 K/uL (0.0-0.8); MONO % 10.7 % (0.0-10.0); NEUT # 4.9 K/uL (1.8-7.0); NEUT % 65.6 % (50.0-75.0); RBC 3.69 Mil/uL (4.40-5.90); RED CELL DISTRIBUTION WIDTH 15.7 % (11.5-14.5); WHITE BLOOD COUNT 7.5 K/uL (4.8-10.8)
[2016-10-14 08:20] LABS: BLOOD UREA NITROGEN 33 mg/dl (9-20); GFR AFRICAN-AMERICAN > 60; GFR NON-AFRICAN AMERICAN 53
[2016-10-14 08:21] LABS: CALCIUM 8.8 mg/dL (8.4-10.2)
[2016-10-14 08:34] LABS: INR 1.1 (0.9-1.2); PARTIAL THROMBOPLASTIN TIME 30.2 Seconds (25.6-37.1); PROTHROMBIN TIME 11.8 Seconds (9.8-13.1)
[2016-10-14] MEDS ORDERED: Lidocaine 1% w Epi 1:100,000 Inj IJ ONE (09:15)
--- NOTE | 2016-10-14 09:31 | ED PDOC ---
Lower Extremity Pain/Injury Time Seen by Provider: 10/14/16 07:22 Chief Complaint (Nursing): Lower Extremity Problem/Injury Chief Complaint (Provider): Lower Extremity Problem/Injury History Per: Patient History/Exam Limitations: no limitations Onset/Duration Of Symptoms: Hrs (Started at 1am last night) Current Symptoms Are (Timing): Still Present Additional Complaint(s): 85 y/o male with a past medical history of hypertension and peripheral vascular disease (PVD) who presents to the emergency department with a complaint of a bleeding ulcer located on the right foot that started around 1am last night. 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 Reports bleeding little by little throughout the night but does not stop completely. Denies foot pain, dizziness, or any other medical complaints. Past Medical History Reviewed: Historical Data, Nursing Documentation, Vital Signs Vital Signs: Last Vital Signs Temp 98.2 F 10/14/16 07:36 Pulse 82 10/14/16 07:36 Resp 16 10/14/16 07:36 BP 142/77 10/14/16 07:36 Pulse Ox 96 10/14/16 07:36 - Medical History PMH: Anxiety, Arthritis, Atrial Fibrillation, Back Problems, HTN, Hypercholesterolemia, Pneumonia Denies: HIV, Chronic Kidney Disease Other PMH: Peripheral vascular disease (PVD) - Surgical History Surgical History: Back Surgery Other surgeries: Vascular surgery - Family History Family History: States: Unknown Family Hx - Home Medications Home Medications: Ambulatory Orders Medication Instructions Recorded Aspirin [Ecotrin] 81 mg PO DAILY 09/08/16 Apixaban [Eliquis] 2.5 mg PO BID #30 tab 09/17/16 Atorvastatin [Lipitor] 20 mg PO HS #30 tab 09/17/16 Docusate [Colace] 100 mg PO BID #30 cap 09/17/16 Finasteride [Proscar] 5 mg PO DAILY #30 tab 09/17/16 Gabapentin [Neurontin] 300 mg PO TID #30 cap 09/17/16 Lisinopril [Zestril] 40 mg PO DAILY #30 tab 09/17/16 Loratadine [Claritin] 10 mg PO DAILY #30 tab 09/17/16 Metoprolol Succinate [Toprol XL] 100 mg PO DAILY #30 tab 09/17/16 Oxymetazoline HCl [Nasal 1 spr NS Q12 PRN #30 bottle 09/17/16 Decongestant 15 ml] Sertraline [Zoloft] 100 mg PO DAILY #30 tab 09/17/16 Sodium Chloride Nasal [place] [[place] 2 sprays PB Q4 PRN #30 bottle 09/17/16 Nasal [place]] Sulfamethoxazole/Trimethoprim 1 tab PO Q12 #7 tab 09/17/16 [Bactrim DS Tab] Tamsulosin [Flomax] 0.4 mg PO DAILY #30 cap 09/17/16 hydroCHLOROthiazide [Hydrodiuril] 25 mg PO DAILY #30 tab 09/17/16 oxyCODONE/Acetaminophen [Percocet 1 tab PO Q6 PRN #30 tab 09/17/16 5/325 mg Tab] - Allergies Allergies/Adverse Reactions: Allergies Allergy/AdvReac Type Severity Reaction Status Date / Time No Known Allergies Allergy Verified 10/14/16 07:36 Review of Systems ROS Statement: Except As Marked, All Systems Reviewed And Found Negative Musculoskeletal: Positive for: Other (Right foot with bleeding ulcer). Negative for: Foot Pain Neurological: Negative for: Dizziness Physical Exam - Reviewed Nursing Documentation Reviewed: Yes Vital Signs Reviewed: Yes - Physical Exam Appears: Positive for: Non-toxic, No Acute Distress Head Exam: Positive for: ATRAUMATIC, NORMAL INSPECTION, NORMOCEPHALIC Skin: Positive for: Normal Color, Warm Eye Exam: Positive for: Normal appearance ENT: Positive for: Normal ENT Inspection. Negative for: Pharyngeal Erythema Neck: Positive for: Normal, Supple Cardiovascular/Chest: Positive for: Regular Rate, Rhythm. Negative for: Murmur Respiratory: Positive for: Normal Breath Sounds. Negative for: Accessory Muscle Use, Respiratory Distress Gastrointestinal/Abdominal: Positive for: Normal Exam, Soft. Negative for: Tenderness Extremity: Positive for: Normal ROM, Other (Couple of ulcers located on feet bilaterally. Only 1 ulcer is oozing small amount of blood on the lateral aspect of the right foot and about 1cm in length. ) Neurologic/Psych: Positive for: Alert, Oriented - Laboratory Results Result Diagrams: 10/14/16 07:55 10/14/16 07:55 - ECG O2 Sat by Pulse Oximetry: 96 (RA) Pulse Ox Interpretation: Normal Medical Decision Making Medical Decision Making: Time: 09:15 Initial impression: Bleeding Ulcer Initial plan: --Consult podiatry --Lidocaine/EPI 20 ml IJ --Reevaluation Time: 09:30 --Per podiatry, patient is going to have wound sutures and dressing applied. See consult note by podiatry for procedure note. Time: 10:58 Upon provider reevaluation patient is feeling better, is medically stable, and requires no further treatment in the ED at this time. Patient will be discharged home. Counseling was provided and all questions were answered regarding diagnosis and need for follow up with Dr. Doroteo Fuentes DPM. There is agreement to discharge plan. Return if symptoms persist or worsen. Clinical Impression: Skin ulcer of foot and bleeding from wound Scribe Attestation: Documented by Shelli Morgan, acting as a scribe for Daisy Pepper MD. Provider Scribe Attestation: All medical record entries made by the Scribe were at my direction and personally dictated by me. I have reviewed the chart and agree that the record accurately reflects my personal performance of the history, physical exam, medical decision making, and the department course for this patient. I have also personally directed, reviewed, and agree with the discharge instructions and disposition. Disposition - Clinical Impression Clinical Impression: Skin ulcer of foot, Bleeding from wound - Patient ED Disposition Is Patient to be Admitted: No Doctor Will See Patient In The: Office Counseled Patient/Family Regarding: Studies Performed, Diagnosis, Need For Followup - Disposition Referrals: [facility] [Outside] Doroteo Fuentes DPM [Medical Doctor] - Disposition: Routine/Home Disposition Time: 10:58 Condition: GOOD Additional Instructions: Follow up with wound care clinic within 1 week. Instructions: Acute Wound Care (ED)
[2016-10-14 11:22] VITALS: BP 140/70; PULSE 78; O2SAT 97
--- NOTE | 2016-10-14 16:19 | CP.PCM.CON ---
History of Present Illness - History of Present Illness History of Present Illness: 85 year old male with PMH of hypertension and peripheral vascular disease (PVD) seen in the ED complaining of ulcer on the side of his right foot that has been bleeding since last night. Patient states that he scratched the ulcer last night , causing it to bleed and it has slowly been bleeding all morning. Patient says his blood loss has been minimal but continuous. 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 Patient also states that he takes both Eloquis and Aspirin regularly. He denies any malodor, purulent drainage or periwound erythema. Patient denies any further pedal complaints at this time. Patient denies N/V/F/C/CP/SOB. Review of Systems - Review of Systems Review of Systems: ROS unremarkable outside of HPI Past Patient History - Past Medical History & Family History Past Medical History?: Yes - Past Social History Smoking Status: Former Smoker - CARDIAC Hx Atrial Fibrillation: Yes Hx Hypercholesterolemia: Yes Hx Hypertension: Yes - PULMONARY Hx Pneumonia: Yes - NEUROLOGICAL Hx Neurological Disorder: No - HEENT Hx HEENT Problems: Yes Hx Cataracts: Yes - RENAL Hx Chronic Kidney Disease: No - ENDOCRINE/METABOLIC Hx Endocrine Disorders: No - HEMATOLOGICAL/ONCOLOGICAL Hx Human Immunodeficiency Virus (HIV): No - INTEGUMENTARY Hx Dermatological Problems: No - MUSCULOSKELETAL/RHEUMATOLOGICAL Hx Arthritis: Yes - GASTROINTESTINAL Hx Gastrointestinal Disorders: No - GENITOURINARY/GYNECOLOGICAL Hx Genitourinary Disorders: Yes Hx Prostate Problems: Yes (BPH) - PSYCHIATRIC Hx Anxiety: Yes - SURGICAL HISTORY Hx Surgeries: Yes - ANESTHESIA Hx Anesthesia: Yes Hx Anesthesia Reactions: No Hx Malignant Hyperthermia: No Meds Allergies/Adverse Reactions: Allergies Allergy/AdvReac Type Severity Reaction Status Date / Time No Known Allergies Allergy Verified 10/14/16 07:36 Physical Exam - Constitutional Appears: Well, Non-toxic, No Acute Distress - Extremities Exam Additional comments: LE focused exam: Vasc: DP/PT pulses palpable 2/4 b/l. CFT < 3 seconds to digits 1-5 b/l. Skin temperature warm to warm from proximal to distal Neuro: Epicritic and protective sensation grossly intact b/l Derm: Approx 0.5 cm x 0.5 cm wound noted to lateral right foot. Wound is bleeding continuously. No purulence, malodor, periwound erythema or other clinical signs of infection noted. No probe to bone. Two abnormal, multicolored growths noted 1. dorsal right foot approx 0.5 cm x 0.3 cm 2. plantar left foot approx 0.5 cm x 0.3 cm MSK: POP to bleeding ulceration site - Neurological Exam Neurological exam: Alert, Oriented x3 - Psychiatric Exam Psychiatric exam: Normal Affect, Normal Mood Results - Vital Signs Recent Vital Signs: Last Vital Signs Temp 98.2 F 10/14/16 07:36 Pulse 78 10/14/16 11:21 Resp 16 10/14/16 11:21 BP 140/70 10/14/16 11:21 Pulse Ox 97 10/14/16 11:21 - Labs Result Diagrams: 10/14/16 07:55 10/14/16 07:55 Labs: Laboratory Results - last 24 hr 10/14/16 10/14/16 10/14/16 07:55 07:55 07:55 WBC 7.5 RBC 3.69 L Hgb 10.6 L D Hct 32.6 L MCV 88.4 D MCH 28.7 MCHC 32.4 L RDW 15.7 H Plt Count 239 MPV 8.8 Neut % (Auto) 65.6 Lymph % (Auto) 19.0 L [place] % (Auto) 10.7 H Eos % (Auto) 3.8 Baso % (Auto) 0.9 Neut # 4.9 Lymph # 1.4 [place] # 0.8 Eos # 0.3 Baso # 0.1 PT 11.8 INR 1.1 APTT 30.2 Sodium 138 Potassium 4.8 Chloride 104 Carbon Dioxide 25 Anion Gap 14 BUN 33 H Creatinine 1.3 Est GFR ( Amer) > 60 Est GFR (Non-Af Amer) 53 Random Glucose 106 Calcium 8.8 Blood Type Antibody Screen BBK History Checked 10/14/16 07:55 WBC RBC Hgb Hct MCV MCH MCHC RDW Plt Count MPV Neut % (Auto) Lymph % (Auto) [place] % (Auto) Eos % (Auto) Baso % (Auto) Neut # Lymph # [place] # Eos # Baso # PT INR APTT Sodium Potassium Chloride Carbon Dioxide Anion Gap BUN Creatinine Est GFR ( Amer) Est GFR (Non-Af Amer) Random Glucose Calcium Blood Type O NEGATIVE Antibody Screen Negative BBK History Checked Patient has bt Assessment & Plan - Assessment and Plan (Free Text) Assessment: 85 year old man with bleeding ulceration seen in ED Plan: Patient seen and evaluated Charts, labs and vitals reviewed; WBC 7.5, afebrile Plan discussed with attending Dr. Lr Periwound area injected with 6 cc 1% lidocaine with epinephrine Wound packed with Surgicel and dressed with gauze, ABD and Kerlix Patient dispensed with surgical shoe Patient to follow up with Dr. Fuentes in wound care center next week for ulceration and abnormal growths - Date & Time Date: 10/14/16 Time: 17:31
== END 2016-10-14 11:22 | disposition home or self-care (01) ==
LOC: H.ER 07:01
DX: L97.509 Non-pressure chronic ulcer of other part of unspecified foot with unspecified severity (principal); F41.9 Anxiety disorder, unspecified; I10 Essential (primary) hypertension; I48.91 Unspecified atrial fibrillation; I73.9 Peripheral vascular disease, unspecified; Z79.01 Long term (current) use of anticoagulants; Z79.82 Long term (current) use of aspirin

== ENCOUNTER 2018-05-31 17:48 | Emergency (ER) | payer MEDICARE, MEDICAID ==
[2018-05-31 17:48] VITALS: BMI 28.7
[2018-05-31 18:05] VITALS: TEMP 98; O2SAT 97
[2018-05-31 19:41] LABS: BASO # 0.1 K/uL (0.0-0.2); BASO % 0.8 % (0.0-2.0); EOS # 0.2 K/uL (0.0-0.7); HEMOGLOBIN 11.6 g/dL (12.0-18.0); LYMPH # 1.8 K/uL (1.0-4.3); LYMPH % 23.5 % (20.0-40.0); MEAN CORPUSCULAR HEMOGLOBIN 25.6 pg (27.0-31.0); MEAN CORPUSCULAR HGB CONC 32.8 g/dL (33.0-37.0); MEAN PLATELET VOLUME 8.6 fl (7.2-11.7); MONO # 0.6 K/uL (0.0-0.8); MONO % 8.2 % (0.0-10.0); NEUT # 4.8 K/uL (1.8-7.0); NEUT % 64.5 % (50.0-75.0); NRBC % 0.1 % (0.0-0.0); RBC 4.55 Mil/uL (4.40-5.90); RED CELL DISTRIBUTION WIDTH 19.3 % (11.5-14.5); WHITE BLOOD COUNT 7.5 K/uL (4.8-10.8)
[2018-05-31 19:47] LABS: INR 1.1; PROTHROMBIN TIME 12.9 Seconds (9.8-13.1)
[2018-05-31 19:50] LABS: PARTIAL THROMBOPLASTIN TIME 36.9 Seconds (25.6-37.1)
[2018-05-31 19:53] LABS: BLOOD UREA NITROGEN 28 mg/dl (9-20); CALCIUM 9.2 mg/dL (8.4-10.2); GFR NON-AFRICAN AMERICAN > 60
--- NOTE | 2018-05-31 19:59 | ED PDOC ---
Lower Extremity Pain/Injury Time Seen by Provider: 05/31/18 18:20 Chief Complaint (Nursing): Lower Extremity Problem/Injury Chief Complaint (Provider): Lower Extremity Problem/Injury History Per: Patient History/Exam Limitations: no limitations Onset/Duration Of Symptoms: Days (2X) Additional Complaint(s): 87 year old male patient with a past medical history of hypertension, peripheral vascular disease, and atrial fibrillation presents to the ED with right lower extremity pain and swelling onset 2 days. Patient states that the symptoms have been increasing over two days. Patient was sent from the clinic where Dr. Etienne noted a suspicious lesion to the medial right foot, possibly malignant in nature. Patient also mentions another complaint of recent mild neck pain and is requesting a neck x-ray. Also note, patient is on eliquis. Patient denies fever, nausea, vomiting, chest pains and shortness of breath. PMD: Farrukh Etienne MD Past Medical History Vital Signs: Last Vital Signs Temp 98 F 05/31/18 18:00 Pulse 82 05/31/18 18:00 Resp 16 05/31/18 18:00 BP 150/92 H 05/31/18 18:00 Pulse Ox 97 05/31/18 18:00 - Medical History PMH: Anxiety, Arthritis, Atrial Fibrillation, Back Problems, HTN, Hypercholesterolemia, Pneumonia Denies: HIV, Chronic Kidney Disease - Surgical History Surgical History: Back Surgery - Family History Family History: States: Unknown Family Hx - Social History Ex-Smoker (has not smoked in the last 12 months): Yes Alcohol: None Drugs: Denies - Home Medications Home Medications: Ambulatory Orders Medication Instructions Recorded Aspirin [Ecotrin] 81 mg PO DAILY 09/08/16 Apixaban [Eliquis] 2.5 mg PO BID #30 tab 09/17/16 Atorvastatin [Lipitor] 20 mg PO HS #30 tab 09/17/16 Docusate [Colace] 100 mg PO BID #30 cap 09/17/16 Finasteride [Proscar] 5 mg PO DAILY #30 tab 09/17/16 Gabapentin [Neurontin] 300 mg PO TID #30 cap 09/17/16 Lisinopril [Zestril] 40 mg PO DAILY #30 tab 09/17/16 Loratadine [Claritin] 10 mg PO DAILY #30 tab 09/17/16 Metoprolol Succinate XL [Toprol XL] 100 mg PO DAILY #30 tab 09/17/16 Oxymetazoline HCl [Nasal 1 spr NS Q12 PRN #30 bottle 09/17/16 Decongestant 15 ml] Sertraline [Zoloft] 100 mg PO DAILY #30 tab 09/17/16 Sodium Chloride Nasal [place] [[place] 2 sprays PB Q4 PRN #30 bottle 09/17/16 Nasal [place]] Sulfamethoxazole/Trimethoprim 1 tab PO Q12 #7 tab 09/17/16 [Bactrim DS Tab] Tamsulosin [Flomax] 0.4 mg PO DAILY #30 cap 09/17/16 hydroCHLOROthiazide [Hydrodiuril] 25 mg PO DAILY #30 tab 09/17/16 oxyCODONE/Acetaminophen [Percocet 1 tab PO Q6 PRN #30 tab 09/17/16 5/325 mg Tab] Sulfamethoxazole/Trimethoprim 1 tab PO BID #20 tab 05/31/18 [Bactrim DS 800 mg-160 mg] - Allergies Allergies/Adverse Reactions: Allergies Allergy/AdvReac Type Severity Reaction Status Date / Time No Known Allergies Allergy Verified 05/31/18 18:00 Review of Systems ROS Statement: Except As Marked, All Systems Reviewed And Found Negative Constitutional: Negative for: Fever Cardiovascular: Negative for: Chest Pain Respiratory: Negative for: Shortness of Breath Gastrointestinal: Negative for: Nausea, Vomiting Musculoskeletal: Positive for: Neck Pain (mild), Other (right lower extremity pain and swelling 4) Physical Exam - Reviewed Nursing Documentation Reviewed: Yes Vital Signs Reviewed: Yes - Physical Exam Appears: Positive for: Well, Non-toxic, No Acute Distress Head Exam: Positive for: ATRAUMATIC, NORMAL INSPECTION, NORMOCEPHALIC Skin: Positive for: Normal Color, Warm, DRY Eye Exam: Positive for: EOMI, Normal appearance, PERRL Cardiovascular/Chest: Positive for: Regular Rate, Rhythm Respiratory: Positive for: Normal Breath Sounds. Negative for: Wheezing, Respiratory Distress Pulses-Carotid (L): 2+ Pulses-Dorsalis Pedis (L): 2+ Pulses-Femoral (L): 2+ Pulses-Post. Tibialis (L): 2+ Pulses-Radial (L): 2+ Gastrointestinal/Abdominal: Positive for: Normal Exam, Soft. Negative for: Tenderness Extremity: Positive for: Tenderness (to palpatation of popliteal fossa), Calf Tenderness (palpation on calf squeeze), Swelling (mild swelling and erythema of right distal from right lower leg to ankle), Other (Dark crusted 3 mm lesion to the medial right foot) Neurological/Psych: Positive for: Awake, Alert, Normal Tone, Oriented (X3) - Laboratory Results Result Diagrams: 05/31/18 19:30 05/31/18 19:30 Lab Results: PT 12.9 Seconds (9.8-13.1) 05/31/18 19:30 INR 1.1 05/31/18 19:30 APTT 36.9 Seconds (25.6-37.1) 05/31/18 19:30 D-Dimer, Quantitative 261 ng/mlDDU (0-230) H 05/31/18 19:30 - ECG O2 Sat by Pulse Oximetry: 97 (RA) Pulse Ox Interpretation: Normal Medical Decision Making Medical Decision Makin:20 MDM: Initial Impression: 87 year old male with new right left swelling with pain. Plan: * Rule out deep vein thrombosis vs Cellulitis * Labs with D-Dimer * Bilateral lower extremity ultra sound * Cervical spine x-ray per request. 19:10 Patient to be signed out to Dr. Donohue pending results and reevaluation. Scribe Attestation: Documented by Prosper White, acting as a scribe Juan Daniel Donohue MD Provider Scribe Attestation: All medical record entries made by the Scribe were at my direction and personally dictated by me. I have reviewed the chart and agree that the record accurately reflects my personal performance of the history, physical exam, medical decision making, and the department course for this patient. I have also personally directed, reviewed, and agree with the discharge instructions and disposition Disposition - Clinical Impression Clinical Impression: Cellulitis - Patient ED Disposition Is Patient to be Admitted: Transfer of Care - Disposition Disposition: Transfer of Care Disposition Time: :10 Condition: STABLE Prescriptions: Sulfamethoxazole/Trimethoprim [Bactrim DS 800 mg-160 mg] 1 tab PO BID #20 tab Instructions: Cellulitis (Skin Infection), Adult (DC) Forms: [facility] (Greenlandic) Print Language: YI Patient Signed Over To: Óscar Donohue
[2018-05-31 20:02] LABS: B-TYPE NATRIURETIC PEPTIDE 87.8 pg/ml (0-900)
--- NOTE | 2018-05-31 20:49 | ED PDOC ---
- Laboratory Results Result Diagrams: 05/31/18 19:30 05/31/18 19:30 Lab Results: PT 12.9 Seconds (9.8-13.1) 05/31/18 19:30 INR 1.1 05/31/18 19:30 APTT 36.9 Seconds (25.6-37.1) 05/31/18 19:30 D-Dimer, Quantitative 261 ng/mlDDU (0-230) H 05/31/18 19:30 NT-Pro-B Natriuret Pep 87.8 pg/ml (0-900) 05/31/18 19:30 - ECG O2 Sat by Pulse Oximetry: 97 (RA) Pulse Ox Interpretation: Normal Medical Decision Making Medical Decision Makin:10 Patient was signed out to this provider by Dr. Bowser pending results and reevaluation. 20:07 FINDINGS: DEEP VEINS: The common femoral, superficial femoral, and popliteal veins are echolucent and compressible. There is normal color Doppler flow throughout. The visualized calf veins appear patent. SUPERFICIAL VEINS: The visualized greater saphenous vein is patent. SOFT TISSUES: No popliteal fossa cyst or other abnormalities. IMPRESSION: No deep venous thrombosis evident on bilateral lower extremity examination. 20:57 Cervical spine shows DJD. Labs show no clinically significant abnormalities and patient is stable for discharge. Patient was evaluated by resident Dr. Rahman and will be brought to the clinic within 24 hours for rapid follow up. Diagnosis: Early mild cellulitis of lower extremity Scribe Attestation: Documented by Prosper White, acting as a scribe Juan Daniel Donohue MD Provider Scribe Attestation: All medical record entries made by the Scribe were at my direction and personally dictated by me. I have reviewed the chart and agree that the record accurately reflects my personal performance of the history, physical exam, medical decision making, and the department course for this patient. I have also personally directed, reviewed, and agree with the discharge instructions and disposition Disposition - Clinical Impression Clinical Impression: Cellulitis - POA Present On Arrival: None - Disposition Disposition: Routine/Home Disposition Time: 20:57 Condition: STABLE Prescriptions: Sulfamethoxazole/Trimethoprim [Bactrim DS 800 mg-160 mg] 1 tab PO BID #20 tab Instructions: Cellulitis (Skin Infection), Adult (DC) Forms: [facility] (Polish) Print Language: IRISH
[2018-05-31 21:14] VITALS: BP 162/96; PULSE 80; RESP 18
--- NOTE | 2018-06-01 12:34 | US ---
Date of service: 05/31/2018 PROCEDURE: Bilateral lower extremity venous duplex Doppler. HISTORY: Right leg swelling/pain COMPARISON: Correlation made with prior left extremity venous Doppler study dated 09/15/2016. TECHNIQUE: Bilateral common femoral, superficial femoral, popliteal and posterior tibial veins were evaluated. Flow was assessed with color Doppler, compressibility, assessment of phasic flow and augmentation response. FINDINGS: COMMON FEMORAL VEIN: Right CFV: Unremarkable. Left CFV: Unremarkable. SUPERFICIAL FEMORAL VEIN: Right SFV: Unremarkable. Left SFV: Unremarkable. POPLITEAL VEIN: Right Popliteal: Unremarkable. Left Popliteal: Unremarkable. POSTERIOR TIBIAL VEIN: Right PTV: Unremarkable. Left PTV: Unremarkable. OTHER FINDINGS: None. IMPRESSION: No evidence of deep venous thrombosis.
--- NOTE | 2018-06-01 13:49 | RAD ---
Date of service: 05/31/2018 PROCEDURE: Cervical Spine Radiographs. HISTORY: Pain. COMPARISON: None available. TECHNIQUE: 3 views obtained. FINDINGS: Study is limited due to partial obscuration of the lower cervical segments in the lateral projection by shoulder related artifact. BONES: No definitive radiographic evidence of acute compression fractures. Chronic anterior stature loss of the C4, C3 and probably to a lesser degree C5 segments felt to be degenerative in origin. There is also slight anterior subluxation of C3 over C4. The visualized remaining vertebral bodies and facets are normally aligned. DISC SPACES: Multilevel degenerative spondylosis most notably affecting the C4-C5 and C5-C6 levels. Changes include marked disc space narrowing former more so than latter with endplate eburnation and anterolateral as well as smaller posterior osteophyte formation. Uncovertebral facet arthropathy present throughout. SOFT TISSUES: Normal. No prevertebral soft tissue swelling. OTHER FINDINGS: None. IMPRESSION: Limited study demonstrating no acute fractures. Minor chronic anterior stature loss of the C4, C3 and probably to a lesser degree C5 segments felt to be degenerative in origin. Slight anterior subluxation C3 over C4. Multilevel degenerative spondylosis. If symptoms persist or occult fracture suspected clinically recommend follow-up CT scan.
== END 2018-05-31 21:18 | disposition home or self-care (01) ==
LOC: H.ER 17:48
DX: L03.111 Cellulitis of right axilla (principal); E78.00 Pure hypercholesterolemia, unspecified; I10 Essential (primary) hypertension; I48.91 Unspecified atrial fibrillation; Z79.01 Long term (current) use of anticoagulants

== ENCOUNTER 2018-06-13 17:07 | Emergency (ER) | payer MEDICARE, MEDICAID ==
[2018-06-13 17:07] VITALS: BMI 28.7
[2018-06-13 17:24] VITALS: RESP 16
--- NOTE | 2018-06-13 19:12 | ED PDOC ---
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 Patient states that he was seen at the Clinic and sent here for blood work. Otherwise, denies abdominal pain, vomiting, and other associated complaints. PMD: Farrukh Etienne Past Medical History Reviewed: Historical Data (hemorrhoids), Nursing Documentation, Vital Signs Vital Signs: Last Vital Signs Temp 97.6 F 06/13/18 17:21 Pulse 109 H 06/13/18 17:21 Resp 16 06/13/18 17:21 BP 121/66 06/13/18 17:21 Pulse Ox 98 06/13/18 17:21 - Medical History PMH: Anxiety, Arthritis, Atrial Fibrillation, Back Problems, HTN, Hypercholesterolemia, Pneumonia Denies: HIV, Chronic Kidney Disease - Surgical History Surgical History: Back Surgery - Family History Family History: States: Unknown Family Hx - Social History Current smoker - smoking cessation education provided: No Alcohol: None Drugs: Denies - Home Medications Home Medications: Ambulatory Orders Medication Instructions Recorded Aspirin [Ecotrin] 81 mg PO DAILY 09/08/16 Apixaban [Eliquis] 2.5 mg PO BID #30 tab 09/17/16 Atorvastatin [Lipitor] 20 mg PO HS #30 tab 09/17/16 Docusate [Colace] 100 mg PO BID #30 cap 09/17/16 Finasteride [Proscar] 5 mg PO DAILY #30 tab 09/17/16 Gabapentin [Neurontin] 300 mg PO TID #30 cap 09/17/16 Lisinopril [Zestril] 40 mg PO DAILY #30 tab 09/17/16 Loratadine [Claritin] 10 mg PO DAILY #30 tab 09/17/16 Metoprolol Succinate XL [Toprol XL] 100 mg PO DAILY #30 tab 09/17/16 Oxymetazoline HCl [Nasal 1 spr NS Q12 PRN #30 bottle 09/17/16 Decongestant 15 ml] Sertraline [Zoloft] 100 mg PO DAILY #30 tab 09/17/16 Sodium Chloride Nasal [place] [[place] 2 sprays PB Q4 PRN #30 bottle 09/17/16 Nasal [place]] Sulfamethoxazole/Trimethoprim 1 tab PO Q12 #7 tab 09/17/16 [Bactrim DS Tab] Tamsulosin [Flomax] 0.4 mg PO DAILY #30 cap 09/17/16 hydroCHLOROthiazide [Hydrodiuril] 25 mg PO DAILY #30 tab 09/17/16 oxyCODONE/Acetaminophen [Percocet 1 tab PO Q6 PRN #30 tab 09/17/16 5/325 mg Tab] Sulfamethoxazole/Trimethoprim 1 tab PO BID #20 tab 05/31/18 [Bactrim DS 800 mg-160 mg] Omeprazole 20 mg PO DAILY #30 capsule. 06/13/18 Phenyleph/Mineral Oil/Petrolat 28 gm RC BID #1 oint.appl 06/13/18 [Preparation H Ointment] - Allergies Allergies/Adverse Reactions: Allergies Allergy/AdvReac Type Severity Reaction Status Date / Time No Known Allergies Allergy Verified 06/13/18 17:21 Review of Systems ROS Statement: Except As Marked, All Systems Reviewed And Found Negative Gastrointestinal: Positive for: Other (bright red blood in stool). Negative for: Vomiting, Abdominal Pain Physical Exam - Reviewed Nursing Documentation Reviewed: Yes Vital Signs Reviewed: Yes - Physical Exam Appears: Positive for: No Acute Distress Head Exam: Positive for: ATRAUMATIC, NORMOCEPHALIC Skin: Positive for: Normal Color, Warm. Negative for: Rash Eye Exam: Positive for: Normal appearance Neck: Positive for: Normal Cardiovascular/Chest: Positive for: Regular Rate, Rhythm Respiratory: Positive for: Normal Breath Sounds. Negative for: Respiratory Distress Gastrointestinal/Abdominal: Positive for: Normal Exam, Soft. Negative for: Tenderness, Mass, Guarding, Rebound Back: Positive for: Normal Inspection Rectal: Positive for: Hemorrhoids (multiple external non thrombosed hemorrhoids; brown stool) Extremity: Positive for: Normal ROM (all extremities) Neurological/Psych: Positive for: Awake, Alert, Oriented (x3) - Laboratory Results Result Diagrams: 06/13/18 19:16 06/13/18 19:16 - ECG O2 Sat by Pulse Oximetry: 98 (RA) Pulse Ox Interpretation: Normal Medical Decision Making Medical Decision Making: Time: 1839 Initial Impression: rectal bleeding, hemorrhoids rule out GI bleed Initial Plan: --Type and screen --CMP --CBC with differential --Protonix 40mg IV --Guiac stool --Reevaluation 1899 Patient care endorsed to Dr. Candelario pending workup and reevaluation. Scribe Attestation: Documented by Harriet Resendiz, acting as a scribe for Hanna Hensley MD. Provider Scribe Attestation: All medical record entries made by the Scribe were at my direction and personally dictated by me. I have reviewed the chart and agree that the record accurately reflects my personal performance of the history, physical exam, medical decision making, and the department course for this patient. I have also personally directed, reviewed, and agree with the discharge instructions and disposition. Disposition - Clinical Impression Clinical Impression: Rectal bleeding - Patient ED Disposition Is Patient to be Admitted: Transfer of Care - Disposition Referrals: Farrukh Etienne MD [Family Provider] - Disposition: Transfer of Care Disposition Time: 07:00 Condition: IMPROVED Prescriptions: Omeprazole 20 mg PO DAILY #30 capsule.dr Young/Mineral Oil/Petrolat [Preparation H Ointment] 28 gm RC BID #1 oint.appl Instructions: Bloody Stools, Adult (DC) Forms: [employer] (Croatian) Print Language: LATVIAN
[2018-06-13 19:21] LABS: BASO # 0.1 K/uL (0.0-0.2); BASO % 0.8 % (0.0-2.0); EOS # 0.3 K/uL (0.0-0.7); HEMOGLOBIN 11.9 g/dL (12.0-18.0); LYMPH # 1.4 K/uL (1.0-4.3); LYMPH % 20.1 % (20.0-40.0); MEAN CELL VOLUME 80.1 fl (80.0-94.0); MEAN CORPUSCULAR HEMOGLOBIN 25.6 pg (27.0-31.0); MEAN PLATELET VOLUME 8.8 fl (7.2-11.7); MONO # 0.6 K/uL (0.0-0.8); MONO % 8.8 % (0.0-10.0); NEUT # 4.6 K/uL (1.8-7.0); NEUT % 66.3 % (50.0-75.0); NRBC % 0.1 % (0.0-0.0); RBC 4.63 Mil/uL (4.40-5.90); RED CELL DISTRIBUTION WIDTH 19.3 % (11.5-14.5); WHITE BLOOD COUNT 6.9 K/uL (4.8-10.8)
--- NOTE | 2018-06-13 19:45 | ED PDOC ---
- Laboratory Results Result Diagrams: 06/13/18 19:16 06/13/18 19:16 - ECG O2 Sat by Pulse Oximetry: 98 (RA) Medical Decision Making Medical Decision Makin Patient care endorsed from Dr. Hensley to this provider pending workup and reevaluation. 2100 Guiac needed to be recollected due to imporper collection Guiac showed normal brown stool, no blood, was guiac negative Hgb was stable Patient not complaining of pain, dizziness, or any symptoms Advised outpatient followup given well appearing and stable vitals Scribe Attestation: Documented by Harriet Resendiz, acting as a scribe for Kurt Candelario MD. Provider Scribe Attestation: All medical record entries made by the Scribe were at my direction and personally dictated by me. I have reviewed the chart and agree that the record accurately reflects my personal performance of the history, physical exam, [facility] decision making, and the department course for this patient. I have also personally directed, reviewed, and agree with the discharge instructions and disposition. Disposition - Clinical Impression Clinical Impression: Rectal bleeding - POA Present On Arrival: None - Disposition Referrals: Farrukh Etienne MD [Family Provider] - Disposition: Routine/Home Disposition Time: 21:00 Condition: IMPROVED Prescriptions: Omeprazole 20 mg PO DAILY #30 capsule.dr Young/Mineral Oil/Petrolat [Preparation H Ointment] 28 gm RC BID #1 oint.appl Instructions: Bloody Stools, Adult (DC) Forms: [employer] (Malian) Print Language: [place]OT[place]
[2018-06-13 20:01] LABS: ALB/GLOB RATIO 1.1 (1.0-2.1); ALBUMIN 4.2 g/dL (3.5-5.0); ALT/SGPT 26 U/L (21-72); AST/SGOT 33 U/L (17-59); BLOOD UREA NITROGEN 37 mg/dl (9-20); GFR NON-AFRICAN AMERICAN > 60
[2018-06-13 21:19] VITALS: BP 154/85; PULSE 86; TEMP 98.4
[2018-06-14 02:17] VITALS: O2SAT 98
== END 2018-06-13 21:19 | disposition home or self-care (01) ==
LOC: H.ER 17:07
DX: K62.5 Hemorrhage of anus and rectum (principal); Z79.01 Long term (current) use of anticoagulants; E78.00 Pure hypercholesterolemia, unspecified; F41.9 Anxiety disorder, unspecified; I10 Essential (primary) hypertension; I48.91 Unspecified atrial fibrillation; Z79.899 Other long term (current) drug therapy
CPT/HCPCS: 80053; 85025; 96374; 99284; C9113; G0328

== ENCOUNTER 2018-06-20 17:21 | Observation (INO) | payer MEDICARE, MEDICAID ==
[2018-06-20 17:21] VITALS: BMI 28.7
--- NOTE | 2018-06-20 18:44 | ED PDOC ---
HPI: Chest Pain Time Seen by Provider: 06/20/18 18:30 Chief Complaint (Nursing): Chest Pain Chief Complaint (Provider): Chest Pain, SOB History Per: Patient History/Exam Limitations: no limitations Onset/Duration Of Symptoms: Hrs (earlier this afternoon) Current Symptoms Are (Timing): Better Additional Complaint(s): 87 year old male presents to the ED via ALS for non-radiating substernal chest pain associated with shortness of breath earlier this afternoon. Patient states his shortness of breath resolved after using his inhaler, and his chest pain was resolved by the nitroglycerin SL that the medics gave. Otherwise, denies cough, leg pain, and fever. PMD: Farrukh Etienne Past Medical History Reviewed: Historical Data, Nursing Documentation, Vital Signs Vital Signs: Last Vital Signs Temp 96.0 F L 06/20/18 17:24 Pulse 111 H 06/20/18 17:24 Resp 16 06/20/18 17:24 BP 110/65 06/20/18 17:24 Pulse Ox 94 L 06/20/18 17:24 - Medical History PMH: Anxiety, Arthritis, Atrial Fibrillation, Back Problems, HTN, Hype rcholesterolemia, Pneumonia, Pulmonary Embolism ((on Eloquis)) Denies: HIV, Chronic Kidney Disease - Surgical History Surgical History: Back Surgery - Family History Family History: States: Unknown Family Hx - Living Arrangements Living Arrangements: With Family - Social History Current smoker - smoking cessation education provided: No Alcohol: None Drugs: Denies - Home Medications Home Medications: Ambulatory Orders Medication Instructions Recorded Aspirin [Ecotrin] 81 mg PO DAILY 09/08/16 Apixaban [Eliquis] 2.5 mg PO BID #30 tab 09/17/16 Atorvastatin [Lipitor] 20 mg PO HS #30 tab 09/17/16 Docusate [Colace] 100 mg PO BID #30 cap 09/17/16 Finasteride [Proscar] 5 mg PO DAILY #30 tab 09/17/16 Gabapentin [Neurontin] 300 mg PO TID #30 cap 09/17/16 Lisinopril [Zestril] 40 mg PO DAILY #30 tab 09/17/16 Loratadine [Claritin] 10 mg PO DAILY #30 tab 09/17/16 Metoprolol Succinate XL [Toprol XL] 100 mg PO DAILY #30 tab 09/17/16 Oxymetazoline HCl [Nasal 1 spr NS Q12 PRN #30 bottle 09/17/16 Decongestant 15 ml] Sertraline [Zoloft] 100 mg PO DAILY #30 tab 09/17/16 Sodium Chloride Nasal [place] [[place] 2 sprays PB Q4 PRN #30 bottle 09/17/16 Nasal [place]] Sulfamethoxazole/Trimethoprim 1 tab PO Q12 #7 tab 09/17/16 [Bactrim DS Tab] Tamsulosin [Flomax] 0.4 mg PO DAILY #30 cap 09/17/16 hydroCHLOROthiazide [Hydrodiuril] 25 mg PO DAILY #30 tab 09/17/16 oxyCODONE/Acetaminophen [Percocet 1 tab PO Q6 PRN #30 tab 09/17/16 5/325 mg Tab] Sulfamethoxazole/Trimethoprim 1 tab PO BID #20 tab 05/31/18 [Bactrim DS 800 mg-160 mg] Omeprazole 20 mg PO DAILY #30 capsule. 06/13/18 Phenyleph/Mineral Oil/Petrolat 28 gm RC BID #1 oint.appl 06/13/18 [Preparation H Ointment] - Allergies Allergies/Adverse Reactions: Allergies Allergy/AdvReac Type Severity Reaction Status Date / Time No Known Allergies Allergy Verified 06/20/18 17:24 Review of Systems ROS Statement: Except As Marked, All Systems Reviewed And Found Negative Constitutional: Negative for: Fever Cardiovascular: Positive for: Chest Pain (non-radiating substernal) Respiratory: Positive for: Shortness of Breath. Negative for: Cough Musculoskeletal: Negative for: Leg Pain Physical Exam - Reviewed Nursing Documentation Reviewed: Yes Vital Signs Reviewed: Yes - Physical Exam Appears: Positive for: No Acute Distress Head Exam: Positive for: ATRAUMATIC, NORMAL INSPECTION, NORMOCEPHALIC Skin: Positive for: Normal Color, Warm Eye Exam: Positive for: Normal appearance ENT: Positive for: Normal ENT Inspection Neck: Positive for: Normal, Painless ROM, Supple Cardiovascular/Chest: Positive for: Tachycardia Respiratory: Positive for: Normal Breath Sounds. Negative for: Accessory Muscle Use, Respiratory Distress Gastrointestinal/Abdominal: Positive for: Normal Exam, Soft. Negative for: Tenderness Back: Positive for: Normal Inspection Extremity: Negative for: Tenderness, Calf Tenderness (bilaterally, or swelling), Swelling Neurological/Psych: Positive for: Awake, Alert, Oriented (x3) - ECG ECG: Positive for: Interpreted By Me, Viewed By Me ECG Rhythm: Positive for: Sinus Tachycardia (108), Nonspecific Changes O2 Sat by Pulse Oximetry: 94 Medical Decision Making Medical Decision Making: A/P: Patient and family deny history of CAD, but do report patient has history of PE on Eloquis. Will obtain CTA and cardiac labs. Time: 1837 Initial Plan: --EKG --CMP --Trop I --CBC with differential --CXR --CTA 1899 Patient care endorsed to Dr. Candelario pending workup and reevaluation. Scribe Attestation: Documented by Harriet Resendiz, acting as a scribe for Renzo Marino MD. Provider Scribe Attestation: All medical record entries made by the Scribe were at my direction and personally dictated by me. I have reviewed the chart and agree that the record accurately reflects my personal performance of the history, physical exam, medical decision making, and the department course for this patient. I have also personally directed, reviewed, and agree with the discharge instructions and disposition. Disposition - Clinical Impression Clinical Impression: Chest pain - Patient ED Disposition Is Patient to be Admitted: Transfer of Care - Disposition Disposition: Transfer of Care Disposition Time: 19:00 Condition: FAIR Forms: [employer] (Kazakh) Patient Signed Over To: Kurt Candelario (Bedside rounds pending labs abd CT Chest and reeval)
[2018-06-20 18:55] LABS: BASO % 0.4 % (0.0-2.0); EOS # 0.2 K/uL (0.0-0.7); EOS % 3.3 % (0.0-4.0); HEMOGLOBIN 10.7 g/dL (12.0-18.0); LYMPH # 1.2 K/uL (1.0-4.3); LYMPH % 17.8 % (20.0-40.0); MEAN CELL VOLUME 79.8 fl (80.0-94.0); MEAN CORPUSCULAR HEMOGLOBIN 25.8 pg (27.0-31.0); MEAN CORPUSCULAR HGB CONC 32.4 g/dL (33.0-37.0); MEAN PLATELET VOLUME 8.8 fl (7.2-11.7); MONO # 0.8 K/uL (0.0-0.8); MONO % 12.5 % (0.0-10.0); NEUT # 4.5 K/uL (1.8-7.0); RBC 4.15 Mil/uL (4.40-5.90); WHITE BLOOD COUNT 6.8 K/uL (4.8-10.8)
[2018-06-20 19:42] LABS: ALB/GLOB RATIO 1.2 (1.0-2.1); ALBUMIN 3.9 g/dL (3.5-5.0); ALT/SGPT 22 U/L (21-72); AST/SGOT 24 U/L (17-59); BLOOD UREA NITROGEN 51 mg/dl (9-20); GFR NON-AFRICAN AMERICAN > 60
[2018-06-20] MEDS ORDERED: Sodium Chloride 0.9% 100 ML ONE (20:17)
[2018-06-20] MEDS ORDERED: Iodixanol 320 MG/ML 100 ML BOTTLE IV ONE (20:17)
--- NOTE | 2018-06-20 22:21 | ED PDOC ---
- Laboratory Results Result Diagrams: 06/20/18 18:48 06/20/18 18:48 Lab Results: Troponin I < 0.0120 ng/mL (0.00-0.120) 06/20/18 18:48 Total Bilirubin 0.3 mg/dl (0.2-1.3) 06/20/18 18:48 AST 24 U/L (17-59) 06/20/18 18:48 ALT 22 U/L (21-72) 06/20/18 18:48 Alkaline Phosphatase 93 U/L (38-126) 06/20/18 18:48 Total Protein 7.3 G/DL (6.3-8.2) 06/20/18 18:48 Albumin 3.9 g/dL (3.5-5.0) 06/20/18 18:48 Globulin 3.4 gm/dL (2.2-3.9) 06/20/18 18:48 Albumin/Globulin Ratio 1.2 (1.0-2.1) 06/20/18 18:48 - ECG O2 Sat by Pulse Oximetry: 94 Medical Decision Making Medical Decision MakinPM Patient signed out to me by Dr. Marino pending CTA 930PM EXAM: CTA Chest without Intravenous Contrast for Pulmonary Embolism CLINICAL HISTORY: Chest Pain, h/o PE TECHNIQUE: Axial CTA images of the chest without intravenous contrast using a pulmonary embolism protocol. Reconstructed images were created and reviewed. 323.16 mGy-cm CONTRAST: Without was administered without incident. COMPARISON: Comparison is made to prior CTA thorax examination dated 04/28/2013. FINDINGS: PULMONARY ARTERIES No evidence of central or segmental pulmonary embolism is seen. AORTA There is no evidence for aneurysm or dissection of the thoracic aorta. LUNGS The lungs appear clear. PLEURAL SPACES No pleural effusion seen. No pneumothorax evident. HEART Normal heart size. No pericardial effusion. LYMPH NODES No lymphadenopathy is evident. BONES No focal osseous abnormality or acute fracture. UPPER ABDOMEN Images of the upper abdomen demonstrate visualization of a portion of an IVC filter. IMPRESSION: 1. Unremarkable pulmonary embolism protocol CTA of the chest. 2. A portion of an IVC filter is identified. Electronically signed on Jun 20, 2018 9:27:40 PM EDT by: Luther Cardenas M.D., M.B.A., Certified By [employer] Trained MRI and CT Specialist Patient re-evaluated at bedside, well appearing, no chest pain at this time Explained results to patient and family Given age and risk factors, will admit in Tele OBS for continuous cardiac monitoring, serial troponins, and further workup as warranted Dr. Davila aware. Disposition - Clinical Impression Clinical Impression: Chest pain - POA Present On Arrival: None - Disposition Disposition: Hospitalized as Observation Patient Disposition Time: 22:00 Condition: FAIR
--- NOTE | 2018-06-20 23:05 | CP.PCM.HP ---
<Anastasia Bailey - Last Filed: 06/21/18 01:18> History of Present Illness - History of Present Illness History of Present Illness: 87 yo M w PMHx of HTN, Afib, HLD, PE and chronic back pain is admitted due to chest pain, r/o ACS. Patient was brought via ALS. Patient endorses substernal chest pain since this afternoon, non radiating, he reports he was in the bathroom trying to urinate when pain started, reports associated with shortness of breath that relief using his inhaler, he denies any asthma or COPD hx. Also reports associated dizziness, palpitations and feeling cold. Patient reports his chest pain was resolved by nitroglycerin SL that he took at home. Otherwise, denies cough, arm or neck pain, fever, headaches, LOC, abdominal pain, vomiting, diarrhea, dyspnea, no urinary sx. PMD: Dr Alesha Etienne PMHx: HTN, 4 cervical disc herniations, BPH, anxiety, Afib, PE, HLD PSHx: Varicose Vein ablation, Herniated Cervical Disc Surgeries x 4, IVC filter NKDA Home Meds: Eliquis 2.5mg BID, ASA 81mg QD, Lipitor 20mg QD, Finasteride 5mg QD, Flomax 0.4mg QD, Gabapentin 300mg TID, HCTZ 25mg QD, Lisinopril 20mg QD, Toprol XL 100mg QD, Protonix 40mg QD, Zoloft 100mg QD SHx: 1 PPD x 30 years but quit +40 yrs ago, etoh abuse but quit 'many' years prior, denies illicit drugs Present on Admission - Present on Admission Any Indicators Present on Admission: No Review of Systems - Review of Systems All systems: reviewed and no additional remarkable complaints except (HPI) Past Patient History - Past Medical History & Family History Past Medical History?: Yes - Past Social History Alcohol: None Drugs: Denies - CARDIAC Hx Atrial Fibrillation: Yes Hx Hypercholesterolemia: Yes Hx Hypertension: Yes - PULMONARY Hx Pneumonia: Yes Hx Pulmonary Embolism: Yes ((on Eloquis)) - NEUROLOGICAL Hx Neurological Disorder: No - HEENT Hx HEENT Problems: Yes Hx Cataracts: Yes - RENAL Hx Chronic Kidney Disease: No - ENDOCRINE/METABOLIC Hx Endocrine Disorders: No - HEMATOLOGICAL/ONCOLOGICAL Hx Human Immunodeficiency Virus (HIV): No - INTEGUMENTARY Hx Dermatological Problems: No - MUSCULOSKELETAL/RHEUMATOLOGICAL Hx Arthritis: Yes - GASTROINTESTINAL Hx Gastrointestinal Disorders: No - GENITOURINARY/GYNECOLOGICAL Hx Genitourinary Disorders: Yes Hx Prostate Problems: Yes (BPH) - PSYCHIATRIC Hx Anxiety: Yes - SURGICAL HISTORY Hx Surgeries: Yes - ANESTHESIA Hx Anesthesia: Yes Hx Anesthesia Reactions: No Hx Malignant Hyperthermia: No Meds Allergies/Adverse Reactions: Allergies Allergy/AdvReac Type Severity Reaction Status Date / Time No Known Allergies Allergy Verified 06/20/18 17:24 Physical Exam - Constitutional Appears: No Acute Distress - Head Exam Head Exam: NORMAL INSPECTION - Eye Exam Eye Exam: EOMI, PERRL. absent: Nystagmus - ENT Exam ENT Exam: Mucous Membranes Moist - Neck Exam Neck exam: Positive for: Full Rom. Negative for: Lymphadenopathy, Thyromegaly - Respiratory Exam Respiratory Exam: Clear to Auscultation Bilateral, NORMAL BREATHING PATTERN. absent: Chest Wall Tenderness, Rales, Wheezes, Respiratory Distress - Cardiovascular Exam Cardiovascular Exam: REGULAR RHYTHM, +S1, +S2. absent: Tachycardia, Systolic Murmur - GI/Abdominal Exam GI & Abdominal Exam: Normal Bowel Sounds, Soft. absent: Distended, Tenderness - Extremities Exam Extremities exam: Negative for: calf tenderness, pedal edema - Back Exam Back exam: NORMAL INSPECTION. absent: CVA tenderness (L), CVA tenderness (R) - Neurological Exam Neurological exam: Alert, CN II-XII Intact, Oriented x3 - Psychiatric Exam Psychiatric exam: Normal Affect - Skin Skin Exam: Dry, Normal Color, Warm Results - Vital Signs Recent Vital Signs: Last Vital Signs Temp 96.0 F L 06/20/18 17:24 Pulse 111 H 06/20/18 17:24 Resp 16 06/20/18 17:24 BP 110/65 06/20/18 17:24 Pulse Ox 94 L 06/20/18 22:22 - Labs Result Diagrams: 06/20/18 18:48 06/20/18 18:48 Labs: Laboratory Results - last 24 hr 06/20/18 06/20/18 18:48 18:48 WBC 6.8 RBC 4.15 L Hgb 10.7 L Hct 33.2 L MCV 79.8 L MCH 25.8 L MCHC 32.4 L RDW 20.0 H Plt Count 248 MPV 8.8 Neut % (Auto) 66.0 Lymph % (Auto) 17.8 L Butler % (Auto) 12.5 H Eos % (Auto) 3.3 Baso % (Auto) 0.4 Neut # (Auto) 4.5 Lymph # (Auto) 1.2 Butler # (Auto) 0.8 Eos # (Auto) 0.2 Baso # (Auto) 0.0 Sodium 136 Potassium 4.9 Chloride 103 Carbon Dioxide 26 Anion Gap 12 BUN 51 H Creatinine 1.0 Est GFR ( Amer) > 60 Est GFR (Non-Af Amer) > 60 Random Glucose 93 Calcium 9.0 Total Bilirubin 0.3 AST 24 ALT 22 Alkaline Phosphatase 93 Troponin I < 0.0120 Total Protein 7.3 Albumin 3.9 Globulin 3.4 Albumin/Globulin Ratio 1.2 Assessment & Plan - Assessment and Plan (Free Text) Assessment: 87 yo Male patient with chest pain admitted to r/o ACS. Plan: Chest pain r/o ACS - VSS - admit to tele, continue cardiac monitoring - s/p NTG SL - CXR: negative for acute lung disease - EKG: atrial Fib, no acute changes - CT chest preliminar: negative for PE; f/u official read - troponin x1 neg, f/u trending - EKG and labs in am - for echo in am; last echo 2016 showed LVEF 55% - Cardiology consulted, recs appreciated - Continue NTG SL prn - Home medications resumed. Anemia - H/H 10.4/33.2 - stable, no signs of active bleeding - Hemocult 06/13/18 negative - for Iron studies A Fib - rate controlled - continue Eliquis BID HTN - chronic controlled - cont home meds BPH - resume home meds PPx DVT: on eliquis GI: protonix Case seen and discussed with Dr Davila. <Venkata Davila - Last Filed: 06/21/18 04:19> Results - Vital Signs Recent Vital Signs: Last Vital Signs Temp 97.6 F 06/21/18 00:39 Pulse 88 06/21/18 01:18 Resp 19 06/21/18 01:18 BP 164/90 H 06/21/18 00:39 Pulse Ox 96 06/21/18 00:39 - Labs Result Diagrams: 06/20/18 18:48 06/20/18 18:48 Labs: Laboratory Results - last 24 hr 04/06/20/18 06/21/18 18:48 18:48 00:45 WBC 6.8 RBC 4.15 L Hgb 10.7 L Hct 33.2 L MCV 79.8 L MCH 25.8 L MCHC 32.4 L RDW 20.0 H Plt Count 248 MPV 8.8 Neut % (Auto) 66.0 Lymph % (Auto) 17.8 L Butler % (Auto) 12.5 H Eos % (Auto) 3.3 Baso % (Auto) 0.4 Neut # (Auto) 4.5 Lymph # (Auto) 1.2 Butler # (Auto) 0.8 Eos # (Auto) 0.2 Baso # (Auto) 0.0 Sodium 136 Potassium 4.9 Chloride 103 Carbon Dioxide 26 Anion Gap 12 BUN 51 H Creatinine 1.0 Est GFR ( Amer) > 60 Est GFR (Non-Af Amer) > 60 Random Glucose 93 Calcium 9.0 Total Bilirubin 0.3 AST 24 ALT 22 Alkaline Phosphatase 93 Troponin I < 0.0120 0.0250 Total Protein 7.3 Albumin 3.9 Globulin 3.4 Albumin/Globulin Ratio 1.2 Attending/Attestation - Attestation I have personally seen and examined this patient.: Yes I have fully participated in the care of the patient.: Yes I have reviewed all pertinent clinical information: Yes Notes (Text): 06/21/18 03:49 I saw, examined and discussed this patient with Dr Bailey. I agree with the assessment and plan. This is an 87 years old male with hx of PVD, multiple back surgeries and Paroxysmal of Atrial Fibrillation. He comes with retrosternal chest pain radiating across the left and right chest with some relief with sublingual Nitroglycerine. In ED the EKG showed a Sinus tachycardia with multiple PACs. CTA chest showed no PE. We will treat Chest pain for esophagitis and r/o ACS with serial Troponin, EKG, ECHO and consult cardiology. For anemia, follow Iron profile and treat. Abnormal EKG with sinus tachycardia with multiple PACs. We will place the patient on the monitoring manager, Follow electrolytes. Patient receiving Eliquis as anticoagulant for the Paroxsmal A Fib. Treat BPH with Flomax Venkata Davila MD
[2018-06-21 05:27] LABS: BASO % 0.5 % (0.0-2.0); EOS # 0.4 K/uL (0.0-0.7); EOS % 6.4 % (0.0-4.0); HEMOGLOBIN 10.8 g/dL (12.0-18.0); LYMPH # 1.9 K/uL (1.0-4.3); LYMPH % 30.8 % (20.0-40.0); MEAN CELL VOLUME 79.6 fl (80.0-94.0); MEAN CORPUSCULAR HEMOGLOBIN 25.9 pg (27.0-31.0); MEAN CORPUSCULAR HGB CONC 32.6 g/dL (33.0-37.0); MEAN PLATELET VOLUME 8.6 fl (7.2-11.7); MONO # 0.8 K/uL (0.0-0.8); MONO % 12.1 % (0.0-10.0); NEUT # 3.1 K/uL (1.8-7.0); NEUT % 50.2 % (50.0-75.0); NRBC % 0.1 % (0.0-0.0); RBC 4.16 Mil/uL (4.40-5.90); RED CELL DISTRIBUTION WIDTH 20.1 % (11.5-14.5); WHITE BLOOD COUNT 6.3 K/uL (4.8-10.8)
[2018-06-21 05:35] LABS: IRON 37 ug/dL (49-181)
[2018-06-21 05:42] LABS: ALB/GLOB RATIO 1.1 (1.0-2.1); ALBUMIN 3.6 g/dL (3.5-5.0); ALT/SGPT 28 U/L (21-72); AST/SGOT 38 U/L (17-59); BLOOD UREA NITROGEN 42 mg/dl (9-20); CALCIUM 8.9 mg/dL (8.4-10.2); GFR NON-AFRICAN AMERICAN > 60
[2018-06-21 05:45] LABS: % IRON SATURATION 10 % (20-55); TOTAL IRON BINDING CAPACITY 360 ug/dL (250-450)
[2018-06-21 06:03] LABS: FERRITIN 9.4 ng/Ml (17.9-464)
[2018-06-21] MEDS: Metoprolol Succinate 100 mg XL Tab PO SCH (08:11)
[2018-06-21] MEDS: Pantoprazole 40 mg EC Tab PO SCH (08:11)
--- NOTE | 2018-06-21 08:17 | CARD ---
APPROVED REPORT Date of service: 06/21/2018 EKG Measurement Heart [id number] <Conclusion> Sinus rhythm with premature atrial complexes Otherwise normal ECG
--- NOTE | 2018-06-21 08:20 | CARD ---
APPROVED REPORT Date of service: 06/20/2018 EKG Measurement Heart [id number] [id number] <Conclusion> Sinus tachycardia with premature atrial complexes Otherwise normal ECG
--- NOTE | 2018-06-21 14:14 | RAD ---
Date of service: 06/20/2018 HISTORY: chest pain COMPARISON: 09/05/2016 TECHNIQUE: Chest PA and lateral views FINDINGS: LUNGS: No active pulmonary disease. PLEURA: No significant pleural effusion identified. No pneumothorax apparent. CARDIOVASCULAR: Moderate aortic tortuosity Normal cardiac size. No pulmonary vascular congestion. OSSEOUS STRUCTURES: No significant abnormalities. VISUALIZED UPPER ABDOMEN: Normal. OTHER FINDINGS: None. IMPRESSION: No active disease.
--- NOTE | 2018-06-21 14:37 | CT ---
Date of service: 06/20/2018 PROCEDURE: CT Chest with contrast (Pulmonary Angiogram) HISTORY: Chest pain, h/o PE COMPARISON: 04/28/2013 TECHNIQUE: Axial computed tomography images were obtained of the chest in the pulmonary arterial phase of enhancement. Coronal and sagittal reformatted images were created and reviewed. Intravenous contrast dose: 90 mL Visipaque 320 Radiation dose: Total exam DLP = 323.16 mGy-cm. This CT exam was performed using one or more of the following dose reduction techniques: Automated exposure control, adjustment of the mA and/or kV according to patient size, and/or use of iterative reconstruction technique. FINDINGS: PULMONARY ARTERIES: Unremarkable. No pulmonary embolism. AORTA: No acute findings. No thoracic aortic aneurysm. No aortic atherosclerotic calcification or mural plaque present. LUNGS: No infiltrate. There is a 9 mm perifissural nodule within the minor fissure or immediately abutting the minor fissure. This is unchanged when compared to prior examination of 04/28/2013 and likely represents an intrapulmonary lymph node. There is no other pulmonary mass identified. PLEURAL SPACES: Unremarkable. No effusion or pneumothorax. HEART: Unremarkable. No cardiomegaly. No significant pericardial effusion. LYMPH NODES: No lymphadenopathy. BONES, CHEST WALL: Unremarkable. No fracture or destructive lesion OTHER FINDINGS: In the upper abdomen, there is a mildly exophytic 1.4 cm mass in the mid right kidney which is of intermediate attenuation. Although this most likely represents a hyperdense cyst, further evaluation with renal ultrasound examination is advised on a nonemergent basis. Please note that the most cephalad aspect of an inferior vena caval filter is noted. IMPRESSION: No evidence of pulmonary embolism. Stable perifissural nodule abutting or within the minor fissure unchanged since 2013. 1.4 cm rounded intermediate attenuation cortical mass in the mid right kidney. Recommend additional evaluation with ultrasound. Inferior vena caval filter noted at the extreme caudal aspect of this examination The preliminary findings for this examination were reported by [facility] at 9:27 p.m. on 06/20/2018. There is discordance of this report with the preliminary findings. The right renal mass described above was not described in the preliminary report of this examination. Please see recommendations above.
--- NOTE | 2018-06-21 16:30 | CP.PCM.PN ---
<Ian Meadows - Last Filed: 06/21/18 16:33> Subjective - Date & Time of Evaluation Date of Evaluation: 06/21/18 Time of Evaluation: 10:40 - Subjective Subjective: Patient seen at bedside this Am eating breakfast not acute distress. Patient states CP is resolved. Denies SOB, palpitations. Patient states CP was retrostenal and not modified with exertion. He has no other complains this morning. Objective - Vital Signs/Intake and Output Vital Signs (last 24 hours): Temp Pulse Resp BP Pulse Ox 97.8 F 73 18 98/55 L 95 06/21/18 16:04 06/21/18 16:04 06/21/18 16:04 06/21/18 16:04 06/21/18 16:04 - Medications Medications: Current Medications Apixaban (Eliquis) 2.5 mg PO BID [facility]; Protocol Last Admin: 06/21/18 08:11 Dose: 2.5 mg Atorvastatin Calcium (Lipitor) 20 mg PO [facility] Ferrous Sulfate (Feosol) 325 mg PO BID [facility] Last Admin: 06/21/18 08:11 Dose: 325 mg Finasteride (Proscar) 5 mg PO DAILY [facility] Last Admin: 06/21/18 08:11 Dose: 5 mg Furosemide (Lasix) 40 mg PO DAILY [facility] Last Admin: 06/21/18 08:12 Dose: 40 mg Lisinopril (Zestril) 40 mg PO DAILY [facility] Last Admin: 06/21/18 08:11 Dose: 40 mg Metoprolol Succinate (Toprol Xl) 100 mg PO DAILY [facility] Last Admin: 06/21/18 08:11 Dose: 100 mg Nitroglycerin (Nitrostat Sl Tab) 0.4 mg SL Q5M PRN PRN Reason: Pain, severe (8-10) Pantoprazole Sodium (Protonix Ec Tab) 40 mg PO DAILY [facility] Last Admin: 06/21/18 08:11 Dose: 40 mg Sertraline HCl (Zoloft) 50 mg PO DAILY [facility] Last Admin: 06/21/18 08:12 Dose: 50 mg Tamsulosin HCl (Flomax) 0.4 mg PO DAILY [facility] Last Admin: 06/21/18 08:11 Dose: 0.4 mg - Labs Labs: 06/21/18 05:00 06/21/18 05:00 - Constitutional Appears: Non-toxic, No Acute Distress - Eye Exam Eye Exam: PERRL - ENT Exam ENT Exam: Mucous Membranes Moist - Respiratory Exam Respiratory Exam: Clear to Ausculation Bilateral, NORMAL BREATHING PATTERN - Cardiovascular Exam Cardiovascular Exam: +S1, +S2. absent: Gallop - GI/Abdominal Exam GI & Abdominal Exam: Soft, Normal Bowel Sounds. absent: Tenderness - Extremities Exam Extremities Exam: absent: Calf Tenderness - Neurological Exam Neurological Exam: Alert, Awake, Oriented x3 - Skin Skin Exam: Warm. absent: Petechiae, Rash Assessment and Plan - Assessment and Plan (Free Text) Assessment: 87 yo Male patient with chest pain admitted to r/o ACS. Chest pain Resolved ACS ruled out Trop x 3 normal EKG no changes compared to admission CXR: negative for acute lung disease CTA chest: No PE Cardiology consulted, recs appreciated Echo report pending Continue NTG SL prn Home medications resumed. Stable for DC home after cardio clearance/echo Iron deficiency Anemia Chronic Ferritin low H/H 10.4/33.2 stable, no signs of active bleeding FOBT 06/13/18 negative Start Ferrous sulfate BID A Fib chronic rate controlled continue Eliquis BID Kidney mass Noted on CT chest Recs f/u with renal US as outpatient HTN chronic controlled cont home meds BPH resume home meds PPx DVT: on eliquis GI: protonix <Zara Anne - Last Filed: 06/22/18 22:14> Objective - Vital Signs/Intake and Output Vital Signs (last 24 hours): Temp Pulse Resp BP Pulse Ox 98.0 F 42 L 18 103/59 L 95 06/22/18 15:41 06/22/18 15:41 06/22/18 15:41 06/22/18 15:41 06/22/18 15:41 - Labs Labs: 06/21/18 05:00 06/21/18 05:00 Attending/Attestation - Attestation I have personally seen and examined this patient.: Yes I have fully participated in the care of the patient.: Yes I have reviewed all pertinent clinical information, including history, physical exam and plan: Yes Notes (Text): agree with findings and plan as above
--- NOTE | 2018-06-21 19:22 | CARD ---
APPROVED REPORT Date of service: 06/21/2018 EXAM: Two-dimensional and M-mode echocardiogram with Doppler and color Doppler. Other Information Quality : GoodRhythm : NSR INDICATION ACS 2D DIMENSIONS IVSd1.18 (0.7-1.1cm)LVDd4.19 (3.9-5.9cm) LVOT Diameter2.59 (1.8-2.4cm)PWd1.09 (0.7-1.1cm) IVSs1.96 (0.8-1.2cm)LVDs2.63 (2.5-4.0cm) FS (%) 37.2 %PWs1.28 (0.8-1.2cm) M-Mode DIMENSIONS Left Atrium (MM)4.00 (2.5-4.0cm)IVSd1.41 (0.7-1.1cm) Aortic Root3.32 (2.2-3.7cm)LVDd4.32 (4.0-5.6cm) Aortic Cusp Exc.1.47 (1.5-2.0cm)PWd1.35 (0.7-1.1cm) IVSs2.12 cmFS (%) 35 % LVDs2.79 (2.0-3.8cm)PWs2.00 cm Aortic Valve AoV Peak Vmdtsfyt080.1cm/sAoV VTI36.7cmAO Peak GR.12mmHg LVOT Peak Cfyhcjmu261.4cm/sLVOT VTI20.24cmAO Mean GR.7mmHg JOSEP (VMAX)1.93qt9APT (VTI)1.52cm2 Mitral Valve MV E Javkwhcq90.9cm/sMV DECEL PIOZ881koEC A Guqfwshe21.0cm/s MV HCI67igC/A ratio0.5MVA (PHT)2.69cm2 TDI Lateral E' Peak V7.17cm/sMedial E' Peak V4.56cm/sE/Lateral E'6.5 E/Medial E'10.3 Tricuspid Valve TR Peak Nnyrqige559fy/sRAP SZOEBAHN49ipXdCJ Peak Gr.21mmHg [id number] LEFT VENTRICLE The left ventricle is normal size. There is normal left ventricular wall thickness. The left ventricular systolic function is normal. The estimated ejection fraction is 55-60% No regional wall motion abnormalities noted.. Transmitral Doppler flow pattern is Grade I-abnormal relaxation pattern. No left ventricle thrombus noted on this study. There is no ventricular septal defect visualized. There is no left ventricular aneurysm. There is no mass noted in the left ventricle. RIGHT VENTRICLE The right ventricle is normal size. There is normal right ventricular wall thickness. The right ventricular systolic function is normal. ATRIA The left atrium is mildly dilated. The right atrium size is normal. The interatrial septum is intact with no evidence for an atrial septal defect. AORTIC VALVE The aortic valve is normal in structure. No aortic regurgitation is present. There is no aortic valvular stenosis. There is no aortic valvular vegetation. MITRAL VALVE The mitral valve is normal in structure. There is no evidence of mitral valve prolapse. There is no mitral valve stenosis. There is no mitral valve regurgitation noted. TRICUSPID VALVE The tricuspid valve is normal in structure. There is mild tricuspid valve regurgitation noted. RVSP is caluclated at 27 mm Hg. There is no tricuspid valve prolapse or vegetation. There is no tricuspid valve stenosis. PULMONIC VALVE The pulmonary valve is normal in structure. There is no pulmonic valvular regurgitation. There is no pulmonic valvular stenosis. GREAT VESSELS The aortic root is normal in size. The ascending aorta is normal in size. The pulmonary artery is normal. The IVC is normal in size and collapses >50% with inspiration. PERICARDIAL EFFUSION There is no pericardial effusion. There is no pleural effusion. <Conclusion> The estimated ejection fraction is 55-60% Transmitral Doppler flow pattern is Grade I-abnormal relaxation pattern. The left atrium is mildly dilated. There is mild tricuspid valve regurgitation noted. RVSP is caluclated at 27 mm Hg.
--- NOTE | 2018-06-22 00:07 | CON ---
DATE: 06/21/2018 CARDIOLOGY CONSULTATION REASON FOR CONSULTATION: Chest pain. HISTORY OF PRESENT ILLNESS: The patient is an 87-year-old male who presented because of chest pain, which started yesterday afternoon associated with shortness of breath and resolved by sublingual nitroglycerin. At this time, the patient has no chest pain. The patient denies any prior history of heart attack in the past. SOCIAL HISTORY: The patient is a nonsmoker, nondrinker. MEDICATIONS: Eliquis 2.5 mg twice a day, Lasix 40 mg once a day, Lipitor 20 mg once a day, Proscar 5 mg once a day, Protonix 40 mg once a day, Toprol-XL 100 mg once a day, Zestril 40 mg once a day, and Zoloft 50 mg once a day. REVIEW OF SYSTEMS: The patient denies any fever or chills. The patient denies any productive cough. No abdominal pain. PHYSICAL EXAMINATION: GENERAL: The patient is an elderly male who does not appear to be in acute distress. VITAL SIGNS: Blood pressure 154/74, heart rate 82, temperature 98.5, and respirations 18. HEENT: Pale conjunctivae. CHEST: Clear. HEART: S1 and S2, regular. ABDOMEN: Soft. EXTREMITIES: No edema. LABORATORY DATA: Today's hemoglobin and hematocrit 10.8 and 33.1, white count and platelet count are within normal limits. Today's SMA-7 is within normal limits except for a BUN of 42. Three sets of troponins are not in the elevated range. Stool occult blood and negative. D-Dimer on 05/31/2018 was elevated at 261. Chest CT angio was performed. The report is still pending. Chest x-ay revealed significant unfolding of the aorta, prominent bronchovascular markings, no definite infiltrates or effusion. Venous Doppler of lower extremity on 05/31/2018, no evidence of DVT. Also venous Doppler dating back August of 2016 was negative for DVT. ASSESSMENT: 1. Chest pain, myocardial infarction was ruled out. 2. Questionable history of atrial fibrillation for which the patient was placed on Eliquis, but this has to be confirmed with the family. 3. Mild anemia. RECOMMENDATIONS: Continue Eliquis 2.5 mg twice a day, Lasix 40 mg once a day, Lipitor 20 mg once a day, Toprol-XL 100 mg once a day, and Zestril 40 mg once a day. I will review the echocardiographic study performed today and follow up the chest CT angio report. Clayton Hoover MD
[2018-06-22 04:48] VITALS: RESP 18
[2018-06-22] MEDS: Metoprolol Succinate 100 mg XL Tab PO SCH (09:23)
[2018-06-22] MEDS: Pantoprazole 40 mg EC Tab PO SCH (09:23)
--- NOTE | 2018-06-22 12:47 | CP.PCM.DIS ---
<Ian Meadows - Last Filed: 06/22/18 16:59> Provider - Provider Date of Admission: 06/20/18 21:51 Attending physician: Venkata Davila Primary care physician: Farrukh Etienne Consults: 06/20/18 23:10 Cardiology Consult Stat Comment: Consulting Provider: Clayton Hoover Consulting Physician: Clayton Hoover Reason for Consult: chest pain, r/o ACS Time Spent in preparation of Discharge (in minutes): 40 Diagnosis - Discharge Diagnosis (1) Chest pain Status: Resolved (2) Paroxysmal a-fib Status: Chronic Hospital Course - Lab Results Lab Results: Most Recent Lab Values WBC 6.3 K/uL (4.8-10.8) 06/21/18 05:00 RBC 4.16 Mil/uL (4.40-5.90) L 06/21/18 05:00 Hgb 10.8 g/dL (12.0-18.0) L 06/21/18 05:00 Hct 33.1 % (35.0-51.0) L 06/21/18 05:00 MCV 79.6 fl (80.0-94.0) L 06/21/18 05:00 MCH 25.9 pg (27.0-31.0) L 06/21/18 05:00 MCHC 32.6 g/dL (33.0-37.0) L 06/21/18 05:00 RDW 20.1 % (11.5-14.5) H 06/21/18 05:00 Plt Count 247 K/uL (130-400) 06/21/18 05:00 MPV 8.6 fl (7.2-11.7) 06/21/18 05:00 Neut % (Auto) 50.2 % (50.0-75.0) 06/21/18 05:00 Lymph % (Auto) 30.8 % (20.0-40.0) 06/21/18 05:00 [place] % (Auto) 12.1 % (0.0-10.0) H 06/21/18 05:00 Eos % (Auto) 6.4 % (0.0-4.0) H 06/21/18 05:00 Baso % (Auto) 0.5 % (0.0-2.0) 06/21/18 05:00 Neut # (Auto) 3.1 K/uL (1.8-7.0) 06/21/18 05:00 Lymph # (Auto) 1.9 K/uL (1.0-4.3) 06/21/18 05:00 [place] # (Auto) 0.8 K/uL (0.0-0.8) 06/21/18 05:00 Eos # (Auto) 0.4 K/uL (0.0-0.7) 06/21/18 05:00 Baso # (Auto) 0.0 K/uL (0.0-0.2) 06/21/18 05:00 Sodium 138 mmol/l (132-148) 06/21/18 05:00 Potassium 4.3 MMOL/L (3.6-5.0) 06/21/18 05:00 Chloride 103 mmol/L (98-107) 06/21/18 05:00 Carbon Dioxide 28 mmol/L (22-30) 06/21/18 05:00 Anion Gap 11 (10-20) 06/21/18 05:00 BUN 42 mg/dl (9-20) H 06/21/18 05:00 Creatinine 0.9 mg/dl (0.8-1.5) 06/21/18 05:00 Est GFR ( Amer) > 60 06/21/18 05:00 Est GFR (Non-Af Amer) > 60 06/21/18 05:00 Random Glucose 94 mg/dL (75-110) 06/21/18 05:00 Calcium 8.9 mg/dL (8.4-10.2) 06/21/18 05:00 Phosphorus 4.2 mg/dl (2.5-4.5) 06/21/18 05:21 Magnesium 2.1 MG/DL (1.6-2.3) 06/21/18 05:21 Iron 37 ug/dL (49-181) L 06/21/18 05:00 TIBC 360 ug/dL (250-450) 06/21/18 05:00 % Saturation 10 % (20-55) L 06/21/18 05:00 Ferritin 9.4 ng/Ml (17.9-464) L 06/21/18 05:00 Total Bilirubin 0.3 mg/dl (0.2-1.3) 06/21/18 05:00 AST 38 U/L (17-59) 06/21/18 05:00 ALT 28 U/L (21-72) 06/21/18 05:00 Alkaline Phosphatase 90 U/L (38-126) 06/21/18 05:00 Troponin I 0.0180 ng/mL (0.00-0.120) 06/21/18 05:21 Total Protein 7.0 G/DL (6.3-8.2) 06/21/18 05:00 Albumin 3.6 g/dL (3.5-5.0) 06/21/18 05:00 Globulin 3.4 gm/dL (2.2-3.9) 06/21/18 05:00 Albumin/Globulin Ratio 1.1 (1.0-2.1) 06/21/18 05:00 - Hospital Course Hospital Course: 87 y/o M with hx of HTN and Afib prsented to ED with c/o CP and was admitted for CP to r/o ACS. CP resolved overnight and patient had trops x 3 normal. EKG x2 neg for ischemia and stable VS. He had CTA that was neg for PE and Echo with normal EF. HE was evaluated by Cardiology Dr Lenz and cleared to DC home today stable to f/u as outpatient after ACS is ruled out. NO more CP during hosp stay. Discharge Exam - Head Exam Head Exam: NORMAL INSPECTION - Eye Exam Eye Exam: EOMI, PERRL - ENT Exam ENT Exam: Mucous Membranes Dry - Respiratory Exam Respiratory Exam: Clear to PA & Lateral, NORMAL BREATHING PATTERN, UNREMARKABLE - Cardiovascular Exam Cardiovascular Exam: Irregular Rhythm, +S1, +S2. absent: Bradycardia, Tachycardia, Gallop - GI/Abdominal Exam GI & Abdominal Exam: Normal Bowel Sounds, Unremarkable - Neurological Exam Neurological exam: Alert, Oriented x3 - Psychiatric Exam Psychiatric exam: Normal Affect, Normal Mood - Skin Skin Exam: Normal Color, Warm Discharge Plan - Follow Up Plan Condition: STABLE Disposition: HOME/ ROUTINE Patient education suggested?: Yes Instructions: Chest Pain (DC) Additional Instructions: follow up with Dr Etienne in 1 week F/U with [employer] Dr Gomez in 1 week Referrals: Farrukh Etienne MD [Family Provider] - Titus Gomez MD [Staff Provider] - <Zara Anne - Last Filed: 06/22/18 22:14> Provider - Provider Date of Admission: 06/20/18 21:51 Attending physician: Venkata Davila Consults: 06/20/18 23:10 Cardiology Consult Stat Comment: Consulting Provider: Clayton Hoover Consulting Physician: Clayton Hoover Reason for Consult: chest pain, r/o ACS Hospital Course - Lab Results Lab Results: Most Recent Lab Values WBC 6.3 K/uL (4.8-10.8) 06/21/18 05:00 RBC 4.16 Mil/uL (4.40-5.90) L 06/21/18 05:00 Hgb 10.8 g/dL (12.0-18.0) L 06/21/18 05:00 Hct 33.1 % (35.0-51.0) L 06/21/18 05:00 MCV 79.6 fl (80.0-94.0) L 06/21/18 05:00 MCH 25.9 pg (27.0-31.0) L 06/21/18 05:00 MCHC 32.6 g/dL (33.0-37.0) L 06/21/18 05:00 RDW 20.1 % (11.5-14.5) H 06/21/18 05:00 Plt Count 247 K/uL (130-400) 06/21/18 05:00 MPV 8.6 fl (7.2-11.7) 06/21/18 05:00 Neut % (Auto) 50.2 % (50.0-75.0) 06/21/18 05:00 Lymph % (Auto) 30.8 % (20.0-40.0) 06/21/18 05:00 [place] % (Auto) 12.1 % (0.0-10.0) H 06/21/18 05:00 Eos % (Auto) 6.4 % (0.0-4.0) H 06/21/18 05:00 Baso % (Auto) 0.5 % (0.0-2.0) 06/21/18 05:00 Neut # (Auto) 3.1 K/uL (1.8-7.0) 06/21/18 05:00 Lymph # (Auto) 1.9 K/uL (1.0-4.3) 06/21/18 05:00 [place] # (Auto) 0.8 K/uL (0.0-0.8) 06/21/18 05:00 Eos # (Auto) 0.4 K/uL (0.0-0.7) 06/21/18 05:00 Baso # (Auto) 0.0 K/uL (0.0-0.2) 06/21/18 05:00 Sodium 138 mmol/l (132-148) 06/21/18 05:00 Potassium 4.3 MMOL/L (3.6-5.0) 06/21/18 05:00 Chloride 103 mmol/L (98-107) 06/21/18 05:00 Carbon Dioxide 28 mmol/L (22-30) 06/21/18 05:00 Anion Gap 11 (10-20) 06/21/18 05:00 BUN 42 mg/dl (9-20) H 06/21/18 05:00 Creatinine 0.9 mg/dl (0.8-1.5) 06/21/18 05:00 Est GFR ( Amer) > 60 06/21/18 05:00 Est GFR (Non-Af Amer) > 60 06/21/18 05:00 Random Glucose 94 mg/dL (75-110) 06/21/18 05:00 Calcium 8.9 mg/dL (8.4-10.2) 06/21/18 05:00 Phosphorus 4.2 mg/dl (2.5-4.5) 06/21/18 05:21 Magnesium 2.1 MG/DL (1.6-2.3) 06/21/18 05:21 Iron 37 ug/dL (49-181) L 06/21/18 05:00 TIBC 360 ug/dL (250-450) 06/21/18 05:00 % Saturation 10 % (20-55) L 06/21/18 05:00 Ferritin 9.4 ng/Ml (17.9-464) L 06/21/18 05:00 Total Bilirubin 0.3 mg/dl (0.2-1.3) 06/21/18 05:00 AST 38 U/L (17-59) 06/21/18 05:00 ALT 28 U/L (21-72) 06/21/18 05:00 Alkaline Phosphatase 90 U/L (38-126) 06/21/18 05:00 Troponin I 0.0180 ng/mL (0.00-0.120) 06/21/18 05:21 Total Protein 7.0 G/DL (6.3-8.2) 06/21/18 05:00 Albumin 3.6 g/dL (3.5-5.0) 06/21/18 05:00 Globulin 3.4 gm/dL (2.2-3.9) 06/21/18 05:00 Albumin/Globulin Ratio 1.1 (1.0-2.1) 06/21/18 05:00 Attending/Attestation - Attestation I have personally seen and examined this patient.: Yes I have fully participated in the care of the patient.: Yes I have reviewed all pertinent clinical information, including history, physical exam and plan: Yes Notes (Text): agree with findings and plan as above
[2018-06-22 15:42] VITALS: BP 103/59; PULSE 42; TEMP 98; O2SAT 95
--- NOTE | 2018-06-22 22:43 | PN ---
DATE: 06/22/2018 SUBJECTIVE: The patient denies any dizziness, headache, chest pain, or shortness of breath. PHYSICAL EXAMINATION: VITAL SIGNS: Blood pressure 103/59, heart rate, the latest one was reported 42, earlier was 61 and 60 beats per minute, and respirations 18. HEENT: Normocephalic. CHEST: Clear. HEART: S1 and S2 regular. EXTREMITIES: No edema. LABORATORY DATA: Three sets of troponins are not in elevated range. Echocardiographic study revealed normal ejection fraction, mildly dilated left atrium, and mild tricuspid insufficiency. Chest CT angio, no evidence of pulmonary embolism, a 1.4 cm rounded intermediate attenuation cortical mass in the mid right kidney. Recommended additional evaluation with ultrasound. Inferior vena cava filter noted. ASSESSMENT: 1. Chest pain, myocardial infarction is ruled out. 2. Paroxysmal atrial fibrillation, by history. The patient is on Eliquis therapy. 3. Mild anemia. 4. Right renal mass. RECOMMENDATIONS: Case was discussed with the medical team. Continue Eliquis 2.5 mg twice a day, Lasix 20 mg once a day, Lipitor 20 mg once a day, Toprol XL 100 mg once a day, and Zestril 20 mg once a day. 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 Gomez, and according to the medical team, we will undergo further imaging evaluation and followup with his right renal mass as an outpatient. Clayton Hoover MD
== END 2018-06-22 15:40 | disposition home or self-care (01) ==
LOC: H.ER 17:21 → H.ERHOLD 21:51 → H.TEL 23:54
PROVIDERS: ADMIT Internal Medicine; ATTEND Internal Medicine
DX: R07.89 Other chest pain (principal); I48.0 Paroxysmal atrial fibrillation; I48.2 Chronic atrial fibrillation; N28.89 Other specified disorders of kidney and ureter; N40.0 Benign prostatic hyperplasia without lower urinary tract symptoms; Z79.01 Long term (current) use of anticoagulants; Z79.82 Long term (current) use of aspirin; Z79.899 Other long term (current) drug therapy; Z86.711 Personal history of pulmonary embolism; Z87.01 Personal history of pneumonia (recurrent); F10.10 Alcohol abuse, uncomplicated; F41.9 Anxiety disorder, unspecified; M54.9 Dorsalgia, unspecified; G89.29 Other chronic pain; H26.9 Unspecified cataract; M19.90 Unspecified osteoarthritis, unspecified site; D50.9 Iron deficiency anemia, unspecified; E78.00 Pure hypercholesterolemia, unspecified; E78.5 Hyperlipidemia, unspecified; I10 Essential (primary) hypertension
CPT/HCPCS: 36415; 71046; 71275; 80053; 82728; 83540; 83550; 83735; 84100; 84484; 85025; 93005; 93306; 99285; G0378; Q9967